=== PATIENT | male | born 1955 | race Caucasian/White ===

== ENCOUNTER 2016-10-14 22:22 | Emergency (ER) | payer MEDICAID, MEDICARE ==
[~2016-10-14] VITALS: Ht 182.9 cm; Wt 68.0 kg
[~2016-10-14 22:22] MED LIST: GABA100C4 PO; PLAV75TA29 PO; REME15TA PO
[2016-10-14 22:25] VITALS: BP 137/65; PULSE 79; RESP 16; TEMP 98.4; O2SAT 97
== END 2016-10-15 02:00 | disposition left against medical advice (07) ==
LOC: NED 22:22
DX: R22.41 Localized swelling, mass and lump, right lower limb (principal); R23.8 Other skin changes; Z53.21 Procedure and treatment not carried out due to patient leaving prior to being seen by health care provider
CPT/HCPCS: 99281

== ENCOUNTER 2016-11-17 17:07 | Emergency (ER) | payer MEDICARE ==
[~2016-11-17] VITALS: Ht 182.9 cm; Wt 65.0 kg
[2016-11-17 17:09] VITALS: BP 168/97; PULSE 76; RESP 17; TEMP 98.5; O2SAT 98
== END 2016-11-17 20:01 | disposition left against medical advice (07) ==
LOC: NED 17:07
DX: Z53.21 Procedure and treatment not carried out due to patient leaving prior to being seen by health care provider (principal)
CPT/HCPCS: 99281

== ENCOUNTER 2016-12-17 22:33 | Inpatient (IN) | payer MEDICARE, MEDICAID ==
[~2016-12-17] VITALS: Ht 182.9 cm; Wt 60.0 kg
[2016-12-17 22:44] VITALS: BP 120/77; PULSE 108; RESP 12; TEMP 99.3; O2SAT 98
[2016-12-17] MEDS ORDERED: DILA4TAB2 PO (22:56)
[2016-12-17] MEDS ORDERED: SODIUM CHLORIDE 0.9% FLUSH 10 ML FLUSH IVF PRN (23:15)
[2016-12-17 23:49] LABS: AUTOMATED NEUTROPHIL # 3.8 TH/MM3 (1.8-7.7); BASOPHIL % 0.8 % (0.0-2.0); EOSINOPHIL % 0.5 % (0.0-4.0); HEMATOCRIT 27.7 % (39.0-51.0); HEMO FLAGS DIFF FINAL; LYMPH % 10.3 % (9.0-44.0); LYMPHOCYTE # 0.5 TH/MM3 (1.0-4.8); MEAN CELL VOLUME 79.1 FL (80.0-100.0); MEAN CORPUSCULAR HEMOGLOBIN 25.4 PG (27.0-34.0); MEAN CORPUSCULAR HGB CONC 32.2 % (32.0-36.0); MONO % 5.5 % (0.0-8.0); NEUT % 82.9 % (16.0-70.0); PLATELET COUNT 166 TH/MM3 (150-450); RED CELL DISTRIBUTION WIDTH 15.3 % (11.6-17.2); WHITE BLOOD COUNT 4.5 TH/MM3 (4.0-11.0)
[2016-12-18] VITALS (14 sets, daily range): BP systolic 110–131; BP diastolic 57–75; PULSE 72–111; RESP 17–20; TEMP 97.7–99.9; O2SAT 94–99
--- NOTE | 2016-12-18 00:07 | RADRPT ---
EXAM DATE/TIME: 12/17/2016 23:33 [facility] COMPARISON: No previous studies available for comparison. INDICATIONS : Shortness of breath. MEDICAL HISTORY : Hepatitis C. Hypertension IV drug usage SURGICAL HISTORY : Appendectomy. Fusion, cervical. ENCOUNTER: Initial ACUITY: 1 day PAIN SCORE: 0/10 LOCATION: Bilateral chest FINDINGS: Mild diffuse interstitial opacities are seen in both lungs. There is mild streaky infiltrate of the r ight lung base. No large areas of consolidation are seen. No oral effusion or pneumothorax. Heart size stable, within normal limits. CONCLUSION: Mild diffuse interstitial infiltrates suggesting noncardiogenic pulmonary edema or atypical/viral pne umonia. Atelectasis versus early/mild lobar consolidation of the right base. Jarred Agustin MD on December 18, 2016 at 0:05 Board Certified Radiologist. This report was verified electronically.
[2016-12-18 00:27] LABS: ALKALINE PHOSPHATASE 117 U/L (45-117); ALT (GPT) 18 U/L (12-78); ANION GAP 9 MEQ/L (5-15); AST (GOT) 35 U/L (15-37); BICARBONATE 25.8 MEQ/L (21.0-32.0); BLOOD UREA NITROGEN 10 MG/DL (7-18); CHLORIDE 101 MEQ/L (98-107); GLOMERULAR FILTRATION RATE 85 ML/MIN (>89); MAGNESIUM 1.8 MG/DL (1.5-2.5); SODIUM (NA) 136 MEQ/L (136-145); TOTAL BILIRUBIN ADULT 0.7 MG/DL (0.2-1.0)
[2016-12-18 00:29] LABS: CREATINE KINASE 61 U/L (39-308); POTASSIUM 4.2 MEQ/L (3.5-5.1)
[2016-12-18] MEDS ORDERED: ASPIRIN 81 MG CHEW TAB CHEW ONE (03:00)
[2016-12-18] MEDS ORDERED: PANTOPRAZOLE SODIUM 40 MG VIAL IV PUSH ONE (03:00)
[2016-12-18] MEDS ORDERED: SODIUM CHLORID 0.9% 500 ML INJ 500 ML IV SCH (03:00)
[2016-12-18] MEDS ORDERED: CLINDAMYCIN INJ 600 MG in SODIUM CHLORIDE 0.9% INJ 100 ML IV ONE (03:00)
--- NOTE | 2016-12-18 03:19 | PD ---
HPI Chief Complaint: Respiratory Symptoms Time Seen by Provider: 23:11 Travel History International Travel<30 days: No Contact w/Intl Traveler<30days: No Traveled to known affect area: No History of Present Illness HPI 61-year-old male presents to the emergency department by EMS transport for complaint of 2 days of shortness of breath and multiple wounds and draining ulcerations of the legs and arms. Patient denies any substance use. Patient admits to previous IV drug abuse. Patient was also history of hypertension, dyslipidemia, COPD, CVA, cardiac disease, and peripheral neuropathy with chronic pain syndrome.. Patient took his last pain medication before coming to the emergency room. Patient was given updraft treatments 2 en route to the hospital with symptom relief. Patient does not report orthopnea or PND. Patient does not report worsening dyspnea on exertion but does have this periodically. Patient has had no claudication. Patient denies any fever or chills. Patient had chest tightness earlier but after updraft treatments that has resolved and denies any pain at this time. Patient denies any generalized weakness has had no nausea vomiting abdominal pain dysuria frequency urgency melena or hematochezia. Patient is prescribed pain medication through pain management provider and [facility] Past Medical History Narrative Medical Plavix CVA hypertension dyslipidemia COPD hepatitis C cardiac disease abnormal EKG cholecystectomy C-spine surgery tobaccoism; nursing notes reviewed Hx Anticoagulant Therapy: Yes (PLAVIX) Arthritis: No Asthma: No Autoimmune Disease: No Blood Disorders: No Anxiety: No Depression: Yes Heart Rhythm Problems: No Cancer: No Cardiovascular Problems: Yes High Cholesterol: No Chemotherapy: No Chest Pain: No Congestive Heart Failure: No Cirrhosis: Yes COPD: No Cerebrovascular Accident: Yes Diabetes: No Diminished Hearing: No Endocrine: No Gastrointestinal Disorders: Yes GERD: No Glaucoma: No Genitourinary: No Headaches: Yes Hepatitis: Yes (HEP-C) Hiatal Hernia: No Hypertension: Yes (states resolved) Immune Disorder: No Implanted Vascular Access Dvce: No Musculoskeletal: Yes Neurologic: Yes Psychiatric: Yes Reproductive: No Respiratory: Yes Integumentary: Yes (easily compromised) Immunizations Current: No Migraines: Yes Radiation Therapy: No Seizures: No Sickle Cell Disease: No Sleep Apnea: No Ulcer: No Past Surgical History Appendectomy: Yes Body Medical Devices: METAL , SCREWS IN C5, C6 Cardiac Surgery: No Cholecystectomy: Yes Ear Surgery: No Endocrine Surgery: No Eye Surgery: Yes Genitourinary Surgery: No Neurologic Surgery: Yes (c5-c6 discectomy and plating ) Oral Surgery: No Pacemaker: No Thoracic Surgery: No Other Surgery: Yes (PLATE IN NECK ) Social History Alcohol Use: No Tobacco Use: Yes (4-5 CIGARS A DAY ) Substance Use: No Allergies-Medications (Allergen,Severity, Reaction): Coded Allergies: penicillin G (Unverified Allergy, Intermediate, SOB, RASH, 11/28/16) *MDRO Multi-Drug Resistant Organism (Verified Adverse Reaction, Unknown, ) MRSA (wound) - 12/20/2012; (leg) - 11/01/15 Reported Meds & Prescriptions Reported Meds & Active Scripts Active Reported Dilaudid (Hydromorphone HCl) 4 Mg Tab 4 Mg PO Q6H PRN Plavix (Clopidogrel Bisulfate) 75 Mg Tab 75 Mg PO DAILY Gabapentin 100 Mg Cap 100 Mg PO TID Review of Systems Except as stated in HPI: all other systems reviewed are Neg General / Constitutional: No: Fever, Chills HENT: No: Congestion Cardiovascular: Positive: Chest Pain or Discomfort Respiratory: Positive: Shortness of Breath Gastrointestinal: No: Nausea, Abdominal Pain Genitourinary: No: Flank Pain Musculoskeletal: Positive: Myalgias, Arthralgias Skin: Positive Rash, Positive Lumps Neurologic: No: Weakness Psychiatric: No: Anxiety Hematologic/Lymphatic: No: Lymph Node Enlargement Physical Exam Narrative GENERAL: Well-developed well-nourished disheveled male in no acute distress no respiratory distress SKIN: Warm and dry. Multiple soft tissue areas of induration tenderness with and without ulceration or pustules over the bilateral upper extremities and lower extremities HEAD: Normocephalic. Atraumatic. EYES: No scleral icterus. No injection or drainage. NECK: Supple, trachea midline. No JVD or lymphadenopathy. CARDIOVASCULAR: Regular rate and rhythm without murmurs, gallops, or rubs. RESPIRATORY: Breath sounds equal bilaterally. No accessory muscle use. Few end expiratory wheezes GASTROINTESTINAL: Abdomen soft, non-tender, nondistended. MUSCULOSKELETAL: No cyanosis, or edema. BACK: Nontender without obvious deformity. No CVA tenderness. Data Data Last Documented VS Vital Signs Date Time Temp Pulse Resp B/P (MAP) Pulse Ox O2 Delivery O2 Flow Rate FiO2 12/17/16 22:48 108 12 98 Room Air 12/17/16 22:44 99.3 120/77 (91) Orders Orders Complete Blood Count With Diff (12/17/16 23:11) Comprehensive Metabolic Panel (12/17/16 23:11) B-Type Natriuretic Peptide (12/17/16 23:11) Magnesium (Mg) (12/17/16 23:11) Ckmb (Isoenzyme) Profile (12/17/16 23:11) Troponin I (12/17/16 23:11) Urinalysis - C+S If Indicated (12/17/16 23:11) Blood Culture (12/17/16 23:11) Iv Access Insert/Monitor (12/17/16 23:11) Electrocardiogram (12/17/16 23:11) Ecg Monitoring (12/17/16 23:11) Oximetry (12/17/16 23:11) Oxygen Administration (12/17/16 23:11) Chest, Single Ap (12/17/16 23:11) Sodium Chloride 0.9% Flush (Ns Flush) (12/17/16 23:15) Wound Culture And Gram Stain (12/17/16 23:11) Clindamycin Inj (Cleocin Inj) (12/18/16 03:00) Aspirin Chew (Aspirin Chew) (12/18/16 03:00) Pantoprazole Inj (Protonix Inj) (12/18/16 03:00) Sodium Chlorid 0.9% 500 Ml Inj (Ns 500 M (12/18/16 03:00) Albuterol-Ipratropium Neb (Duoneb Neb) (12/18/16 03:30) Methylprednisolone So Succ Inj (Solumedr (12/18/16 03:30) Drug Screen, Random Urine (12/18/16 03:19) Labs Laboratory Tests Test 12/17/16 23:26 White Blood Count 4.5 TH/MM3 Red Blood Count 3.50 MIL/MM3 Hemoglobin 8.9 GM/DL Hematocrit 27.7 % Mean Corpuscular Volume 79.1 FL Mean Corpuscular Hemoglobin 25.4 PG Mean Corpuscular Hemoglobin Concent 32.2 % Red Cell Distribution Width 15.3 % Platelet Count 166 TH/MM3 Mean Platelet Volume 7.2 FL Neutrophils (%) (Auto) 82.9 % Lymphocytes (%) (Auto) 10.3 % Monocytes (%) (Auto) 5.5 % Eosinophils (%) (Auto) 0.5 % Basophils (%) (Auto) 0.8 % Neutrophils # (Auto) 3.8 TH/MM3 Lymphocytes # (Auto) 0.5 TH/MM3 Monocytes # (Auto) 0.2 TH/MM3 Eosinophils # (Auto) 0.0 TH/MM3 Basophils # (Auto) 0.0 TH/MM3 CBC Comment DIFF FINAL Differential Comment Blood Urea Nitrogen 10 MG/DL Creatinine 0.91 MG/DL Random Glucose 105 MG/DL Total Protein 6.6 GM/DL Albumin 2.6 GM/DL Calcium Level 7.9 MG/DL Magnesium Level 1.8 MG/DL Alkaline Phosphatase 117 U/L Aspartate Amino Transf (AST/SGOT) 35 U/L Alanine Aminotransferase (ALT/SGPT) 18 U/L Total Bilirubin 0.7 MG/DL Sodium Level 136 MEQ/L Potassium Level 4.2 MEQ/L Chloride Level 101 MEQ/L Carbon Dioxide Level 25.8 MEQ/L Anion Gap 9 MEQ/L Estimat Glomerular Filtration Rate 85 ML/MIN Total Creatine Kinase 61 U/L Troponin I 0.06 NG/ML B-Type Natriuretic Peptide 148 PG/ML MDM Medical Decision Making Medical Screen Exam Complete: Yes Emergency Medical Condition: Yes Medical Record Reviewed: Yes Interpretation(s) Last Impressions Chest X-Ray 12/17/16 [id number] Signed Impressions: Service Date/Time: Saturday, December 17, 2016 23:33 - CONCLUSION: Mild diffuse interstitial infiltrates suggesting noncardiogenic pulmonary edema or atypical/viral pneumonia. Atelectasis versus early/mild lobar consolidation of the right base. Jarred Agustin MD EKG normal sinus rhythm rate 90 age-indeterminate anteroseptal infarct no acute reciprocal changes QS in V1 through V3; review of medical records indicates perforation with previous anterior septal infarct changes on EKG Vital Signs Date Time Temp Pulse Resp B/P (MAP) Pulse Ox O2 Delivery O2 Flow Rate FiO2 12/17/16 22:48 108 12 98 Room Air 12/17/16 22:44 99.3 108 12 120/77 (91) 98 CBC & BMP Diagram 12/17/16 23:26 Total Protein 6.6, Albumin 2.6 L, Calcium Level 7.9 L, Magnesium Level 1.8, Alkaline Phosphatase 117, Aspartate Amino Transf (AST/SGOT) 35, Alanine Aminotransferase (ALT/SGPT) 18, Total Bilirubin 0.7 Differential Diagnosis Cellulitis abscesses COPD exacerbation CHF ACS [place] anemia Narrative Course IV access obtained specimens collected and sent for resulting EKG shows QS anteroseptally no ischemic changes or supple changes noted; patient given additional updraft treatment; cultures obtained from wound sites and antibiotic administered Patient resting comfortable voicing no concerns or complaints Patient administered aspirin and Protonix rectal exam negative for blood and noted to have anemic hemoglobin of 8.6 but in view of multiple risk factors for cardiac disease also administered aspirin after troponin I 0.06. Patient with multiple upper extremity and lower extremity areas of soft tissue tenderness swelling induration with and without fluctuance and various stages of ulcerations; administered clindamycin for abscesses/cellulitis after cultures obtained Patient administered Solu-Medrol and additional DuoNeb updraft for COPD/ emphysema symptoms with resolution of shortness of breath will require ongoing updraft treatments Review of medical records indicates last stress test 03/10/16 showed evidence of mild hypokinesis and low normal ejection fraction with dizziness and some urination of stress portion secondary to symptoms but no EKG changes. Patient resting comfortably at this time will admit for ongoing management of COPD cellulitis and abscess of the forearm and lower extremities all elevated troponin I 0.06 history of abnormal EKG/suspect coronary artery disease and history of IV drug abuse Physician Communication Physician Communication Discussed with Dr. Otto for admission Diagnosis Primary Impression: COPD (chronic obstructive pulmonary disease) Qualified Codes: J44.9 - Chronic obstructive pulmonary disease, unspecified Additional Impressions: Cellulitis and abscess of forearm Elevated troponin I level Hx IVDA Admitting Information Admitting Physician Requests: Admit Candida Silva MD Dec 18, 2016 03:19
[2016-12-18] MEDS ORDERED: methylPREDNISolone SOD SUCC 125 MG/2 ML VIAL IV PUSH ONE (03:30)
[2016-12-18] MEDS ORDERED: RESP: ALBUTEROL 2.5 MG/IPRATROPIUM 0.5 MG NEB (SCH) NEB ONE (03:30)
[2016-12-18] MEDS ORDERED: SODIUM CHLORIDE 0.9% FLUSH 10 ML FLUSH IVF PRN (03:30)
[2016-12-18] MEDS ORDERED: BISACODYL 10 MG SUPP RECTAL PRN (04:15)
[2016-12-18] MEDS ORDERED: MAGNESIUM HYDROXIDE SUSP 30 ML CUP PO PRN (04:15)
[2016-12-18] MEDS ORDERED: SENNOSIDES 8.6 MG TAB PO PRN (04:15)
[2016-12-18] MEDS ORDERED: ACETAMINOPHEN 325 MG TAB PO PRN (04:15)
[2016-12-18] MEDS ORDERED: NALOXONE HCL 0.4 MG/ML AMP IV PRN (04:15)
[2016-12-18] MEDS ORDERED: RESP: ALBUTEROL 2.5 MG/IPRATROPIUM 0.5 MG NEB (PRN) NEB (04:15)
[2016-12-18] MEDS ORDERED: ONDANSETRON HCL 4 MG/2 ML VIAL IVP PRN (04:15)
[2016-12-18] MEDS ORDERED: RESP: ALBUTEROL 2.5 MG/3 ML NEB (PRN) INH (04:15)
[2016-12-18 04:22] LABS: BLOOD, URINE NEG (NEG); COMMENT (UR) CULT NOT INDICATED; CULTURE IF INDICATED CULT NOT INDICATED; GLUCOSE,URINE NEG (NEG); HYALINE CAST, URINE 1 /lpf (RARE); KETONE, URINE NEG (NEG); MUCUS URINE FEW /lpf (OCC); NITRITE,URINE NEG (NEG); PH, URINE 7.5 (5.0-8.5); URINE COLOR YELLOW (YELLW/STRAW)
--- NOTE | 2016-12-18 04:32 | HHI.HP ---
[facility] Meron Guerra MD Admission Diagnosis copd; cellulitis/abscesses arm/leg; elevated tropnin I Diagnoses: Chief Complaint: Short of breath Travel History International Travel<30 Days: No Contact w/Intl Traveler <30 Da: No Traveled to Known Affected Are: No History of Present Illness 61 years old female presented to the ED complaining of 2days history of worsening short of breath, along with multiple wound some of it ulcerating and draining pus those on the leg and arm patient has a history of substance abuse iv in the past, history of hypertension hyperlipidemia COPD CVA cardiac disease and peripheral neuropathy. Patient. Patient on nasal cannula O2, stated he's been coughing and the cough was with yellowish phlegm, he had woken up yesterday drenching in sweat. No nausea or vomiting abdominal pain diarrhea or constipation, dysuria urgency frequency dizziness or lightheadedness Review of Systems All systems reviewed and was positive for what is mentioned in history of present illness otherwise negative Past Family Social History Past Medical History History of CVA dyslipidemia COPD Hepatitisc Cardiac normal , Past Surgical History Not aware of significant disease in the family Allergies: Coded Allergies: penicillin G (Unverified Allergy, Intermediate, SOB, RASH, 11/28/16) *MDRO Multi-Drug Resistant Organism (Verified Adverse Reaction, Unknown, ) MRSA (wound) - 12/20/2012; (leg) - 11/01/15 Family History Smoke daily for last over 20 years Alcohol or illicit abuse Physical Exam Vital Signs Vital Signs Date Time Temp Pulse Resp B/P (MAP) Pulse Ox O2 Delivery O2 Flow Rate FiO2 12/18/16 03:50 111 20 120/68 (85) 99 2.00 12/18/16 03:49 99 2.00 12/18/16 03:32 95 Nasal Cannula 2.00 12/17/16 22:48 108 12 98 Room Air 12/17/16 22:44 99.3 108 12 120/77 (91) 98 Physical Exam GENERAL: This is a well-nourished, well-developed patient, in no apparent distress. SKIN: No rashes, ecchymoses or lesions. Cool and dry. HEAD: Atraumatic. Normocephalic. No temporal or scalp tenderness. EYES: Pupils equal round and reactive. Extraocular motions intact. No scleral icterus. No injection or drainage. ENT: Nose without bleeding, purulent drainage or septal hematoma. Throat without erythema, tonsillar hypertrophy or exudate. Uvula midline. Airway patent. NECK: Trachea midline. No JVD or lymphadenopathy. Supple, nontender, no meningeal signs. CARDIOVASCULAR: Regular rate and rhythm without murmurs, gallops, or rubs. RESPIRATORY: Clear to auscultation. Breath sounds equal bilaterally. No wheezes , rales, or rhonchi. GASTROINTESTINAL: Abdomen soft, non-tender, nondistended. No hepato-splenomegaly , or palpable masses. No guarding. MUSCULOSKELETAL: Extremities without clubbing, cyanosis, or edema. No joint tenderness, effusion, or edema noted. No calf tenderness. Negative Homans sign bilaterally. NEUROLOGICAL: Awake and alert. Cranial nerves II through XII intact. Motor and sensory grossly within normal limits. Five out of 5 muscle strength in all muscle groups. Normal speech. Laboratory Laboratory Tests Test 12/17/16 23:26 12/18/16 03:45 White Blood Count 4.5 Red Blood Count 3.50 Hemoglobin 8.9 Hematocrit 27.7 Mean Corpuscular Volume 79.1 Mean Corpuscular Hemoglobin 25.4 Mean Corpuscular Hemoglobin Concent 32.2 Red Cell Distribution Width 15.3 Platelet Count 166 Mean Platelet Volume 7.2 Neutrophils (%) (Auto) 82.9 Lymphocytes (%) (Auto) 10.3 Monocytes (%) (Auto) 5.5 Eosinophils (%) (Auto) 0.5 Basophils (%) (Auto) 0.8 Neutrophils # (Auto) 3.8 Lymphocytes # (Auto) 0.5 Monocytes # (Auto) 0.2 Eosinophils # (Auto) 0.0 Basophils # (Auto) 0.0 CBC Comment DIFF FINAL Differential Comment Blood Urea Nitrogen 10 Creatinine 0.91 Random Glucose 105 Total Protein 6.6 Albumin 2.6 Calcium Level 7.9 Magnesium Level 1.8 Alkaline Phosphatase 117 Aspartate Amino Transf (AST/SGOT) 35 Alanine Aminotransferase (ALT/SGPT) 18 Total Bilirubin 0.7 Sodium Level 136 Potassium Level 4.2 Chloride Level 101 Carbon Dioxide Level 25.8 Anion Gap 9 Estimat Glomerular Filtration Rate 85 Total Creatine Kinase 61 Troponin I 0.06 B-Type Natriuretic Peptide 148 Urine Color YELLOW Urine Turbidity CLEAR Urine pH 7.5 Urine Specific [place] 1.013 Urine Protein NEG Urine Glucose (UA) NEG Urine Ketones NEG Urine Occult Blood NEG Urine Nitrite NEG Urine Bilirubin NEG Urine Urobilinogen 2.0 Urine Leukocyte Esterase NEG Urine WBC 1 Urine Hyaline Casts 1 Urine Mucus FEW Microscopic Urinalysis Comment CULT NOT INDICATED Urine Opiates Screen POS Urine Barbiturates Screen NEG Urine Amphetamines Screen NEG Urine Benzodiazepines Screen NEG Urine Cocaine Screen POS Urine Cannabinoids Screen NEG Date/Time Source Procedure Growth Status 12/17/16 23:28 Blood Peripheral Aerobic Blood Culture Pending Received 12/17/16 23:28 Blood Peripheral Anaerobic Blood Culture Pending Received 12/17/16 23:20 Wound Leg Gram Stain Pending Received 12/17/16 23:20 Wound Leg Wound Culture Pending Received Result Diagram: 12/17/16232512/17/162325 Imaging Last Impressions Chest X-Ray 12/17/161 Signed Impressions: Service Date/Time: Saturday, December 17, 2016 23:33 - CONCLUSION: Mild diffuse interstitial infiltrates suggesting noncardiogenic pulmonary edema or atypical/viral pneumonia. Atelectasis versus early/mild lobar consolidation of the right base. Jarred Agustin MD Caprini VTE Risk Assessment Caprini VTE Risk Assessment: Mod/High Risk (score >= 2) VTE Pharm Contraindication: Coagulopathy,INR elevated Caprini Risk Assessment Model Point Value = 1 Point Value = 2 Point Value = 3 Point Value = 5 Age 41-60 Minor surgery BMI > 25 kg/m2 Swollen legs Varicose veins or History of unexplained or recurrent spontaneous Oral contraceptives or hormone replacement Sepsis (< 1 month) Serious lung disease, including pneumonia (< 1 month) Abnormal pulmonary function Acute myocardial infarction Congestive heart failure (< 1 month) History of inflammatory bowel disease Medical patient at bed rest Age 61-74 Arthroscopic surgery Major open surgery (> 45 min) Laparoscopic surgery (> 45 min) Malignancy Confined to bed (> 72 hours) Immobilizing plaster cast Central venous access Age >= 75 History of VTE Family history of VTE Factor V Leiden Prothrombin [id number] Lupus anticoagulant Anticardiolipin antibodies Elevated serum homocysteine Heparin-induced thrombocytopenia Other congenital or acquired thrombophilia Stroke (< 1 month) Elective arthroplasty Hip, pelvis, or leg fracture Acute spinal cord injury (< 1 month) Prophylaxis Regimen Total Risk Factor Score Risk Level Prophylaxis Regimen 0-1 Low Early ambulation 2 Moderate Order ONE of the following: *Sequential Compression Device (SCD) *Heparin 5000 units SQ BID 3-4 Higher Order ONE of the following medications: *Heparin 5000 units SQ TID *Enoxaparin/Lovenox 40 mg SQ daily (WT < 150 kg, CrCl > 30 mL/min) *Enoxaparin/Lovenox 30 mg SQ daily (WT < 150 kg, CrCl > 10-29 mL/min) *Enoxaparin/Lovenox 30 mg SQ BID (WT < 150 kg, CrCl > 30 mL/min) AND/OR *Sequential Compression Device (SCD) 5 or more Highest Order ONE of the following medications: *Heparin 5000 units SQ TID (Preferred with Epidurals) *Enoxaparin/Lovenox 40 mg SQ daily (WT < 150 kg, CrCl > 30 mL/min) *Enoxaparin/Lovenox 30 mg SQ daily (WT < 150 kg, CrCl > 10-29 mL/min) *Enoxaparin/Lovenox 30 mg SQ BID (WT < 150 kg, CrCl > 30 mL/min) AND *Sequential Compression Device (SCD) Assessment and Plan Assessment and Plan 61 years old male admitted with -Severe short of breath with interstitial infiltrate on chest x-ray possible atypical versus bilateral pneumonia -Multiple abscess wound with cellulitis on the upper and lower extremity -Positive scratch by the dog on the left arm suspicious for [place], and history of IVDA which could be responsible for this infection -Increase troponin rule out underlying ischemia -Tobacco abuse> patient counseled -Underlying COPD -History of dyslipidemia, CVA, peripheral neuropathy, chronic pain syndrome -Microcytic hyperchromic anemia -DVT prophylaxis Plan: Admit to observation with telemetry O2 to keep O2 sat above 92% DuoNeb scheduled and as needed Continue cycling cardiac enzyme Check urine antigen for Legionella and pneumococcus Patient received clindamycin in ED for skin abscess Will start Levaquin for respiratory infection coverage Consult ID to guide antibiotic therapy, suspicious Scratch disease versus IVDA, check 2-D echo, monitor for any fever. SCD and heparin for DVT prophylaxis Angelina Otto MD Dec 18, 2016 04:32
[2016-12-18] MEDS: LEVOFLOXACIN 750 MG TAB PO SCH (07:17)
[2016-12-18] MEDS: RESP: ALBUTEROL 2.5 MG/IPRATROPIUM 0.5 MG NEB (SCH) NEB ×4 (07:47→20:54)
[2016-12-18] MEDS: DOCUSATE SODIUM 50 MG/SENNA 8.6 MG TAB PO SCH ×2 (09:00→09:48)
[2016-12-18] MEDS: CLOPIDOGREL 75 MG TAB PO SCH (09:48)
[2016-12-18] MEDS: GABAPENTIN 100 MG CAP PO SCH ×3 (09:48→18:00)
[2016-12-18] MEDS: SODIUM CHLORIDE 0.9% FLUSH 10 ML FLUSH IV FLUSH SCH ×2 (09:49→20:53)
[2016-12-18] MEDS ORDERED: RESP: ALBUTEROL 2.5 MG/IPRATROPIUM 0.5 MG NEB (SCH) INH (10:00)
--- NOTE | 2016-12-18 14:18 | HHI.PR ---
Subjective Remarks Follow-up COPD exacerbation and now non-ST elevation SD 12/18/16-patient seen and examined, reports some improvement of shortness of breath. Requesting some narcotics otherwise states he will signing AMA. Objective Vitals Vital Signs Date Time Temp Pulse Resp B/P (MAP) Pulse Ox O2 Delivery O2 Flow Rate FiO2 12/18/16 13:49 99.9 80 19 126/75 (92) 96 12/18/16 10:25 84 12/18/16 07:50 94 21 12/18/16 07:26 97.7 87 20 131/67 (88) 98 12/18/16 05:33 12/18/16 05:16 98.2 78 18 112/66 (81) 95 12/18/16 03:50 111 20 120/68 (85) 99 2.00 12/18/16 03:49 99 2.00 12/18/16 03:32 95 Nasal Cannula 2.00 12/17/16 22:48 108 12 98 Room Air 12/17/16 22:44 99.3 108 12 120/77 (91) 98 I/O 12/17/16 12/17/16 12/17/16 12/18/16 12/18/16 12/18/16 07:00 15:00 23:00 07:00 15:00 23:00 Intake Total 300 ml Balance 300 ml Intake Oral 300 ml Result Diagram: 12/17/16232512/17/162325 Imaging Last Impressions Chest X-Ray 12/17/16 2311 Signed Impressions: Service Date/Time: Saturday, December 17, 2016 23:33 - CONCLUSION: Mild diffuse interstitial infiltrates suggesting noncardiogenic pulmonary edema or atypical/viral pneumonia. Atelectasis versus early/mild lobar consolidation of the right base. Jarred Agustin MD Objective Remarks GENERAL: NAD SKIN: Warm and dry. HEAD: Normocephalic. EYES: No scleral icterus. No injection or drainage. NECK: Supple, trachea midline. No JVD or lymphadenopathy. CARDIOVASCULAR: Regular rate and rhythm without murmurs, gallops, or rubs. RESPIRATORY: Breath sounds decrease bilaterally. No accessory muscle use. GASTROINTESTINAL: Abdomen soft, non-tender, nondistended. MUSCULOSKELETAL: No cyanosis, or edema. BACK: Nontender without obvious deformity. No CVA tenderness. A/P Assessment and Plan 61-year-old man with Dyspnea Community-acquired pneumonia Chest x-ray noted in review Check CTA to rule out PE S/p clindamycin and currently on Levaquin pending evaluation from infectious disease specialist Non-ST elevation SD? Cocaine cardiomyopathy? ACS rule out per protocol with serial cardiac enzyme and EKGs Cardiology consultation for evaluation for possible Left Heart Cath Check 2D echo Lovenox subcutaneous every 12 COPD exacerbation CTA pending to rule out PE Change Solu-Medrol to 20 mg every 8 hour Start Symbicort, Spiriva and continue with JULIO as well as antibiotic Tobacco cessation counseling provided Nicotine dependence Counseled to quit Nicotine patch DVT prophylaxis: Oracio Edwards MD Dec 18, 2016 14:18
[2016-12-18] MEDS ORDERED: methylPREDNISolone SOD SUCC 125 MG/2 ML VIAL IVP SCH (15:00)
[2016-12-18] MEDS ORDERED: IOHEXOL 350 MG/ML 10 ML VIAL (for RAD DIAG) IVCONTRAST ONE (18:01)
--- NOTE | 2016-12-18 18:12 | RADRPT ---
EXAM DATE/TIME: 12/18/2016 17:50 [facility] COMPARISON: No previous studies available for comparison. INDICATIONS : Chest pain , evaluate for pulmonary emoblism. IV CONTRAST: 75 cc Omnipaque 350 (iohexol) IV RADIATION DOSE: 7.37 CTDIvol (mGy) MEDICAL HISTORY : Cardiovascular disease. Hepatitis C. Cirrhosis. SURGICAL HISTORY : None. ENCOUNTER: Initial ACUITY: 1 day PAIN SCALE: 3/10 LOCATION: chest TECHNIQUE: Volumetric scanning of the chest was performed using a pulmonary embolism protocol MIP images were re constructed. Using automated exposure control and adjustment of the mA and/or kV according to patien t size, radiation dose was kept as low as reasonably achievable to obtain optimal diagnostic quality images. DICOM format image data is available electronically for review and comparison. Follow-up recommendations for detected pulmonary nodules are based at a minimum on nodule size and pa tient risk factors according to Fleischner Society Guidelines. FINDINGS: LUNGS: Patchy airspace disease is seen in both the right and left lungs. There is trace fluid in the minor fissure on the right. There is nonspecific right hilar and mediastinal adenopath y. There is no central pulmonary emboli evident small right pleural effusion is evident. MEDIASTINUM: There is good visualization of the great vessels of the middle mediastinum. AXILLA: There is no axillary adenopathy MUSCULOSKELETAL: Within normal limits for patient age. MISCELLANEOUS: The visualized upper abdominal organs demonstrate no acute abnormality. CONCLUSION: There is no central pulmonary emboli. Minimal patchy airspace disease in the right lung with small right pleural effusion Right infrahilar adenopathy. Bronchoscopy would be of benefit for further evaluation. Jean-Claude Whitfield MD FACR on December 18, 2016 at 18:03 Board Certified Radiologist. This report was verified electronically.
--- NOTE | 2016-12-18 18:21 | MB ---
cc: TWYLA CRAWFORD M.D. DATE OF CONSULTATION 12/18/2016 HISTORY OF THE PRESENT ILLNESS Bay is a very pleasant 61-year-old gentleman who states he has had IL in the past. He smokes. He presents with chief complaint of shortness of breath and chest pain. His pain is currently relieved. He is actually asleep. He is difficult to arouse from sleep but he is lucid once he is awake. Otherwise denies any fevers, chills, cough, GI or bleeding, paroxysmal nocturnal dyspnea, orthopnea, syncope or dizziness. In the ER note he is short of breath x2 days. He has multiple wounds, draining ulcerations of the legs and arms. PAST MEDICAL HISTORY 1. IV drug abuse. 2. Hypertension. 3. Dyslipidemia. 4. Chronic obstructive pulmonary disease. 5. Cerebrovascular accident. 6. Cardiac disease. 7. Peripheral neuropathy. 8. Chronic pain syndrome. 9. History of hepatitis C. 10. C-spine surgery. 11. Depression. 12. Cirrhosis. 13. Appendectomy. 14. Metal screws at C5-C6. 15. Cholecystectomy. 16. Eye surgery. 17. C5-6 diskectomy and plating. SOCIAL HISTORY Denies alcohol use. Smokes four to five cigarettes a day. ALLERGIES MRSA. MEDICATIONS Prior to admission: 1. Dilaudid. 2. Plavix. 3. Gabapentin. Medications in the hospital: 1. Methyl prednisolone 20 milligrams IV q.8h. 2. Lovenox 60 subcu q.12 h. 3. Clopidogrel 75 mg daily. 4. Gabapentin 100 mg p.o. t.i.d. 5. Levofloxacin 750 mg q.24 h. PHYSICAL EXAMINATION VITAL SIGNS: Blood pressure 126/75, pulse 80, respiratory rate 19, temperature 99.9. GENERAL: He is alert and oriented times three in no acute distress. NECK: Supple. No JVD or bruits. CARDIOVASCULAR: Normal S1-S2. No murmurs, rubs, or gallops. LUNGS: Clear to auscultation bilaterally. ABDOMEN: Soft and nontender, nondistended with positive bowel sounds. EXTREMITIES: No lower extremity edema. His EKG shows anteroseptal Q waves, normal sinus rhythm at 91 beats per minute. Also note echocardiogram on October 25, 2015 showed an EF of 50-55%, mild stenosis of the aortic valve, mild aortic valve regurgitation. The mean aortic valve gradient was 15 mmHg. LABORATORY DATA White count 4.5, hemoglobin 8.9, hematocrit 27.7, platelet count was 66. Sodium 136, potassium 4.2, chloride 101, bicarbonate 25.8, BUN 10, creatinine 0.91. LFTs normal. Troponin is 0.06 initially then 1.12. BNP 148. Toxicology is positive for cocaine, opiates. DIAGNOSES He has the following diagnoses: 1. Non-ST elevation myocardial infarction. 2. Cocaine abuse. 3. History of IV drug abuse. 4. Ulcerations along the extremities. 5. Low albumin. 6. Decompensated congestive heart failure. 7. Aortic valve stenosis. 8. History of cirrhosis. 9. Tobacco use. 10. Anemia. DISCUSSION At this point in time the patient does not appear to be an ideal candidate for catheterization and stenting due to his multiple extremity lacerations and anemia. Contact precautions and he is currently asymptomatic. I would prefer that he is more medically optimized. I agree with continuing Lovenox and Plavix. If the patient's hemoglobin remains stable and there is no active bleeding found and his extremity lesions improve, we will consider left heart catheterization. The patient is willing to proceed with left heart catheterization if necessary. Again he has multiple wounds and draining ulcerations of the legs and arms, therefore again I prefer medical management initially. The patient strongly recommended tobacco cessation. MD FELICIA Harding/KK /3:37 PM /5:47 PM
--- NOTE | 2016-12-18 20:03 | EKG ---
Date Performed: 12/18/2016 Time Performed: 03:00:41 PTAGE: 61 years EKG: Sinus rhythm ANTEROSEPTAL MYOCARDIAL INFARCTION ABNORMAL ECG PREVIOUS TRACING : 03/09/2016 21.57 DOCTOR: Cookie Berman Interpretating Date/Time 12/18/2016 20:01:23
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
[2016-12-18] MEDS ORDERED: Vancomycin Consult Pharmacy 1 EA OTHER SCH (20:30)
[2016-12-18] MEDS: ENOXAPARIN SODIUM 60 MG/0.6 ML SYRINGE SQ SCH (20:54)
[2016-12-18] MEDS: methylPREDNISolone SOD SUCC 125 MG/2 ML VIAL IVP SCH (22:08)
[2016-12-18] MEDS: VANCOMYCIN INJ 700 MG in SODIUM CHLOR 0.9% 250 ML INJ 250 ML IV SCH (22:08)
[2016-12-19] VITALS (9 sets, daily range): BP systolic 120–133; BP diastolic 61–90; PULSE 60–82; RESP 17–19; TEMP 97.8–98.5; O2SAT 95–100
[2016-12-19] MEDS: methylPREDNISolone SOD SUCC 125 MG/2 ML VIAL IVP SCH (06:05)
[2016-12-19] MEDS: LEVOFLOXACIN 750 MG TAB PO SCH (06:05)
[2016-12-19 06:48] LABS: AUTOMATED NEUTROPHIL # 8.9 TH/MM3 (1.8-7.7); BASOPHIL % 0.4 % (0.0-2.0); HEMO FLAGS DIFF FINAL; LYMPH % 5.6 % (9.0-44.0); LYMPHOCYTE # 0.5 TH/MM3 (1.0-4.8); MEAN CELL VOLUME 77.8 FL (80.0-100.0); MEAN CORPUSCULAR HEMOGLOBIN 25.4 PG (27.0-34.0); MEAN CORPUSCULAR HGB CONC 32.6 % (32.0-36.0); MONO % 2.9 % (0.0-8.0); NEUT % 91.1 % (16.0-70.0); PLATELET COUNT 251 TH/MM3 (150-450); RED BLOOD COUNT 4.11 MIL/MM3 (4.50-5.90); RED CELL DISTRIBUTION WIDTH 15.3 % (11.6-17.2); WHITE BLOOD COUNT 9.7 TH/MM3 (4.0-11.0)
[2016-12-19 06:58] LABS: BICARBONATE 26.8 MEQ/L (21.0-32.0); POTASSIUM 4.3 MEQ/L (3.5-5.1)
[2016-12-19] MEDS: RESP: ALBUTEROL 2.5 MG/IPRATROPIUM 0.5 MG NEB (SCH) NEB ×2 (07:55→11:25)
[2016-12-19] MEDS: CLOPIDOGREL 75 MG TAB PO SCH (09:42)
[2016-12-19] MEDS: SODIUM CHLORIDE 0.9% FLUSH 10 ML FLUSH IV FLUSH SCH (09:42)
[2016-12-19] MEDS: GABAPENTIN 100 MG CAP PO SCH (09:42)
[2016-12-19] MEDS: ENOXAPARIN SODIUM 60 MG/0.6 ML SYRINGE SQ SCH (09:42)
[2016-12-19] MEDS ORDERED: PNEUMOCOCCAL POLYVALENT INJ 25 MCG/0.5 ML SYR IM ONE (10:00)
[2016-12-19] MEDS ORDERED: INFLUENZA VIRUS VACCINE (QUADRIVALENT) 0.5 ML SYR IM ONE (10:00)
[2016-12-19] MEDS ORDERED: SUBO8MIS SL (10:05)
--- NOTE | 2016-12-19 10:10 | HHI.PR ---
Subjective Remarks Follow-up non-ST elevation CT/community-acquired bacteria pneumonia/bacteremia/ multiple skin abscesses 12/19/16-patient seen and examined, reports improvement of shortness of breath, 4 out of 4 blood culture positive. Complains of some back pain. Requesting to be placed back on his Suboxone Objective Vitals Vital Signs Date Time Temp Pulse Resp B/P (MAP) Pulse Ox O2 Delivery O2 Flow Rate FiO2 12/19/16 07:56 96 12/19/16 07:18 97.9 82 18 123/66 (85) 100 12/19/16 05:59 97.9 77 17 123/69 (87) 97 12/19/16 05:16 72 12/19/16 04:50 97.8 60 19 126/61 (82) 100 12/19/16 03:24 98.5 82 18 120/90 (100) 96 12/19/16 01:21 98.1 77 18 133/71 (91) 95 12/19/16 00:04 74 12/18/16 23:35 98.1 77 18 110/57 (74) 95 12/18/16 22:03 80 12/18/16 21:58 18 98 12/18/16 21:01 94 21 12/18/16 19:58 98.2 85 19 113/69 (84) 99 12/18/16 17:00 74 12/18/16 16:02 98.5 72 17 117/62 (80) 99 12/18/16 13:49 99.9 80 19 126/75 (92) 96 12/18/16 10:25 84 I/O 12/18/16 12/18/16 12/18/16 12/19/16 12/19/16 12/19/16 07:00 15:00 23:00 07:00 15:00 23:00 Intake Total 300 ml 240 ml 50 ml Balance 300 ml 240 ml 50 ml Intake Oral 300 ml 240 ml 50 ml # Voids 1 Result Diagram: 12/19/16 0510 12/19/16 [address] Angiography 12/18/16 0000 Signed Impressions: Service Date/Time: Sunday, December 18, 2016 17:50 - CONCLUSION: There is no central pulmonary emboli. Minimal patchy airspace disease in the right lung with small right pleural effusion Right infrahilar adenopathy. Bronchoscopy would be of benefit for further evaluation. Jean-Claude Whitfield MD FACR Chest X-Ray 12/17/16 2311 Signed Impressions: Service Date/Time: Saturday, December 17, 2016 23:33 - CONCLUSION: Mild diffuse interstitial infiltrates suggesting noncardiogenic pulmonary edema or atypical/viral pneumonia. Atelectasis versus early/mild lobar consolidation of the right base. Jarred Agustin MD Objective Remarks GENERAL: NAD SKIN: Warm and dry. HEAD: Normocephalic. EYES: No scleral icterus. No injection or drainage. NECK: Supple, trachea midline. No JVD or lymphadenopathy. CARDIOVASCULAR: Regular rate and rhythm without murmurs, gallops, or rubs. RESPIRATORY: Breath sounds decrease bilaterally. No accessory muscle use. GASTROINTESTINAL: Abdomen soft, non-tender, nondistended. MUSCULOSKELETAL: No cyanosis, or edema. BACK: Nontender without obvious deformity. No CVA tenderness. A/P Problem List: (1) Gram-positive cocci bacteremia ICD Code: R78.81 - Bacteremia (2) Non-ST elevation CT (NSTEMI) ICD Code: I21.4 - Non-ST elevation (NSTEMI) myocardial infarction (3) Bacterial skin infection of leg ICD Code: L03.119 - Cellulitis of unspecified part of limb (4) Community acquired bacterial pneumonia ICD Code: J15.9 - Unspecified bacterial pneumonia Assessment and Plan 61-year-old man with Gram-positive bacteremia 4/4 blood culture positive Currently on vancomycin per infectious disease specialist Repeat blood culture 2-D echo pending Bilateral lower extremities skin infections/abscesses Wound culture positive for MRSA Currently on vancomycin IV and by mouth Levaquin Dyspnea Community-acquired pneumonia Chest x-ray noted in review CTA ruled out PE Currently on vancomycin per infectious disease specialist Non-ST elevation CT Cocaine cardiomyopathy? ACS rule out per protocol with serial cardiac enzyme and EKGs Cardiology consultation appreciated however secondary to lower extremities skin infections, unable to perform left heart catheterization 2D echo pending Continue with Lovenox subcutaneous every 12H and Plavix COPD exacerbation CTA ruled out PE Continue Solu-Medrol 20 mg every 8 hour Currently on Symbicort, Spiriva and continue with JULIO as well as antibiotic Tobacco cessation counseling provided Nicotine dependence Counseled to quit Nicotine patch DVT prophylaxis: Lovenox Change admission to inpatient Oracio Chaudhari MD Dec 19, 2016 10:10
[2016-12-19] MEDS: VANCOMYCIN INJ 700 MG in SODIUM CHLOR 0.9% 250 ML INJ 250 ML IV SCH (10:40)
--- NOTE | 2016-12-19 12:53 | PD.AMA ---
Against Medical Advice Note Discharge Disposition: Against Medical Advice AMA Statement Patient Bay Rosenberg has decided to leave the hospital against medical advice. This patient has the capacity to refuse care and understands the risks of leaving, including permanent disability and/or , and has had an opportunity to ask questions about his condition. The patient has been informed that he may return for care at any time, and follow up has been arranged/ advised. Oracio Chaudhari MD Dec 19, 2016 12:53
--- NOTE | 2016-12-19 13:51 | EKG ---
Date Performed: 12/18/2016 Time Performed: 16:43:04 PTAGE: 61 years EKG: Sinus rhythm SEPTAL MYOCARDIAL INFARCTION MODERATE T-WAVE ABNORMALITY, CONSIDER INFERIOR ISCHEMIA ABNORMAL ECG Co mpared to prior tracing no significant change PREVIOUS TRACING DOCTOR: Jabari Green Interpretating Date/Time 12/19/2016 13:48:07
[2016-12-19] MEDS ORDERED: VANCOMYCIN 1,000 MG/NS 250 ML IV SCH ×2 (18:00)
[2016-12-19] MEDS ORDERED: methylPREDNISolone SOD SUCC 40 MG/1 ML VIAL IV SCH (20:00)
[2016-12-19] MEDS ORDERED: LACTOBACILLUS ACIDOPHILUS TAB PO SCH (21:00)
[2016-12-20] MEDS ORDERED: PHARMACY ORDERED LAB ONE (09:45)
[2016-12-21] MEDS ORDERED: PHARMACY ORDERED LAB ONE (05:45)
[2016-12-24] MEDS ORDERED: Vancomycin Consult Pharmacy 1 EA OTHER SCH (18:45)
== END 2016-12-19 13:34 | disposition left against medical advice (07) | DRG 280 ==
LOC: NEPC 22:33 → INTOOBSV 12-18 03:29 → NEDA 12-18 03:29 → NEPHCDU 12-18 05:14 → OBSVTOIN 12-19 10:08
PROVIDERS: ADMIT Hospitalist; ATTEND Hospitalist
DX: I21.4 Non-ST elevation (NSTEMI) myocardial infarction (principal); J15.9 Unspecified bacterial pneumonia; I42.7 Cardiomyopathy due to drug and external agent; R78.81 Bacteremia; L02.415 Cutaneous abscess of right lower limb; J44.0 Chronic obstructive pulmonary disease with (acute) lower respiratory infection; L02.416 Cutaneous abscess of left lower limb; J44.1 Chronic obstructive pulmonary disease with (acute) exacerbation; L02.414 Cutaneous abscess of left upper limb; L02.413 Cutaneous abscess of right upper limb; L03.116 Cellulitis of left lower limb; L03.115 Cellulitis of right lower limb; L03.114 Cellulitis of left upper limb; L03.113 Cellulitis of right upper limb; L97.929 Non-pressure chronic ulcer of unspecified part of left lower leg with unspecified severity; L97.919 Non-pressure chronic ulcer of unspecified part of right lower leg with unspecified severity; D50.9 Iron deficiency anemia, unspecified; F14.10 Cocaine abuse, uncomplicated; F17.210 Nicotine dependence, cigarettes, uncomplicated; E78.5 Hyperlipidemia, unspecified; G89.4 Chronic pain syndrome; G62.9 Polyneuropathy, unspecified; L98.499 Non-pressure chronic ulcer of skin of other sites with unspecified severity; B96.89 Other specified bacterial agents as the cause of diseases classified elsewhere; Z86.73 Personal history of transient ischemic attack (TIA), and cerebral infarction without residual deficits; Z59.0 Homelessness; Z23 Encounter for immunization; Z88.0 Allergy status to penicillin
CPT/HCPCS: 71010; 71275; 76937; 80048; 80053; 80307; 81001; 82550; 82948; 83735; 83880; 84484; 85025; 86403; 87040; 87070; 87077; 87147; 87186; 87205; 87449; 90732; 93005; 94640; C9113; G8987-GP; G8988-GP; G8996-GN; G8997-GN; G8998-GN; J1650; J2930; J3370; J7040; J7050; Q9967

== ENCOUNTER 2016-12-21 19:56 | Inpatient (IN) | payer MEDICARE, MEDICAID ==
[2016-12-21] VITALS (11 sets, daily range): BP systolic 104–137; BP diastolic 58–73; PULSE 63–91; RESP 12–20; TEMP 98.3; O2SAT 99–100
[~2016-12-21 19:56] MED LIST changes: +DILA4TAB2 PO; -REME15TA PO; +SUBO8MIS SL
[2016-12-21] MEDS ORDERED: NITROGLYCERIN 0.4 MG SL 25 TABS/BTL SL STA (21:51)
[2016-12-21] MEDS ORDERED: ASPIRIN 81 MG CHEW TAB PO STA (21:51)
[2016-12-21] MEDS ORDERED: SODIUM CHLOR 0.9% 1000 ML INJ 1,000 ML IV ONE (21:51)
[2016-12-21] MEDS ORDERED: SODIUM CHLORIDE 0.9% FLUSH 10 ML FLUSH IVF PRN (22:00)
[2016-12-21] MEDS ORDERED: SODIUM CHLORID 0.9% 500 ML INJ 500 ML IV ONE (22:00)
[2016-12-21] MEDS ORDERED: AZTREONAM INJ 2,000 MG in SODIUM CHLORIDE 0.9% INJ 100 ML IV STA (22:03)
[2016-12-21] MEDS ORDERED: metroNIDAZOLE 500 MG INJ 100 ML IV STA (22:03)
[2016-12-21] MEDS ORDERED: VANCOMYCIN INJ 1,000 MG in SODIUM CHLOR 0.9% 250 ML INJ 250 ML IV STA (22:03)
[2016-12-21 22:15] LABS: I-STAT POTASSIUM 4.7 MMOL/L (3.5-4.9); I-STAT SODIUM 134 MMOL/L (138-146)
[2016-12-21 22:19] LABS: AUTOMATED NEUTROPHIL # 9.5 TH/MM3 (1.8-7.7); BASOPHIL # 0.2 TH/MM3 (0-0.2); BASOPHIL % 1.1 % (0.0-2.0); EOSINOPHIL # 0.2 TH/MM3 (0-0.4); EOSINOPHIL % 1.3 % (0.0-4.0); HEMATOCRIT 40.1 % (39.0-51.0); HEMO FLAGS DIFF FINAL; LYMPH % 19.4 % (9.0-44.0); LYMPHOCYTE # 2.6 TH/MM3 (1.0-4.8); MEAN CELL VOLUME 80.5 FL (80.0-100.0); MEAN CORPUSCULAR HEMOGLOBIN 25.2 PG (27.0-34.0); MEAN CORPUSCULAR HGB CONC 31.2 % (32.0-36.0); MONO % 6.4 % (0.0-8.0); NEUT % 71.8 % (16.0-70.0); PLATELET COUNT 305 TH/MM3 (150-450); RED BLOOD COUNT 4.98 MIL/MM3 (4.50-5.90); RED CELL DISTRIBUTION WIDTH 15.7 % (11.6-17.2); WHITE BLOOD COUNT 13.3 TH/MM3 (4.0-11.0)
[2016-12-21] MEDS ORDERED: HEPARIN SODIUM - IV 10,000 UNITS/10 ML VIAL ONE (22:22)
--- NOTE | 2016-12-21 22:22 | RADRPT ---
EXAM DATE/TIME: 12/21/2016 22:03 [facility] COMPARISON: CHEST SINGLE AP, December 17, 2016, 23:33. INDICATIONS : Chest pain. MEDICAL HISTORY : Hypertension. Hepatitis C. Cardiovascular disease. SURGICAL HISTORY : None. ENCOUNTER: Initial ACUITY: 1 day PAIN SCORE: 5/10 LOCATION: Bilateral chest FINDINGS: A single view of the chest demonstrates the lungs to be symmetrically aerated with improving intersti tial prominence when compared to the prior. No confluent infiltrate or effusion. Heart size is normal . Mild dextroscoliosis of the dorsal spine. Anterior fixation of the lower cervical spine. CONCLUSION: 1. Interstitial prominence seen previously shows interval improvement. 2. No confluent infiltrate. Walker Neri MD on December 21, 2016 at 22:19 Board Certified Radiologist. This report was verified electronically.
[2016-12-21 22:27] LABS: APTT (PATIENT) 26.6 SEC (24.3-30.1); PROTHROMBIN TIME - PATIENT 11.2 SEC (9.8-11.6)
[2016-12-21] MEDS ORDERED: NITROGLYCERIN-D5W 50 MG/250 ML 250 ML IV PRN (22:30)
[2016-12-21 22:42] LABS: ALT (GPT) 30 U/L (12-78); ANION GAP 9 MEQ/L (5-15); AST (GOT) 56 U/L (15-37); BICARBONATE 24.7 MEQ/L (21.0-32.0); BLOOD UREA NITROGEN 19 MG/DL (7-18); CHLORIDE 101 MEQ/L (98-107); GLOMERULAR FILTRATION RATE 90 ML/MIN (>89); MAGNESIUM 2.2 MG/DL (1.5-2.5); POTASSIUM 4.2 MEQ/L (3.5-5.1); SODIUM (NA) 135 MEQ/L (136-145)
[2016-12-21] MEDS ORDERED: SODIUM CHLORIDE 0.9% FLUSH 10 ML FLUSH IV FLUSH PRN (22:45)
[2016-12-21] MEDS ORDERED: NALOXONE HCL 0.4 MG/ML AMP IV PRN (22:45)
[2016-12-21] MEDS ORDERED: Vancomycin Consult Pharmacy 1 EA OTHER SCH (22:45)
[2016-12-21 22:49] LABS: ALKALINE PHOSPHATASE 131 U/L (45-117); CREATINE KINASE 123 U/L (39-308); TOTAL BILIRUBIN ADULT 0.5 MG/DL (0.2-1.0)
[2016-12-21] MEDS ORDERED: ATOR10TA15 PO (22:50)
[2016-12-21] MEDS ORDERED: CLON0.1T PO (22:50)
[2016-12-21] MEDS ORDERED: LEVOFLOXACIN 750 MG PREMIX INJ 150 ML IV SCH (23:00)
[2016-12-21 23:17] LABS: CKMB 3.8 NG/ML (0.5-3.6)
--- NOTE | 2016-12-21 23:33 | MB ---
cc: ARGELIA CASTELAN M.D. DATE OF CONSULTATION 12/21/16 REASON FOR CONSULTATION Evaluation of chest pain. HISTORY OF PRESENT ILLNESS Bay Rosenberg is a complicated 61-year-old man admitted to the hospital with chest pain, but also has enterococcus faecalis growing in blood from four days ago which has been untreated because he left AMA and also complicated by ongoing and recent cocaine use. The patient has a longstanding history of drug abuse including cocaine. He also smokes. Apparently has had an IA in the past and possibly a stroke in the past. He was just admitted to the hospital earlier on December 18. He had blood cultures done December 17 showing enterococcus faecalis and he has wound cultures in his legs going worse. He was seen by Dr. Donohue of cardiology. The patient decided to leave the hospital against medical advice two days ago. At that time, he had evidence for a non-ST segment elevation myocardial infarction with an EKG showing evidence for an anteroseptal IA age indeterminate and troponin levels that were clearly elevated with a troponin level of 1.12. His toxicology screen was positive for cocaine. He initially denied any recent drug use. After confronted with tox screen result, he does admit to cocaine use. He says, however, he has not used intravenous drugs for a while, but I cannot tell how reliable the history is. His daughter is here in the ER with him and her history is that he has been a drug abuser since she was [age] years old. The patient says he was having chest pain for the past two days but somewhat intermittent. It is pressure-like, sounds like ischemia. It does not radiate. It is a little worse with a deep breath. PAST MEDICAL HISTORY 1. History of CVA 2. Dyslipidemia, 3. COPD, 4. Hepatitis C ALLERGIES PENICILLIN G SOCIAL HISTORY Smoking for the last 20 years. Drug use as described above. PHYSICAL EXAMINATION GENERAL: Chronically ill appearing white male. VITAL SIGNS: Charted. He is tachycardic initially HEENT: Exam notable for poor dentition. NECK: Notable for right carotid bruit. CHEST: Some scattered rhonchi. CARDIAC: S1-S2 regular rate and rhythm. I do not appreciate murmurs, gallops. ABDOMEN: Soft. EXTREMITIES: Multiple areas of what looks like skin abscesses. Pulses are symmetrical and equal. NEUROLOGIC: He is alert and oriented. LABORATORY DATA Pending at this time. His creatinine was 0.83 on the fifth. Hematocrit was 32.0 on the fifth with hematocrit of 27.7 on the third. Tox screen in December 18 was positive for cocaine in the urine. CARDIOLOGY STUDIES EKG shows evidence for anteroseptal IA, age indeterminate. There is clear Q-waves. These appear old. He had those on his tracing from earlier. He had a slight degree of ST elevation anteroseptal in his prior EKG and it is more enhanced now. IMPRESSION This is a complicated 61-year-old man with a history of IV drug abuse, cocaine use that sounds fairly recent, positive blood cultures for enterococcus faecalis and positive skin cultures for MRSA. He has not had adequate treatment for the bacteremia. He comes in now with intermittent chest pain for the past two days. His EKG looks worse. RECOMMENDATIONS My first thought would be to take him directly to the animal laboratory helper with cath and possible intervention, but the positive blood cultures I think makes this unsafe. Due to the fact that he had similar Q-waves in the prior tracing, I think we should get him treated for his infection first and try to manage his chest pain medically for the time being. I have spoken to Dr. Holcomb in the ER who agrees with this approach. We are going to initiate IV heparin and IV nitro. Put him in Intensive Care Unit so that nitro can be titrated easily. He probably will need a cardiac cath later during this admission. He need an ID consult, might well need a transesophageal echo for an elevated risk of endocarditis. Further therapy to be determined. MD MAREN Wilson/ /10:44 PM /11:14 PM
--- NOTE | 2016-12-21 23:49 | PD ---
HPI Chief Complaint: Respiratory Symptoms Time Seen by Provider: 21:50 Travel History International Travel<30 days: No Contact w/Intl Traveler<30days: No Traveled to known affect area: No History of Present Illness HPI 61-year-old male presents with chest pain has been present for the past couple of days. He states he recently was in the hospital before he left against advice for a bad infection in his lungs that he was on vancomycin for. He states now he will stay and get workup as needed. He denies other complaints. He again denies IV drug abuse. He denies cocaine use since his last visit. He states he hasn't had an aspirin. Quality of pain is sharp. Severity is 7 out of 10. Pain is worse with movement. He is a poor historian [facility] Past Medical History Narrative Medical By records Hx Anticoagulant Therapy: Yes (PLAVIX) Arthritis: No Asthma: No Autoimmune Disease: No Blood Disorders: No Anxiety: No Depression: No Heart Rhythm Problems: Yes Cancer: No Cardiovascular Problems: Yes (CHEST PAIN WITH NEW ST ELEVATION (12/21/16)) High Cholesterol: No Chemotherapy: No Chest Pain: Yes Congestive Heart Failure: No Cirrhosis: Yes COPD: No Cerebrovascular Accident: Yes Diabetes: No Diminished Hearing: No Endocrine: No Gastrointestinal Disorders: Yes GERD: No Glaucoma: No Genitourinary: No Headaches: Yes Hepatitis: Yes (HEP-C) Hiatal Hernia: No Immune Disorder: No Implanted Vascular Access Dvce: No Musculoskeletal: Yes (WEAK IN LEGS) Neurologic: Yes (PAIN IN NECK REGION) Psychiatric: No Reproductive: No Respiratory: Yes (HE IS SOB WITH EXERTION; CURRENTLY HAS VIRAL PNA (12/21/16)) Integumentary: Yes (easily compromised) Immunizations Current: No Migraines: Yes Pneumonia: Yes (VIRAL PNA) Radiation Therapy: No Seizures: No Sickle Cell Disease: No Sleep Apnea: No Thyroid Disease: No Ulcer: No Past Surgical History Narrative Surgical By records Appendectomy: Yes Body Medical Devices: METAL , SCREWS IN C5, C6 Cardiac Surgery: No Cholecystectomy: Yes Ear Surgery: No Endocrine Surgery: No Eye Surgery: Yes Genitourinary Surgery: No Neurologic Surgery: Yes (c5-c6 discectomy and plating ) Oral Surgery: No Pacemaker: No Thoracic Surgery: No Other Surgery: Yes (APPENDIX OUT. CERVICAL 3456 OLAF AND FUSION) Social History Narrative Social History By records Alcohol Use: No Tobacco Use: Yes (4-5 CIGARS A DAY ) Substance Use: Yes (COCAINE BUT DENIES ANY RECENT USE) Allergies-Medications (Allergen,Severity, Reaction): Coded Allergies: penicillin G (Unverified Allergy, Intermediate, SOB, RASH, 12/21/16) Penicillins (Verified Allergy, Unknown, 12/21/16) *MDRO Multi-Drug Resistant Organism (Verified Adverse Reaction, Unknown, ) MRSA (wound) - 12/20/2012; (leg) - 11/01/15 Reported Meds & Prescriptions Reported Meds & Active Scripts Active Reported Atorvastatin (Atorvastatin Calcium) 10 Mg Tab 10 Mg PO HS Clonidine (Clonidine HCl) 0.1 Mg Tab 0.1 Mg PO BID Suboxone Sublingual Film (Buprenorphine-Naloxone Sublingual Film) 8-2 Mg Film 1 Film SL Unique ID number required: Dilaudid (Hydromorphone HCl) 4 Mg Tab 4 Mg PO Q6H PRN Plavix (Clopidogrel Bisulfate) 75 Mg Tab 75 Mg PO DAILY Gabapentin 100 Mg Cap 100 Mg PO TID Review of Systems ROS Limitations: Poor Historian Except as stated in HPI: all other systems reviewed are Neg Physical Exam Exam Limitations: Poor Historian Narrative GENERAL: Well-nourished, well-developed patient. SKIN: Warm and dry. Multiple small skin lesions noted HEAD: Normocephalic and atraumatic. EYES: No injection or drainage. ENT: No nasal drainage noted. NECK: Supple, trachea midline. CARDIOVASCULAR: Regular rate and rhythm RESPIRATORY: Breath sounds equal bilaterally at apices. No accessory muscle use. GASTROINTESTINAL: Abdomen soft, non-tender, nondistended. EXTREMITIES: No edema. NEUROLOGICAL: Awake and alert. Motor and sensory grossly within normal limits. Normal speech. Data Data Last Documented VS Vital Signs Date Time Temp Pulse Resp B/P (MAP) Pulse Ox O2 Delivery O2 Flow Rate FiO2 12/21/16 22:30 78 12 112/65 (81) 100 Nasal Cannula 2.00 12/21/16 21:52 21 12/21/16 20:00 98.3 Orders Orders Troponin I (12/21/16 21:51) Ckmb (Isoenzyme) Profile (12/21/16 21:51) Complete Blood Count With Diff (12/21/16 21:51) I-Stat Profile (12/21/16 21:51) I-Stat Creatinine (12/21/16 21:51) Calcium (12/21/16 21:51) Magnesium (Mg) (12/21/16 21:51) Prothrombin Time / Inr (Pt) (12/21/16 21:51) Act Partial Throm Time (Ptt) (12/21/16 21:51) B-Type Natriuretic Peptide (12/21/16 21:51) Chest, Single Ap (12/21/16 21:51) Electrocardiogram (12/21/16 21:51) Oxygen Administration (12/21/16 21:51) Iv Access Insert/Monitor (12/21/16 21:51) Oximetry (12/21/16 21:51) Sodium Chlor 0.9% 1000 Ml Inj (Ns 1000 M (12/21/16 21:51) Sodium Chloride 0.9% Flush (Ns Flush) (12/21/16 22:00) Aspirin Chew (Aspirin Chew) (12/21/16 21:51) Nitroglycerin Sl (Nitrostat Sl) (12/21/16 21:51) Comprehensive Metabolic Panel (12/21/16 21:51) Lactic Acid Sepsis Protocol (12/21/16 21:51) Urinalysis - C+S If Indicated (12/21/16 21:51) Blood Culture (12/21/16 21:51) Sodium Chlorid 0.9% 500 Ml Inj (Ns 500 M (12/21/16 22:00) Vancomycin Inj (Vancomycin Inj) (12/21/16 22:03) Aztreonam Inj (Azactam Inj) (12/21/16 22:03) Metronidazole 500 Mg Inj (Flagyl 500 Mg (12/21/16 22:03) Nitroglycerin-D5w 50 Mg/250 Ml (Nitrogly (12/21/16 22:30) Heparin Inj (Heparin Inj) (12/21/16 22:22) Admit Order (Ed Use Only) (12/21/16 22:24) CKMB (12/21/16 22:00) CKMB% (12/21/16 22:00) Labs Laboratory Tests Test 12/21/16 22:00 White Blood Count 13.3 TH/MM3 Red Blood Count 4.98 MIL/MM3 Hemoglobin 12.5 GM/DL Bedside Hemoglobin 13.9 G/DL Hematocrit 40.1 % Bedside Hematocrit 41.0 % Mean Corpuscular Volume 80.5 FL Mean Corpuscular Hemoglobin 25.2 PG Mean Corpuscular Hemoglobin Concent 31.2 % Red Cell Distribution Width 15.7 % Platelet Count 305 TH/MM3 Mean Platelet Volume 7.3 FL Neutrophils (%) (Auto) 71.8 % Lymphocytes (%) (Auto) 19.4 % Monocytes (%) (Auto) 6.4 % Eosinophils (%) (Auto) 1.3 % Basophils (%) (Auto) 1.1 % Neutrophils # (Auto) 9.5 TH/MM3 Lymphocytes # (Auto) 2.6 TH/MM3 Monocytes # (Auto) 0.9 TH/MM3 Eosinophils # (Auto) 0.2 TH/MM3 Basophils # (Auto) 0.2 TH/MM3 CBC Comment DIFF FINAL Differential Comment Prothrombin Time 11.2 SEC Prothromb Time International Ratio 1.0 RATIO Activated Partial Thromboplast Time 26.6 SEC Bedside Sodium 134 MMOL/L Blood Urea Nitrogen 19 MG/DL Creatinine 0.86 MG/DL Random Glucose 84 MG/DL Total Protein 7.8 GM/DL Albumin 3.3 GM/DL Calcium Level 8.0 MG/DL Magnesium Level 2.2 MG/DL Alkaline Phosphatase 131 U/L Aspartate Amino Transf (AST/SGOT) 56 U/L Alanine Aminotransferase (ALT/SGPT) 30 U/L Total Bilirubin 0.5 MG/DL Sodium Level 135 MEQ/L Potassium Level 4.2 MEQ/L Chloride Level 101 MEQ/L Carbon Dioxide Level 24.7 MEQ/L Bedside Potassium 4.7 MMOL/L Bedside Chloride 104 MMOL/L Anion Gap 9 MEQ/L Bedside Blood Urea Nitrogen 25 MG/DL Bedside Creatinine 0.8 MG/DL Estimat Glomerular Filtration Rate 90 ML/MIN Bedside Glucose 85 MG/DL Lactic Acid Level 2.3 mmol/L Total Creatine Kinase 123 U/L Creatine Kinase MB 3.8 NG/ML Troponin I 0.25 NG/ML B-Type Natriuretic Peptide 1267 PG/ML MDM Medical Decision Making Medical Screen Exam Complete: Yes Emergency Medical Condition: Yes Medical Record Reviewed: Yes (past history confirm, recent admission noted with positive blood cultures) Interpretation(s) CBC & BMP Diagram 12/21/16 22:00 Total Protein 7.8 #, Albumin 3.3 L, Calcium Level 8.0 L, Magnesium Level 2.2, Alkaline Phosphatase 131 H, Aspartate Amino Transf (AST/SGOT) 56 H, Alanine Aminotransferase (ALT/SGPT) 30, Total Bilirubin 0.5 Last 24 hours Impressions Chest X-Ray 12/21/162150 Signed Impressions: Service Date/Time: December 22:03 - CONCLUSION: 1. Interstitial prominence seen previously shows interval improvement. 2. No confluent infiltrate. Walker Neri MD EKG is sinus rhythm at [address] elevation in V3 V4 with T wave inversion inferior leads I stats reviewed Differential Diagnosis [place], sepsis, endocarditis, gastritis Narrative Course EKG shows ST segment elevation [place] and STEMI alert was called based on EKG and active pain when compared to prior. On review of records patient recently here with sepsis and positive blood cultures. This puts him at high risk for infection with stent placement. After Dr. Paredes saw the patient it was agreed upon that stent placement will be held and he will be medically treated with antibiotics and fluids and nitroglycerin as tolerated. Patient updated and agrees to plan of care. Heparin will be ordered. On reassessment patient had his blood pressure dropped with nitroglycerin so this will be held for now and he'll be closely monitored. Critical Care Narrative Aggregate critical care time was 35 minutes. Time to perform other separately billable procedures was not included in the critical care time. My time did not include minutes spent treating any other patients simultaneously or on activities that did not directly contribute to the patient's treatment. The services I provided to this patient were to treat and/or prevent clinically significant deterioration that could result in: , shock I provided critical care services requiring my management, as noted below: Chart data review, documentation time, medication orders and management, vital sign assessments/reviewing monitor data, ordering and reviewing lab tests, ordering and interpreting/reviewing x-rays and diagnostic studies, care of the patient and discussion of the patient with the admitting physicians. Sepsis Criteria SIRS Criteria (2 or more): WBC > 37895, < 4000 or > 10% bands Sepsis Criteria (SIRS+source): Infect source susp/known Severe Sepsis (+one): Lactate >2 Criteria Outcome: Meets severe sepsis criteria Physician Communication Physician Communication dr paredes will come and see the patient dr paredes states to admit to medicine given recent infection and will medically treat for now dr yadav agrees to admit and updated and wants cic for now Diagnosis Primary Impression: STEMI (ST elevation myocardial infarction) Qualified Codes: I21.3 - ST elevation (STEMI) myocardial infarction of unspecified site Additional Impression: Sepsis Qualified Codes: A41.9 - Sepsis, unspecified organism Admitting Information Admitting Physician Requests: it Shasha Holcomb MD Dec 21, 2016 23:49
[2016-12-22] VITALS (10 sets, daily range): BP systolic 91–115; BP diastolic 52–74; PULSE 58–88; RESP 12–20; TEMP 97.3–98.8; O2SAT 96–100
[2016-12-22 00:09] LABS: LACTIC ACID GHOST NOT REPORTABLE
[2016-12-22 02:16] LABS: BLOOD, URINE TRACE (NEG); COMMENT (UR) CATH-CULT NOT IND; CULTURE IF INDICATED CATH CULTURE NOT IND; GLUCOSE,URINE NEG (NEG); KETONE, URINE NEG (NEG); MUCUS URINE FEW /lpf (OCC); NITRITE,URINE NEG (NEG); URINE COLOR LIGHT-YELLOW (YELLW/STRAW)
[2016-12-22] MEDS ORDERED: ACETAMINOPHEN 325 MG TAB PO PRN (07:30)
[2016-12-22] MEDS ORDERED: ALUMINUM/MAGNESIUM/SIMETH 30 ML CUP PO PRN (07:30)
[2016-12-22] MEDS ORDERED: DOCUSATE SODIUM 50 MG/SENNA 8.6 MG TAB PO PRN (07:30)
[2016-12-22] MEDS ORDERED: ONDANSETRON HCL 4 MG/2 ML VIAL IV PRN (07:30)
--- NOTE | 2016-12-22 10:01 | HHI.HP ---
HPI Service [facility] Hospitalists Primary Care Physician Meron Guerra MD Admission Diagnosis STEMI Diagnoses: (1) Non-ST elevation [place] (NSTEMI) (2) Gram-positive cocci bacteremia (3) Sepsis (4) Bacterial skin infection of leg (5) Hx IVDA Chief Complaint: Chest pressure Travel History International Travel<30 Days: No Contact w/Intl Traveler <30 Da: No Traveled to Known Affected Are: No Sepsis Criteria SIRS Criteria (2 or more): Heart rate over 90, WBC > 26699, < 4000 or > 10% bands Sepsis Criteria (SIRS+source): Infect source susp/known Severe Sepsis (+one): Lactate >2 Criteria Outcome: Meets severe sepsis criteria History of Present Illness 61-year-old male with a history of CAD, cocaine abuse, COPD who was recently admitted to [place] on 12/17/16 for non-ST elevation [place] as well as severe sepsis due to pulmonary infiltrates, however secondary to restrictive disease skin infections patient was treated medically with consultation to infectious disease specialist secondary to bacteremia. He was started on Lovenox subcutaneous every 12 hours for non-ST elevation [place] and continue with IV vancomycin, however on 12/19/16 patient signed AMA. Now return to the hospital with severe chest pressure rated 6/10 in intensity described as intermittent over the past 2 days without any radiation. On admission last night a STEMI alert was called and patient was seen by cardiology. During his previous admission, patient was positive for cocaine however currently denies any since leaving [place]. He denies any GI bleed. Currently reports some improvement of chest pressure and pain Review of Systems Except as stated in HPI: all other systems reviewed are Neg Past Family Social History Past Medical History History of CVA Dyslipidemia COPD Hepatitis C IVDU Recent diagnosis of bacteremia Past Surgical History APPENDIX OUT. CERVICAL 3456 OLAF AND FUSION Reported Medications Atorvastatin (Atorvastatin Calcium) 10 Mg Tab 10 Mg PO HS Clonidine (Clonidine HCl) 0.1 Mg Tab 0.1 Mg PO BID Suboxone Sublingual Film (Buprenorphine-Naloxone Sublingual Film) 8-2 Mg Film 1 Film SL Unique ID number required: Dilaudid (Hydromorphone HCl) 4 Mg Tab 4 Mg PO Q6H PRN Plavix (Clopidogrel Bisulfate) 75 Mg Tab 75 Mg PO DAILY Gabapentin 100 Mg Cap 100 Mg PO TID Allergies: Coded Allergies: penicillin G (Unverified Allergy, Intermediate, SOB, RASH, 12/21/16) Penicillins (Verified Allergy, Unknown, 12/21/16) *MDRO Multi-Drug Resistant Organism (Verified Adverse Reaction, Unknown, ) MRSA (wound) - 12/20/2012; (leg) - 11/01/15 Family History Coronary artery disease; Dad with massive heart attack at a younger age Social History Uses cocaine, Smokes 4-6 cigarettes per day, denies alcohol Physical Exam Vital Signs Vital Signs Date Time Temp Pulse Resp B/P (MAP) Pulse Ox O2 Delivery O2 Flow Rate FiO2 12/22/16 08:53 97.4 88 18 115/72 (86) 96 12/22/16 03:56 98.8 75 19 102/63 (76) 98 12/22/16 02:30 59 12/22/16 02:30 98.7 59 18 101/65 (77) 96 12/22/16 01:23 58 12 100/56 (71) 100 Nasal Cannula 2.00 12/22/16 01:21 58 14 105/62 (76) 100 2.00 12/22/16 00:30 64 15 97/56 (70) 100 Nasal Cannula 2.00 12/22/16 00:00 62 16 104/56 (72) 100 Nasal Cannula 2.00 12/21/16 23:55 63 12 105/58 (74) 100 Nasal Cannula 2.00 12/21/16 23:30 66 14 120/65 (83) 100 Nasal Cannula 2.00 12/21/16 23:00 78 16 104/65 (78) 100 Nasal Cannula 2.00 12/21/16 22:45 68 12 116/68 (84) 100 Nasal Cannula 2.00 12/21/16 22:36 77 16 111/64 (80) 100 Nasal Cannula 2.00 12/21/16 22:30 78 12 112/65 (81) 100 Nasal Cannula 2.00 12/21/16 22:25 77 16 104/60 (75) 100 Nasal Cannula 2.00 12/21/16 22:20 80 19 128/71 (90) 100 Nasal Cannula 2.00 12/21/16 22:20 100 Nasal Cannula 2.00 12/21/16 21:52 100 12/21/16 21:52 100 21 12/21/16 21:46 90 22 100 Room Air 12/21/16 21:40 90 19 137/73 (94) 99 Room Air 12/21/16 20:00 98.3 91 20 113/65 (81) 99 Room Air Physical Exam GENERAL: This is a well-nourished, well-developed patient, in no apparent distress. SKIN: Multiple skin rashes ecchymoses on both upper and lower extremities HEAD: Atraumatic. Normocephalic. No temporal or scalp tenderness. EYES: Pupils equal round and reactive. Extraocular motions intact. No scleral icterus. No injection or drainage. ENT: Nose without bleeding, purulent drainage or septal hematoma. Throat without erythema, tonsillar hypertrophy or exudate. Uvula midline. Airway patent. NECK: Trachea midline. No JVD or lymphadenopathy. Supple, nontender, no meningeal signs. CARDIOVASCULAR: Regular rate and rhythm without murmurs, gallops, or rubs. RESPIRATORY: Clear to auscultation. Breath sounds equal bilaterally. No wheezes , rales, or rhonchi. GASTROINTESTINAL: Abdomen soft, non-tender, nondistended. No hepato-splenomegaly , or palpable masses. No guarding. MUSCULOSKELETAL: Extremities without clubbing, cyanosis, or edema. No joint tenderness, effusion, or edema noted. No calf tenderness. Negative Homans sign bilaterally. NEUROLOGICAL: Awake and alert. Cranial nerves II through XII intact. Motor and sensory grossly within normal limits. Five out of 5 muscle strength in all muscle groups. Normal speech. Laboratory Laboratory Tests Test 12/21/16 22:00 12/22/16 00:24 12/22/16 01:50 White Blood Count 13.3 Red Blood Count 4.98 Hemoglobin 12.5 Bedside Hemoglobin 13.9 Hematocrit 40.1 Bedside Hematocrit 41.0 Mean Corpuscular Volume 80.5 Mean Corpuscular Hemoglobin 25.2 Mean Corpuscular Hemoglobin Concent 31.2 Red Cell Distribution Width 15.7 Platelet Count 305 Mean Platelet Volume 7.3 Neutrophils (%) (Auto) 71.8 Lymphocytes (%) (Auto) 19.4 Monocytes (%) (Auto) 6.4 Eosinophils (%) (Auto) 1.3 Basophils (%) (Auto) 1.1 Neutrophils # (Auto) 9.5 Lymphocytes # (Auto) 2.6 Monocytes # (Auto) 0.9 Eosinophils # (Auto) 0.2 Basophils # (Auto) 0.2 CBC Comment DIFF FINAL Differential Comment Prothrombin Time 11.2 Prothromb Time International Ratio 1.0 Activated Partial Thromboplast Time 26.6 Bedside Sodium 134 Blood Urea Nitrogen 19 Creatinine 0.86 Random Glucose 84 Total Protein 7.8 Albumin 3.3 Calcium Level 8.0 Magnesium Level 2.2 Alkaline Phosphatase 131 Aspartate Amino Transf (AST/SGOT) 56 Alanine Aminotransferase (ALT/SGPT) 30 Total Bilirubin 0.5 Sodium Level 135 Potassium Level 4.2 Chloride Level 101 Carbon Dioxide Level 24.7 Bedside Potassium 4.7 Bedside Chloride 104 Anion Gap 9 Bedside Blood Urea Nitrogen 25 Bedside Creatinine 0.8 Estimat Glomerular Filtration Rate 90 Bedside Glucose 85 Lactic Acid Level 2.3 1.3 Total Creatine Kinase 123 Creatine Kinase MB 3.8 Troponin I 0.25 B-Type Natriuretic Peptide 1267 Urine Color LIGHT-YELLOW Urine Turbidity CLEAR Urine pH 5.0 Urine Specific [place] 1.004 Urine Protein NEG Urine Glucose (UA) NEG Urine Ketones NEG Urine Occult Blood TRACE Urine Nitrite NEG Urine Bilirubin NEG Urine Urobilinogen LESS THAN 2.0 Urine Leukocyte Esterase NEG Urine RBC LESS THAN 1 Urine WBC 1 Urine Mucus FEW Microscopic Urinalysis Comment CATH-CULT NOT IND Date/Time Source Procedure Growth Status 12/22/16 01:55 Blood Peripheral Aerobic Blood Culture Pending Received 12/22/16 01:55 Blood Peripheral Anaerobic Blood Culture Pending Received Result Diagram: 12/21/16219912/21/162199 Imaging Last Impressions Chest X-Ray 12/21/162150 Signed Impressions: Service Date/Time: December 22:03 - CONCLUSION: 1. Interstitial prominence seen previously shows interval improvement. 2. No confluent infiltrate. Walker Neri MD Septic Shock Reassessment Heart: Regular rate and rhythm Lungs: Clear Skin: Warm Capillary Refill: >2 seconds Caprini VTE Risk Assessment Caprini VTE Risk Assessment: Mod/High Risk (score >= 2) Caprini Risk Assessment Model Point Value = 1 Point Value = 2 Point Value = 3 Point Value = 5 Age 41-60 Minor surgery BMI > 25 kg/m2 Swollen legs Varicose veins or History of unexplained or recurrent spontaneous Oral contraceptives or hormone replacement Sepsis (< 1 month) Serious lung disease, including pneumonia (< 1 month) Abnormal pulmonary function Acute myocardial infarction Congestive heart failure (< 1 month) History of inflammatory bowel disease Medical patient at bed rest Age 61-74 Arthroscopic surgery Major open surgery (> 45 min) Laparoscopic surgery (> 45 min) Malignancy Confined to bed (> 72 hours) Immobilizing plaster cast Central venous access Age >= 75 History of VTE Family history of VTE Factor V Leiden Prothrombin [id number] Lupus anticoagulant Anticardiolipin antibodies Elevated serum homocysteine Heparin-induced thrombocytopenia Other congenital or acquired thrombophilia Stroke (< 1 month) Elective arthroplasty Hip, pelvis, or leg fracture Acute spinal cord injury (< 1 month) Prophylaxis Regimen Total Risk Factor Score Risk Level Prophylaxis Regimen 0-1 Low Early ambulation 2 Moderate Order ONE of the following: *Sequential Compression Device (SCD) *Heparin 5000 units SQ BID 3-4 Higher Order ONE of the following medications: *Heparin 5000 units SQ TID *Enoxaparin/Lovenox 40 mg SQ daily (WT < 150 kg, CrCl > 30 mL/min) *Enoxaparin/Lovenox 30 mg SQ daily (WT < 150 kg, CrCl > 10-29 mL/min) *Enoxaparin/Lovenox 30 mg SQ BID (WT < 150 kg, CrCl > 30 mL/min) AND/OR *Sequential Compression Device (SCD) 5 or more Highest Order ONE of the following medications: *Heparin 5000 units SQ TID (Preferred with Epidurals) *Enoxaparin/Lovenox 40 mg SQ daily (WT < 150 kg, CrCl > 30 mL/min) *Enoxaparin/Lovenox 30 mg SQ daily (WT < 150 kg, CrCl > 10-29 mL/min) *Enoxaparin/Lovenox 30 mg SQ BID (WT < 150 kg, CrCl > 30 mL/min) AND *Sequential Compression Device (SCD) Assessment and Plan Problem List: (1) Non-ST elevation [place] (NSTEMI) ICD Code: I21.4 - Non-ST elevation (NSTEMI) myocardial infarction (2) Gram-positive cocci bacteremia ICD Code: R78.81 - Bacteremia (3) Bacterial skin infection of leg ICD Code: L03.119 - Cellulitis of unspecified part of limb (4) Community acquired bacterial pneumonia ICD Code: J15.9 - Unspecified bacterial pneumonia (5) Hx IVDA Status: Chronic Assessment and Plan 61-year-old man with Non-ST elevation [place] Management per cardiology However due to current infections including recent bacteremia and lower extremity abscesses/cellulitis, defer left heart catheterization until patient is stable medically Continue with heparin and nitroglycerin drips, however hold it anti-KIRSTIN completed Plan for KIRSTIN to rule out endocarditis as patient with history of IVDU and recent bacteremia Gram-positive bacteremia diagnosed 12/18/16 prior to patient signing AMA Status post Azactam, Levaquin 1 in ED Resume vancomycin pending final culture reports Consult infectious disease specialist Check 2-D echo and Severe sepsis: Heart rate over 90, WBC > 95004, < 4000 or > 10% bands; Lactate > 2, Infect source susp/known(bacteremia, pulmonary infiltrate, leg infections/ abscesses) Treat with vancomycin pending cultures reports Bilateral lower extremities skin infections/abscesses Wound culture positive for MRSA Resume vancomycin IV Nicotine dependence Counseled to quit Start Nicotine patch IVDU Repeat UDS Check 2-D echo DVT prophylaxis: Heparin Code Status Full code Discussed Condition With Patient Physician Certification 2 Midnight Certification Type: Admission for Inpatient Services Order for Inpatient Services The services are ordered in accordance with Medicare regulations or non- Medicare payer requirements, as applicable. In the case of services not specified as inpatient-only, they are appropriately provided as inpatient services in accordance with the 2-midnight benchmark. Estimated LOS (days): 2 days is the estimated time the patient will need to remain in the hospital, assuming treatment plan goals are met and no additional complications. Post-Hospital Plan: Not yet determined Problem Qualifiers (1) Sepsis: Qualified Codes: A41.9 - Sepsis, unspecified organism Oracio Chaudhari MD Dec 22, 2016 10:01
--- NOTE | 2016-12-22 10:09 | PD.CARD.PN ---
Subjective Subjective Remarks Chest pain much better Objective Medications Current Medications Medications (Trade) Dose Ordered Sig/Yolanda Route Start Time Stop Time Status Last Admin (NS Flush) 2 ml UNSCH PRN IV FLUSH 12/21/16 22:45 (NS Flush) 2 ml BID IV FLUSH 12/22/16 09:00 (Narcan Inj) 0.4 mg UNSCH PRN IV 12/21/16 22:45 Pharmacy Profile Note 0 ml @ 0 mls/hr UNSCH OTHER 12/21/16 22:45 Vancomycin HCl 1250 mg/Sodium Chloride 262.5 ml @ 262.5 mls/ hr Q12H IV 12/22/16 21:00 (Tylenol) 650 mg Q4H PRN PO 12/22/16 07:30 (Zofran Inj) 4 mg Q6H PRN IV 12/22/16 07:30 (Nadine-Colace) 1 tab BID PRN PO 12/22/16 07:30 (Mag-Al Plus Susp Liq) 30 ml Q6H PRN PO 12/22/16 07:30 Vital Signs / I&O Vital Signs Date Time Temp Pulse Resp B/P (MAP) Pulse Ox O2 Delivery O2 Flow Rate FiO2 12/22/16 08:53 97.4 88 18 115/72 (86) 96 12/22/16 03:56 98.8 75 19 102/63 (76) 98 12/22/16 02:30 59 12/22/16 02:30 98.7 59 18 101/65 (77) 96 12/22/16 01:23 58 12 100/56 (71) 100 Nasal Cannula 2.00 12/22/16 01:21 58 14 105/62 (76) 100 2.00 12/22/16 00:30 64 15 97/56 (70) 100 Nasal Cannula 2.00 12/22/16 00:00 62 16 104/56 (72) 100 Nasal Cannula 2.00 12/21/16 23:55 63 12 105/58 (74) 100 Nasal Cannula 2.00 12/21/16 23:30 66 14 120/65 (83) 100 Nasal Cannula 2.00 12/21/16 23:00 78 16 104/65 (78) 100 Nasal Cannula 2.00 12/21/16 22:45 68 12 116/68 (84) 100 Nasal Cannula 2.00 12/21/16 22:36 77 16 111/64 (80) 100 Nasal Cannula 2.00 12/21/16 22:30 78 12 112/65 (81) 100 Nasal Cannula 2.00 12/21/16 22:25 77 16 104/60 (75) 100 Nasal Cannula 2.00 12/21/16 22:20 80 19 128/71 (90) 100 Nasal Cannula 2.00 12/21/16 22:20 100 Nasal Cannula 2.00 12/21/16 21:52 100 12/21/16 21:52 100 21 12/21/16 21:46 90 22 100 Room Air 12/21/16 21:40 90 19 137/73 (94) 99 Room Air 12/21/16 20:00 98.3 91 20 113/65 (81) 99 Room Air I/O 12/21/16 12/21/16 12/21/16 12/22/16 12/22/16 12/22/16 06:59 14:59 22:59 06:59 14:59 22:59 Intake Total 250 ml Output Total 500 ml Balance -250 ml Intake Oral 0 ml IV Total 250 ml Output Urine Total 500 ml Physical Exam GENERAL: Nurse things he is having opiate withdrawal. Alert, not agitated HEENT: Jugular venous pressure is normal. Poor dentition CHEST: few rhonchi CARDIAC: Regular rate and rhythm without S3 ABDOMEN: Soft, nontender, no hepatosplenomegaly. Bowel sounds present. EXTREMITIES: No clubbing, cyanosis, or edema. Skin abcesses Laboratory Laboratory Tests Test 12/21/16 22:00 12/22/16 00:24 12/22/16 01:50 White Blood Count 13.3 TH/MM3 Red Blood Count 4.98 MIL/MM3 Hemoglobin 12.5 GM/DL Bedside Hemoglobin 13.9 G/DL Hematocrit 40.1 % Bedside Hematocrit 41.0 % Mean Corpuscular Volume 80.5 FL Mean Corpuscular Hemoglobin 25.2 PG Mean Corpuscular Hemoglobin Concent 31.2 % Red Cell Distribution Width 15.7 % Platelet Count 305 TH/MM3 Mean Platelet Volume 7.3 FL Neutrophils (%) (Auto) 71.8 % Lymphocytes (%) (Auto) 19.4 % Monocytes (%) (Auto) 6.4 % Eosinophils (%) (Auto) 1.3 % Basophils (%) (Auto) 1.1 % Neutrophils # (Auto) 9.5 TH/MM3 Lymphocytes # (Auto) 2.6 TH/MM3 Monocytes # (Auto) 0.9 TH/MM3 Eosinophils # (Auto) 0.2 TH/MM3 Basophils # (Auto) 0.2 TH/MM3 CBC Comment DIFF FINAL Differential Comment Prothrombin Time 11.2 SEC Prothromb Time International Ratio 1.0 RATIO Activated Partial Thromboplast Time 26.6 SEC Bedside Sodium 134 MMOL/L Blood Urea Nitrogen 19 MG/DL Creatinine 0.86 MG/DL Random Glucose 84 MG/DL Total Protein 7.8 GM/DL Albumin 3.3 GM/DL Calcium Level 8.0 MG/DL Magnesium Level 2.2 MG/DL Alkaline Phosphatase 131 U/L Aspartate Amino Transf (AST/SGOT) 56 U/L Alanine Aminotransferase (ALT/SGPT) 30 U/L Total Bilirubin 0.5 MG/DL Sodium Level 135 MEQ/L Potassium Level 4.2 MEQ/L Chloride Level 101 MEQ/L Carbon Dioxide Level 24.7 MEQ/L Bedside Potassium 4.7 MMOL/L Bedside Chloride 104 MMOL/L Anion Gap 9 MEQ/L Bedside Blood Urea Nitrogen 25 MG/DL Bedside Creatinine 0.8 MG/DL Estimat Glomerular Filtration Rate 90 ML/MIN Bedside Glucose 85 MG/DL Lactic Acid Level 2.3 mmol/L 1.3 mmol/L Total Creatine Kinase 123 U/L Creatine Kinase MB 3.8 NG/ML Troponin I 0.25 NG/ML B-Type Natriuretic Peptide 1267 PG/ML Urine Color LIGHT-YELLOW Urine Turbidity CLEAR Urine pH 5.0 Urine Specific [place] 1.004 Urine Protein NEG mg/dL Urine Glucose (UA) NEG mg/dL Urine Ketones NEG mg/dL Urine Occult Blood TRACE Urine Nitrite NEG Urine Bilirubin NEG Urine Urobilinogen LESS THAN 2.0 MG/DL Urine Leukocyte Esterase NEG Urine RBC LESS THAN 1 /hpf Urine WBC 1 /hpf Urine Mucus FEW /lpf Microscopic Urinalysis Comment CATH-CULT NOT IND Imaging Last 48 hours Impressions Chest X-Ray 12/21/162150 Signed Impressions: Service Date/Time: , December 21, 2016 22:03 - CONCLUSION: 1. Interstitial prominence seen previously shows interval improvement. 2. No confluent infiltrate. Walker Neri MD Assessment and Plan Problem List: (1) MRSA (methicillin resistant Staphylococcus aureus) ICD Codes: A49.02 - MRSA (methicillin resistant Staphylococcus aureus) Status: Chronic (2) Hx IVDA Status: Chronic (3) Gram-positive cocci bacteremia ICD Codes: R78.81 - Bacteremia Plan: needs KIRSTIN. I obtained informed consent (4) Chest pain ICD Codes: R07.9 - Chest pain, unspecified Status: Acute (5) Non-ST elevation [place] (NSTEMI) ICD Codes: I21.4 - Non-ST elevation (NSTEMI) myocardial infarction Plan: Hold off on urgent cath - needs infection treated first (6) Cocaine abuse ICD Codes: F14.10 - Cocaine abuse, uncomplicated (7) Noncompliance ICD Codes: Z91.19 - Patient's noncompliance with other medical treatment and regimen Manuel Paredes MD Dec 22, 2016 10:09
[2016-12-22] MEDS ORDERED: ACETAMINOPHEN/HYDROcodone 325 MG/5 MG TAB PO PRN (10:15)
[2016-12-22] MEDS ORDERED: PROPOFOL 200 MG/20 ML AMP IV ONE (10:15)
[2016-12-22] MEDS ORDERED: NALOXONE HCL 0.4 MG/ML AMP IV PRN (10:15)
[2016-12-22] MEDS ORDERED: PHENYLEPH/NS 1000 MCG/10 ML SYR IV ONE (10:15)
--- NOTE | 2016-12-22 11:39 | EKG ---
Date Performed: 12/21/2016 Time Performed: 21:42:48 PTAGE: 61 years EKG: Sinus rhythm ANTEROSEPTAL MYOCARDIAL INFARCTION POSSIBLE ACUTE OK T WAVE ABNORMALITY, CONSIDER INFERIOR ISC HEMIA PREVIOUS TRACING : 12/18/2016 16.43 Compared to previous tracing, anterior/septal ST elev ation is now evident. DOCTOR: Arnie Kidd Interpretating Date/Time 12/22/2016 11:37:27
[2016-12-22] MEDS: GABAPENTIN 100 MG CAP PO SCH ×2 (11:46→18:18)
[2016-12-22] MEDS: ACETAMINOPHEN/HYDROcodone 325 MG/7.5 MG TAB PO PRN ×3 (11:47→21:18)
[2016-12-22] MEDS: SODIUM CHLORIDE 0.9% FLUSH 10 ML FLUSH IV FLUSH SCH ×2 (11:47→21:18)
[2016-12-22 13:47] LABS: BICARBONATE 22.5 MEQ/L (21.0-32.0); POTASSIUM 4.3 MEQ/L (3.5-5.1)
[2016-12-22 14:41] LABS: AUTOMATED NEUTROPHIL # 7.6 TH/MM3 (1.8-7.7); BASOPHIL % 0.1 % (0.0-2.0); EOSINOPHIL # 0.1 TH/MM3 (0-0.4); EOSINOPHIL % 1.1 % (0.0-4.0); HEMATOCRIT 34.9 % (39.0-51.0); HEMO FLAGS DIFF FINAL; LYMPH % 15.9 % (9.0-44.0); LYMPHOCYTE # 1.6 TH/MM3 (1.0-4.8); MEAN CELL VOLUME 79.2 FL (80.0-100.0); MEAN CORPUSCULAR HEMOGLOBIN 25.1 PG (27.0-34.0); MEAN CORPUSCULAR HGB CONC 31.7 % (32.0-36.0); MONO % 5.3 % (0.0-8.0); NEUT % 77.6 % (16.0-70.0); PLATELET COUNT 243 TH/MM3 (150-450); RED BLOOD COUNT 4.41 MIL/MM3 (4.50-5.90); RED CELL DISTRIBUTION WIDTH 15.7 % (11.6-17.2); WHITE BLOOD COUNT 9.9 TH/MM3 (4.0-11.0)
[2016-12-22] MEDS: VANCOMYCIN INJ 1,250 MG in SODIUM CHLOR 0.9% 250 ML INJ 250 ML IV SCH (15:45)
[2016-12-22] MEDS ORDERED: ATORVASTATIN 10 MG TAB PO SCH (21:00)
--- NOTE | 2016-12-22 23:01 | ECHRPT ---
Indication: ENDOCARDITIS CONCLUSIONS Aortic valve endocarditis. BP: / HR: Rhythm: Sinus Technical Quality:Excellent Medications Complications There were no complications prior to, during or in recovery from the transesophag eal echocardiogram.. Proc. Components FINDINGS LEFT VENTRICLE There is diffuse global hypokinesis with distinct regional wall motion abnormalities. Estimated LVEF is 40%. Distal anteroseptal akinesis with scarring. RIGHT VENTRICLE Normal right ventricular size and systolic function. Normal right ventricular size and systolic function. LEFT ATRIUM The left atrial size is normal. Clear LA appendage RIGHT ATRIUM The right atrial size is normal. ATRIAL APPENDAGES Normal left atrial appendage size with no evidence of thrombus formation. ATRIAL SEPTUM Normal atrial septal thickness without atrial level shunting by limited color doppler interrogation. AORTA Minmal plaquing MITRAL VALVE Structurally normal mitral valve. No mitral valve stenosis or regurgitation. AORTIC VALVE Aortic valve sclerosis is present. Moderate thickening of the aortic valve leaflets. No aortic valve stenosis. Mild aortic valve regurgitation. Findings consistent with mobile vegetation 7x10mm on the left coronary cusp of the aortic valve. TRICUSPID VALVE Structurally normal tricuspid valve. No tricuspid valve stenosis or regurgitation. VESSELS No pulmonary valve regurgitation or stenosis. PERICADIUM No pericardial effusion. Manuel Paredes MD (Electronically Signed) Final Date:22 December 2016 23:00
[2016-12-23] VITALS: BP 109/57; PULSE 75; RESP 20; TEMP 98.4; O2SAT 97
[2016-12-23] MEDS: ACETAMINOPHEN/HYDROcodone 325 MG/7.5 MG TAB PO PRN ×3 (02:23→17:05)
[2016-12-23] MEDS: VANCOMYCIN INJ 1,250 MG in SODIUM CHLOR 0.9% 250 ML INJ 250 ML IV SCH ×2 (02:40→14:02)
[2016-12-23 04:00] VITALS: BP 110/49; PULSE 72; RESP 20; TEMP 98.4; O2SAT 97
[2016-12-23 08:00] VITALS: BP 112/58; PULSE 84; RESP 18; TEMP 98.6; O2SAT 98
[2016-12-23] MEDS: GABAPENTIN 100 MG CAP PO SCH ×3 (08:37→17:05)
[2016-12-23] MEDS: SODIUM CHLORIDE 0.9% FLUSH 10 ML FLUSH IV FLUSH SCH (08:38)
--- NOTE | 2016-12-23 09:00 | HHI.PR ---
Subjective Remarks Follow-up non-ST elevation [place]/recent bacteremia and now aortic valve endocarditis 12/23/16-patient seen and examined, [facility] patient has not taken his meds over the past 2 days therefore likely. Otherwise no acute event overnight. Afebrile. Denies any chest pain or shortness of breath. Objective Vitals Vital Signs Date Time Temp Pulse Resp B/P (MAP) Pulse Ox O2 Delivery O2 Flow Rate FiO2 12/23/16 04:00 98.4 72 20 110/49 (69) 97 12/23/16 00:00 98.4 75 20 109/57 (74) 97 12/22/16 20:00 98.6 68 20 110/52 (71) 97 12/22/16 15:00 97.3 74 18 91/57 (68) 12/22/16 12:59 12 12/22/16 11:00 98.3 74 18 115/74 (88) I/O 12/22/16 12/22/16 12/22/16 12/23/16 12/23/16 12/23/16 07:00 15:00 23:00 07:00 15:00 23:00 Intake Total 250 ml Output Total 500 ml Balance -250 ml Intake Oral 0 ml IV Total 250 ml Output Urine Total 500 ml Result Diagram: 12/22/16 1401 12/22/16 1233 Imaging Last Impressions Chest X-Ray 12/21/161 Signed Impressions: Service Date/Time: December 22:03 - CONCLUSION: 1. Interstitial prominence seen previously shows interval improvement. 2. No confluent infiltrate. Walker Neri MD Objective Remarks GENERAL: NAD SKIN: Warm and dry. Multiple skin rashes to upper and lower extremities HEAD: Normocephalic. EYES: No scleral icterus. No injection or drainage. NECK: Supple, trachea midline. No JVD or lymphadenopathy. CARDIOVASCULAR: Regular rate and rhythm without murmurs, gallops, or rubs. RESPIRATORY: Breath sounds equal bilaterally. No accessory muscle use. GASTROINTESTINAL: Abdomen soft, non-tender, nondistended. MUSCULOSKELETAL: No cyanosis, or edema. BACK: Nontender without obvious deformity. No CVA tenderness. A/P Problem List: (1) Non-ST elevation [place] (NSTEMI) ICD Code: I21.4 - Non-ST elevation (NSTEMI) myocardial infarction (2) Gram-positive cocci bacteremia ICD Code: R78.81 - Bacteremia (3) Bacterial skin infection of leg ICD Code: L03.119 - Cellulitis of unspecified part of limb (4) Community acquired bacterial pneumonia ICD Code: J15.9 - Unspecified bacterial pneumonia (5) Hx IVDA Status: Chronic (6) Endocarditis of aortic valve ICD Code: I35.8 - Other nonrheumatic aortic valve disorders Assessment and Plan 61-year-old man with Non-ST elevation [place] Management per cardiology However due to current infections including recent bacteremia and lower extremity abscesses/cellulitis, defer left heart catheterization until patient is stable medically Continue with heparin and nitroglycerin drips, however hold it anti-KIRSTIN completed s/p KIRSTIN 12/22/16 with finding of aortic valve endocarditis Gram-positive bacteremia diagnosed 12/18/16 prior to patient signing AMA Status post Azactam, Levaquin 1 in ED Continue vancomycin pending final culture reports Consult infectious disease specialist Aortic valve endocarditis KIRSTIN 12/22/16 with Findings consistent with mobile vegetation 7x10mm on the left coronary cusp of the aortic valve. Appreciate input from cardiology Currently on vancomycin IV pending further evaluation from infectious disease specialist Severe sepsis: Heart rate over 90, WBC > 32914, < 4000 or > 10% bands; Lactate > 2, Infect source susp/known(bacteremia, pulmonary infiltrate, leg infections/ abscesses) Continue vancomycin pending cultures reports Bilateral lower extremities skin infections/abscesses Wound culture positive for MRSA Continue vancomycin IV Nicotine dependence Counseled to quit On Nicotine patch IVDU Repeat UDS KIRSTIN report noted DVT prophylaxis: Oracio Moore MD Dec 23, 2016 09:00
--- NOTE | 2016-12-23 10:30 | PD.CARD.PN ---
Subjective Subjective Remarks No specific chest pain (continues to have his chronic opiod dependent pain.) Objective Medications Administered Medications Medications (Trade) Dose Ordered Sig/Yolanda Route PRN Reason Start Time Stop Time Status Last Admin Dose Admin Sodium Chloride (NS Flush) 2 ml BID IV FLUSH 12/22/16 09:00 12/23/16 08:38 Vancomycin HCl 1250 mg/Sodium Chloride 262.5 ml @ 262.5 mls/ hr Q12H IV 12/22/16 13:00 12/23/16 02:40 Ondansetron HCl (Zofran Inj) 4 mg Q6H PRN IV NAUSEA 12/22/16 07:30 12/23/16 08:37 Al Hydrox/Mg Hydrox/Simethicone (Mag-Al Plus Susp Liq) 30 ml Q6H PRN PO DYSPEPSIA 12/22/16 07:30 12/22/16 11:47 Atorvastatin Calcium (Lipitor) 10 mg HS PO 12/22/16 21:00 12/22/16 21:17 Gabapentin (Neurontin) 100 mg TID PO 12/22/16 13:00 12/23/16 08:37 Acetaminophen/ Hydrocodone Bitart ([place] 5-325 Mg) 1 tab Q4H PRN PO PAIN SCALE 3 TO 5 12/22/16 10:15 12/23/16 08:38 Acetaminophen/ Hydrocodone Bitart ([place] 7.5-325 Mg) 1 tab Q4H PRN PO PAIN SCALE 6 TO 10 12/22/16 10:15 12/23/16 02:23 Vital Signs / I&O Vital Signs Date Time Temp Pulse Resp B/P (MAP) Pulse Ox O2 Delivery O2 Flow Rate FiO2 12/23/16 08:00 98.6 84 18 112/58 (76) 98 12/23/16 04:00 98.4 72 20 110/49 (69) 97 12/23/16 00:00 98.4 75 20 109/57 (74) 97 12/22/16 20:00 98.6 68 20 110/52 (71) 97 12/22/16 15:00 97.3 74 18 91/57 (68) 12/22/16 12:59 12 12/22/16 11:00 98.3 74 18 115/74 (88) I/O 9/8/17 12/22/16 12/22/16 12/23/16 12/23/16 12/23/16 07:00 15:00 23:00 07:00 15:00 23:00 Intake Total 250 ml Output Total 500 ml Balance -250 ml Intake Oral 0 ml IV Total 250 ml Output Urine Total 500 ml Physical Exam GENERAL: This is a well-nourished, well-developed patient, in no apparent distress. CARDIOVASCULAR: Regular rate and rhythm without murmurs, gallops, or rubs. RESPIRATORY: Clear to auscultation. Breath sounds equal bilaterally. No wheezes , rales, or rhonchi. GASTROINTESTINAL: Abdomen soft, non-tender, nondistended. Normal active bowel sounds MUSCULOSKELETAL: Extremities without clubbing, cyanosis, or edema. NEURO: Alert & Oriented x4 to person, place, time, situation. Moves all ext x4 Laboratory Laboratory Tests Test 12/22/16 12:33 12/22/16 14:01 Blood Urea Nitrogen 14 MG/DL Creatinine 0.90 MG/DL Random Glucose 119 MG/DL Calcium Level 7.8 MG/DL Sodium Level 136 MEQ/L Potassium Level 4.3 MEQ/L Chloride Level 107 MEQ/L Carbon Dioxide Level 22.5 MEQ/L Anion Gap 7 MEQ/L Estimat Glomerular Filtration Rate 86 ML/MIN White Blood Count 9.9 TH/MM3 Red Blood Count 4.41 MIL/MM3 Hemoglobin 11.1 GM/DL Hematocrit 34.9 % Mean Corpuscular Volume 79.2 FL Mean Corpuscular Hemoglobin 25.1 PG Mean Corpuscular Hemoglobin Concent 31.7 % Red Cell Distribution Width 15.7 % Platelet Count 243 TH/MM3 Mean Platelet Volume 7.9 FL Neutrophils (%) (Auto) 77.6 % Lymphocytes (%) (Auto) 15.9 % Monocytes (%) (Auto) 5.3 % Eosinophils (%) (Auto) 1.1 % Basophils (%) (Auto) 0.1 % Neutrophils # (Auto) 7.6 TH/MM3 Lymphocytes # (Auto) 1.6 TH/MM3 Monocytes # (Auto) 0.5 TH/MM3 Eosinophils # (Auto) 0.1 TH/MM3 Basophils # (Auto) 0.0 TH/MM3 CBC Comment DIFF FINAL Differential Comment Hematology Comments Imaging Last Impressions Chest X-Ray 12/21/16 4179 Signed Impressions: Service Date/Time: December 22:03 - CONCLUSION: 1. Interstitial prominence seen previously shows interval improvement. 2. No confluent infiltrate. Walker Neri MD Assessment and Plan Problem List: (1) MRSA (methicillin resistant Staphylococcus aureus) ICD Codes: A49.02 - MRSA (methicillin resistant Staphylococcus aureus) Status: Chronic (2) Hx IVDA Status: Chronic (3) Gram-positive cocci bacteremia ICD Codes: R78.81 - Bacteremia (4) Chest pain ICD Codes: R07.9 - Chest pain, unspecified Status: Acute Plan: may need cath at some point per Dr. Paredes, but ID issues need to be resolved first. (5) Non-ST elevation [place] (NSTEMI) ICD Codes: I21.4 - Non-ST elevation (NSTEMI) myocardial infarction (6) Cocaine abuse ICD Codes: F14.10 - Cocaine abuse, uncomplicated (7) Noncompliance ICD Codes: Z91.19 - Patient's noncompliance with other medical treatment and regimen (8) Endocarditis of aortic valve ICD Codes: I35.8 - Other nonrheumatic aortic valve disorders Plan: abx per ID Assessment and Plan will be available (or one of my partners) as needed Sunday and Dr. Paredes will return Sunday. Rodrick Neves MD Dec 23, 2016 10:30
[2016-12-23 12:00] VITALS: BP 119/64; PULSE 83; RESP 18; TEMP 98.5; O2SAT 99
--- NOTE | 2016-12-23 15:26 | PD.ID.CON ---
History of Present Illness Service ID Consult Requested By Dr Paredes Reason for Consult Endocarditis Primary Care Physician Meron Guerra MD Diagnoses: History of Present Illness Pt is known to me from his previous recent admission on 12/18 . I was consulted for + blood clx growing GPC Endocarditis w/u was started , but the pt left AMA next day I reviewed the chart. He came back yday with chest pain on STEMI alert He has KIRSTIN done and it showed 10 mm aortic valve vegetation [place] Enterocccus fecalis in / blood clx from Sep 3 Repeat clx from this admission are so far negative @ 2 days Pt is on vancomycin, he is allergic to PCN Past Family Social History Allergies: Coded Allergies: penicillin G (Unverified Allergy, Intermediate, SOB, RASH, 12/30/16) Penicillins (Verified Allergy, Unknown, 12/30/16) Past Medical History History of CVA dyslipidemia COPD Hepatitis, C Past Surgical History neck surgery in 1989 related to accident Active Ordered Medications Medications where reviewed in EMR Antibiotics Include: vancomcyin Family History Not aware of significant disease in the family Social History Smoke daily for last over 20 years, 6 sigs/da Alcohol - quit 20 yrs ago + illicit abuse,including + DOA for cocaine Physical Exam Vital Signs Vital Signs Date Time Temp Pulse Resp B/P (MAP) Pulse Ox O2 Delivery O2 Flow Rate FiO2 12/23/16 14:11 18 12/23/16 12:00 98.5 83 18 119/64 (82) 99 12/23/16 09:45 18 12/23/16 08:00 98.6 84 18 112/58 (76) 98 12/23/16 04:00 98.4 72 20 110/49 (69) 97 12/23/16 00:00 98.4 75 20 109/57 (74) 97 12/22/16 20:00 98.6 68 20 110/52 (71) 97 Physical Exam Pt just walked out AMA Laboratory Date/Time Source Procedure Growth Status 12/22/16 01:55 Blood Peripheral Aerobic Blood Culture - Preliminary NO GROWTH IN 1 DAY Resulted 12/22/16 01:55 Blood Peripheral Anaerobic Blood Culture - Preliminary NO GROWTH IN 1 DAY Resulted Result Diagram: 12/22/16 1401 12/22/16 1233 Imaging Last Impressions Chest X-Ray 12/21/161 Signed Impressions: Service Date/Time: December 22:03 - CONCLUSION: 1. Interstitial prominence seen previously shows interval improvement. 2. No confluent infiltrate. Walker Neri MD Assessment and Plan Assessment and Plan Consult cancelled Pt walked out AMA arcelia RN - apparently pt left AMA becasuse he did not get the amount of pain medx that he wanted That was the same reason he left AMA last time Tiff Donohue MD Dec 23, 2016 15:26
[2016-12-23 16:00] VITALS: BP 136/74; PULSE 89; RESP 18; TEMP 98.6; O2SAT 94
[2016-12-23 17:54] VITALS: RESP 18
[2016-12-24] MEDS ORDERED: CLOPIDOGREL 75 MG TAB PO SCH (09:00)
[2016-12-24] MEDS ORDERED: PHARMACY ORDERED LAB ONE (12:45)
--- NOTE | 2016-12-24 16:33 | PD.AMA ---
Against Medical Advice Note Discharge Disposition: Against Medical Advice AMA Statement Patient Bay Rosenberg has decided to leave the hospital against medical advice. This patient has the capacity to refuse care and understands the risks of leaving, including permanent disability and/or , and has had an opportunity to ask questions about his condition. The patient has been informed that he may return for care at any time, and follow up has been arranged/ advised. Oracio Chaudhari MD Dec 24, 2016 16:33
== END 2016-12-23 18:29 | disposition left against medical advice (07) | DRG 871 ==
LOC: NEPC 19:56 → NEDA 22:31 → HCIS 12-22 02:16
PROVIDERS: ADMIT Hospitalist; ATTEND Hospitalist
PROC: 05HQ33Z Insertion of Infusion Device into Left External Jugular Vein, Percutaneous Approach (ICD-10-PCS; principal; 2016-12-21)
PROC: B246ZZ4 Ultrasonography of Right and Left Heart, Transesophageal (ICD-10-PCS; 2016-12-22)
DX: A41.9 Sepsis, unspecified organism (principal); I21.4 Non-ST elevation (NSTEMI) myocardial infarction; I33.9 Acute and subacute endocarditis, unspecified; J12.9 Viral pneumonia, unspecified; L03.116 Cellulitis of left lower limb; L03.115 Cellulitis of right lower limb; J44.0 Chronic obstructive pulmonary disease with (acute) lower respiratory infection; F11.23 Opioid dependence with withdrawal; I25.10 Atherosclerotic heart disease of native coronary artery without angina pectoris; I25.2 Old myocardial infarction; B95.62 Methicillin resistant Staphylococcus aureus infection as the cause of diseases classified elsewhere; E78.5 Hyperlipidemia, unspecified; R65.20 Severe sepsis without septic shock; F17.200 Nicotine dependence, unspecified, uncomplicated; F14.10 Cocaine abuse, uncomplicated; Z86.14 Personal history of Methicillin resistant Staphylococcus aureus infection; Z82.49 Family history of ischemic heart disease and other diseases of the circulatory system; Z86.19 Personal history of other infectious and parasitic diseases; Z86.73 Personal history of transient ischemic attack (TIA), and cerebral infarction without residual deficits; Z88.0 Allergy status to penicillin; Z91.19 Patient's noncompliance with other medical treatment and regimen; Z98.1 Arthrodesis status
CPT/HCPCS: 71010; 80048; 80053; 80307; 81001; 82435; 82550; 82552; 82565; 82947; 83605; 83735; 83880; 84132; 84295; 84484; 84520; 85025; 85610; 85730; 87040; 93005; 93312; 93320; 93325; J1644; J1956; J2370; J2405; J3370; J7030; J7040; J7050

== ENCOUNTER 2016-12-24 00:26 | Inpatient (IN) | payer MEDICARE, MEDICAID ==
[2016-12-24] VITALS (26 sets, daily range): BP systolic 77–171; BP diastolic 48–98; PULSE 52–138; RESP 16–28; TEMP 97.9–100.9; O2SAT 88–100
[~2016-12-24] VITALS: Ht 182.9 cm; Wt 72.9 kg
[~2016-12-24 00:26] MED LIST changes: +ATOR10TA15 PO; +CLON0.1T PO
[2016-12-24] MEDS ORDERED: SODIUM CHLORIDE 0.9% FLUSH 10 ML FLUSH IVF PRN ×2 (01:00→18:15)
[2016-12-24] MEDS ORDERED: VANCOMYCIN INJ 1,000 MG in SODIUM CHLOR 0.9% 250 ML INJ 250 ML IV ONE (01:00)
--- NOTE | 2016-12-24 01:16 | PD ---
HPI . Shortness of breath Chief Complaint: Chest Pain Time Seen by Provider: 00:36 Travel History International Travel<30 days: No Contact w/Intl Traveler<30days: No Traveled to known affect area: No History of Present Illness HPI This patient presents to us via [facility] with the chief complaint of shortness of breath. He states that the shortness of breath started 15 minutes prior to arrival and that it improved with a breathing treatment that was done prior to the arrival of EMS. This patient was admitted here on 12/17 and left AMA on 12/19. At that time, his working diagnoses were community-acquired pneumonia and skin infection of the legs. He had 4 out of 4 blood cultures positive for Enterococcus faecalis which was treated with vancomycin. He was also diagnosed with a NSTEMI with a troponin of 1.12 on 12/18. The patient presented back on 12/21. A STEMI alert was called at that time. His troponin was 0.25. Dr. Paredes, cardiology, he wanted to take the patient to the catheter lab. However, because of the positive blood cultures and skin infection of his legs, this plan was aborted. He was treated medically. He subsequently had a KIRSTIN done on 12/22 which showed an aortic valve vegetation measuring 10 mm in diameter. The patient was evaluated by ID, Dr. Donohue, who agreed with vancomycin. Her note was cut short because the patient left AMA before she completed her consultation. Therefore, there is no mention as to how long she would recommend that the patient be treated. PFSH Past Medical History Hx Anticoagulant Therapy: Yes (PLAVIX) Arthritis: No Asthma: No Autoimmune Disease: No Blood Disorders: No Anxiety: No Depression: No Heart Rhythm Problems: Yes Cancer: No Cardiovascular Problems: Yes (CHEST PAIN WITH NEW ST ELEVATION (12/21/16)) High Cholesterol: No Chemotherapy: No Chest Pain: Yes Congestive Heart Failure: No Cirrhosis: Yes COPD: No Cerebrovascular Accident: Yes Diabetes: No Diminished Hearing: No Endocrine: No Gastrointestinal Disorders: Yes GERD: No Glaucoma: No Genitourinary: No Headaches: Yes Hepatitis: Yes (HEP-C) Hiatal Hernia: No Immune Disorder: No Implanted Vascular Access Dvce: No Musculoskeletal: Yes (WEAK IN LEGS) Neurologic: Yes (PAIN IN NECK REGION) Psychiatric: No Reproductive: No Respiratory: Yes (HE IS SOB WITH EXERTION; CURRENTLY HAS VIRAL PNA (12/21/16)) Integumentary: Yes (easily compromised) Immunizations Current: No Migraines: Yes Myocardial Infarction: Yes Pneumonia: Yes (VIRAL PNA) Radiation Therapy: No Seizures: No Sickle Cell Disease: No Sleep Apnea: No Thyroid Disease: No Ulcer: No Past Surgical History Appendectomy: Yes Body Medical Devices: METAL , SCREWS IN C5, C6 Cardiac Surgery: No Cholecystectomy: Yes Ear Surgery: No Endocrine Surgery: No Eye Surgery: Yes Genitourinary Surgery: No Neurologic Surgery: Yes (c5-c6 discectomy and plating ) Oral Surgery: No Pacemaker: No Thoracic Surgery: No Other Surgery: Yes (APPENDIX OUT. CERVICAL 3456 OLAF AND FUSION) Social History Alcohol Use: No Tobacco Use: Yes (4-5 CIGARS A DAY ) Substance Use: Yes (COCAINE BUT DENIES ANY RECENT USE) Allergies-Medications (Allergen,Severity, Reaction): Coded Allergies: penicillin G (Unverified Allergy, Intermediate, SOB, RASH, 12/24/16) Penicillins (Verified Allergy, Unknown, 12/24/16) *MDRO Multi-Drug Resistant Organism (Verified Adverse Reaction, Unknown, ) MRSA (wound) - 12/20/2012; (leg) - 11/01/15 Reported Meds & Prescriptions Reported Meds & Active Scripts Active Reported Atorvastatin (Atorvastatin Calcium) 10 Mg Tab 10 Mg PO HS Clonidine (Clonidine HCl) 0.1 Mg Tab 0.1 Mg PO BID Dilaudid (Hydromorphone HCl) 4 Mg Tab 4 Mg PO Q6H PRN Plavix (Clopidogrel Bisulfate) 75 Mg Tab 75 Mg PO DAILY Gabapentin 100 Mg Cap 100 Mg PO TID Review of Systems Except as stated in HPI: all other systems reviewed are Neg General / Constitutional: No: Fever, Chills Cardiovascular: Positive: Chest Pain or Discomfort Respiratory: Positive: Shortness of Breath Skin: Positive Lesions Physical Exam Narrative GENERAL: Disheveled appearing white male who is in no acute distress. SKIN: warm/dry. He has no bleeding is noted on his lower extremities. However , none of them look infected. That is, there is no redness or warmth of the skin. There is no purulent drainage. HEAD: Normocephalic. Atraumatic. EYES: Pupils equal and round. No scleral icterus. No injection or drainage. ENT: No nasal bleeding or discharge. Mucous membranes pink and moist. NECK: Trachea midline. Full range of motion without pain.. CARDIOVASCULAR: Regular rate and rhythm. No murmurs heard. RESPIRATORY: No accessory muscle use. Clear to auscultation. Breath sounds equal bilaterally. GASTROINTESTINAL: Abdomen soft. Nontender. Bowel sounds present. Nondistended. MUSCULOSKELETAL: No obvious deformities. NEUROLOGICAL: Awake and alert. No obvious cranial nerve deficits. Motor grossly within normal limits. Normal speech. PSYCHIATRIC: Appropriate mood and affect; insight and judgment normal. Data Data Last Documented VS Vital Signs Date Time Temp Pulse Resp B/P (MAP) Pulse Ox O2 Delivery O2 Flow Rate FiO2 12/24/16 02:00 72 16 85/53 (64) 97 Room Air 12/24/16 00:33 98.0 Orders Orders Basic Metabolic Panel (Bmp) (12/24/16 00:53) Ckmb (Isoenzyme) Profile (12/24/16 00:53) Complete Blood Count With Diff (12/24/16 00:53) Magnesium (Mg) (12/24/16 00:53) Prothrombin Time / Inr (Pt) (12/24/16 00:53) Act Partial Throm Time (Ptt) (12/24/16 00:53) Troponin I (12/24/16 00:53) Chest, Single Ap (12/24/16 00:53) Ecg Monitoring (12/24/16 00:53) Iv Access Insert/Monitor (12/24/16 00:53) Oximetry (12/24/16 00:53) Sodium Chloride 0.9% Flush (Ns Flush) (12/24/16 01:00) Blood Culture (12/24/16 00:55) Vancomycin Inj (Vancomycin Inj) (12/24/16 01:00) Drug Screen, Random Urine (12/24/16 01:00) Labs Laboratory Tests Test 12/24/16 00:32 12/24/16 02:15 Blood Urea Nitrogen 17 MG/DL Creatinine 0.97 MG/DL Random Glucose 123 MG/DL Calcium Level 7.7 MG/DL Magnesium Level 2.0 MG/DL Sodium Level 138 MEQ/L Potassium Level 3.8 MEQ/L Chloride Level 106 MEQ/L Carbon Dioxide Level 23.7 MEQ/L Anion Gap 8 MEQ/L Estimat Glomerular Filtration Rate 79 ML/MIN Total Creatine Kinase 42 U/L Troponin I 0.14 NG/ML White Blood Count 8.6 TH/MM3 Red Blood Count 4.15 MIL/MM3 Hemoglobin 10.9 GM/DL Hematocrit 32.8 % Mean Corpuscular Volume 79.2 FL Mean Corpuscular Hemoglobin 26.4 PG Mean Corpuscular Hemoglobin Concent 33.3 % Red Cell Distribution Width 15.7 % Platelet Count 226 TH/MM3 Mean Platelet Volume 8.0 FL Neutrophils (%) (Auto) 67.1 % Lymphocytes (%) (Auto) 22.5 % Monocytes (%) (Auto) 8.6 % Eosinophils (%) (Auto) 1.2 % Basophils (%) (Auto) 0.6 % Neutrophils # (Auto) 5.7 TH/MM3 Lymphocytes # (Auto) 1.9 TH/MM3 Monocytes # (Auto) 0.7 TH/MM3 Eosinophils # (Auto) 0.1 TH/MM3 Basophils # (Auto) 0.1 TH/MM3 CBC Comment DIFF FINAL Differential Comment Prothrombin Time 11.3 SEC Prothromb Time International Ratio 1.0 RATIO Activated Partial Thromboplast Time 28.5 SEC MDM Medical Decision Making Medical Screen Exam Complete: Yes Emergency Medical Condition: Yes Medical Record Reviewed: Yes (please see the history of present illness for review of records.) Interpretation(s) EKG shows a sinus rhythm with nonspecific lateral changes. No change from 12/21. It is changed since 12/18. Differential Diagnosis Differential diagnosis of dyspnea includes but is not limited to congestive heart failure, pneumonia, wheezing, pneumothorax, pulmonary embolism Narrative Course This patient presents with the chief complaint of dyspnea. He has a history of COPD. He also has a history of a recent TX and also a recent diagnosis of SBE. He has left here AMA twice during this past week. He reportedly requests narcotic medications and then leaves AMA when these are denied him. BMP Diagram 12/24/16 00:32 Calcium Level 7.7 L, Magnesium Level 2.0 Troponin is 0.14. This continues to trend down from previous. CXR>>Very small right pleural effusion again noted with minimal right base atelectasis. No pneumothorax. Heart size stable, within normal limits. The chest x-ray was independently viewed by me. CBC Diagram 12/24/16 02:15 This patient needs to be admitted for treatment of his SBE. He states that he is willing to stay this time. Diagnosis Primary Impression: Dyspnea Qualified Codes: R06.00 - Dyspnea, unspecified Additional Impression: Endocarditis of aortic valve Admitting Information Admitting Physician Requests: Admit Condition: Stable Hamida Osorio MD Dec 24, 2016 01:16
--- NOTE | 2016-12-24 01:29 | RADRPT ---
EXAM DATE/TIME: 12/24/2016 01:08 [facility] COMPARISON: CHEST SINGLE AP, December 21, 2016, 22:03. CT PULMONARY ANGIOGRAM, December 18, 2016, 17:50. INDICATIONS : Chest pain. MEDICAL HISTORY : Endocarditis. SURGICAL HISTORY : None. ENCOUNTER: Initial ACUITY: 1 day PAIN SCORE: 5/10 LOCATION: Bilateral chest FINDINGS: Very small right pleural effusion again noted with minimal right base atelectasis. No pneumothorax. H eart size stable, within normal limits. CONCLUSION: Mild atelectasis and small effusion of the right lung base. Jarred Agustin MD on December 24, 2016 at 1:27 Board Certified Radiologist. This report was verified electronically.
[2016-12-24 01:39] LABS: BICARBONATE 23.7 MEQ/L (21.0-32.0); POTASSIUM 3.8 MEQ/L (3.5-5.1)
[2016-12-24 02:42] LABS: AUTOMATED NEUTROPHIL # 5.7 TH/MM3 (1.8-7.7); BASOPHIL # 0.1 TH/MM3 (0-0.2); BASOPHIL % 0.6 % (0.0-2.0); EOSINOPHIL # 0.1 TH/MM3 (0-0.4); EOSINOPHIL % 1.2 % (0.0-4.0); HEMATOCRIT 32.8 % (39.0-51.0); HEMO FLAGS DIFF FINAL; LYMPH % 22.5 % (9.0-44.0); LYMPHOCYTE # 1.9 TH/MM3 (1.0-4.8); MEAN CELL VOLUME 79.2 FL (80.0-100.0); MEAN CORPUSCULAR HEMOGLOBIN 26.4 PG (27.0-34.0); MEAN CORPUSCULAR HGB CONC 33.3 % (32.0-36.0); MONO % 8.6 % (0.0-8.0); NEUT % 67.1 % (16.0-70.0); PLATELET COUNT 226 TH/MM3 (150-450); RED BLOOD COUNT 4.15 MIL/MM3 (4.50-5.90); RED CELL DISTRIBUTION WIDTH 15.7 % (11.6-17.2); WHITE BLOOD COUNT 8.6 TH/MM3 (4.0-11.0)
[2016-12-24 03:06] LABS: APTT (PATIENT) 28.5 SEC (24.3-30.1); PROTHROMBIN TIME - PATIENT 11.3 SEC (9.8-11.6)
[2016-12-24] MEDS ORDERED: ACETAMINOPHEN 325 MG TAB PO PRN (03:30)
[2016-12-24] MEDS ORDERED: SENNOSIDES 8.6 MG TAB PO PRN ×2 (03:30→19:00)
[2016-12-24] MEDS ORDERED: ONDANSETRON HCL 4 MG/2 ML VIAL IVP PRN (03:30)
[2016-12-24] MEDS ORDERED: SODIUM CHLORIDE 0.9% FLUSH 10 ML FLUSH IV FLUSH PRN ×2 (03:30→19:00)
[2016-12-24] MEDS ORDERED: MAGNESIUM HYDROXIDE SUSP 30 ML CUP PO PRN ×2 (03:30→19:00)
[2016-12-24] MEDS ORDERED: LACTULOSE SYRUP 20 GM/30 ML CUP PO PRN ×2 (03:30→19:00)
[2016-12-24] MEDS ORDERED: SODIUM CHLOR 0.9% 1000 ML INJ 1,000 ML IV ONE (03:30)
[2016-12-24] MEDS ORDERED: BISACODYL 10 MG SUPP RECTAL PRN ×2 (03:30→19:00)
[2016-12-24] MEDS ORDERED: Vancomycin Consult Pharmacy 1 EA OTHER SCH ×2 (03:30→18:45)
[2016-12-24] MEDS ORDERED: NITROGLYCERIN 2% OINT 1 GM PACKET TOPICAL PRN (03:45)
[2016-12-24] MEDS ORDERED: SODIUM CHLORID 0.9% 500 ML INJ 500 ML IV ONE (04:00)
--- NOTE | 2016-12-24 04:14 | HHI.HP ---
[facility] Meron Guerra MD Admission Diagnosis SBE Diagnoses: (1) Endocarditis of aortic valve Diagnosis: Principal (2) Elevated troponin Diagnosis: Principal (3) Noncompliance Diagnosis: Principal (4) IVDU (intravenous drug user) Diagnosis: Principal (5) Cocaine abuse Diagnosis: Principal (6) Tobacco abuse Diagnosis: Principal Travel History International Travel<30 Days: No Contact w/Intl Traveler <30 Da: No Traveled to Known Affected Are: No History of Present Illness This is a 61-year-old male with a PMH of Hepatitis C, CAD, Tobacco Abuse and IVDU who was brought to the ER by EMS secondary to complaints of SOB starting earlier tonight. Denies fever, chills, cough or chest pain. Multiple admits recently for similar complaints, however LEFT AMA during each hospitalization. Admitted 12/17/16 for NSTEMI and Sepsis/PNA, Blood Cultures 12/17/16 +E. Faecalis / , s/p eval by ID, on Vanc however LEFT AMA 12/19/16 prior to completion of treatment. Re-admitted 12/21/16 w/ STEMI, s/p KIRSTIN 12/22/[address] Paredes, found to have AV Vegetation, however LEFT AMA once again. Blood Cultures 12/22/16 negative x2. Previous Urine Drug Screen +Cocaine however denies ingestion. Urine Drug Screen from tonight pending. On arrival, BP 109/56, HR 91, O2 sat 100% on RA, Afebrile. CBC at baseline. Chemistry essentially unremarkable. Trop 0.14, previously 0.25 on 12/21/16. CXR w/ small right effusion. Pt agreeable to admission, states he will not LEAVE AMA this time. Review of Systems Except as stated in HPI: all other systems reviewed are Neg ROS: 14 point review of systems otherwise negative. Past Family Social History Past Medical History PMH: Past Surgical History PAST SURGICAL HISTORY: Appendectomy, Cervical Fusion, Cholecystectomy Allergies: Coded Allergies: penicillin G (Unverified Allergy, Intermediate, SOB, RASH, 12/24/16) Penicillins (Verified Allergy, Unknown, 12/24/16) *MDRO Multi-Drug Resistant Organism (Verified Adverse Reaction, Unknown, ) MRSA (wound) - 12/20/2012; (leg) - 11/01/15 Family History PAST FAMILY HISTORY: Reviewed. No h/o DM or CAD Social History PAST SOCIAL HISTORY: Negative for alcohol. Positive for tobacco. +IVDU w/ Cocaine Physical Exam Vital Signs Vital Signs Date Time Temp Pulse Resp B/P (MAP) Pulse Ox O2 Delivery O2 Flow Rate FiO2 12/24/16 02:00 72 16 85/53 (64) 97 Room Air 12/24/16 01:00 76 16 92/55 (67) 96 Room Air 12/24/16 00:33 98.0 91 18 109/56 (73) 100 Physical Exam PE: GENERAL: Middle-aged male in no acute distress, disheveled. HEENT: PERRLA, EOMI. No scleral icterus or conjunctival pallor. No lid lag or facial droop. CARDIOVASCULAR: Regular rate and rhythm. No obvious murmurs to auscultation. No chest tenderness to palpation. RESPIRATORY: No obvious rhonchi or wheezing. Clear to auscultation. Breath sounds equal bilaterally. GASTROINTESTINAL: Abdomen soft, non-tender, nondistended. BS normal. MUSCULOSKELETAL: Extremities without clubbing, cyanosis, or edema. No obvious deformities. NEUROLOGICAL: Awake, alert and oriented x4. No focal neurologic deficits. Moving both upper and lower extremities spontaneously. Laboratory Laboratory Tests Test 12/24/16 00:32 12/24/16 02:15 12/24/16 03:05 Blood Urea Nitrogen 17 Creatinine 0.97 Random Glucose 123 Calcium Level 7.7 Magnesium Level 2.0 Sodium Level 138 Potassium Level 3.8 Chloride Level 106 Carbon Dioxide Level 23.7 Anion Gap 8 Estimat Glomerular Filtration Rate 79 Total Creatine Kinase 42 Troponin I 0.14 White Blood Count 8.6 Red Blood Count 4.15 Hemoglobin 10.9 Hematocrit 32.8 Mean Corpuscular Volume 79.2 Mean Corpuscular Hemoglobin 26.4 Mean Corpuscular Hemoglobin Concent 33.3 Red Cell Distribution Width 15.7 Platelet Count 226 Mean Platelet Volume 8.0 Neutrophils (%) (Auto) 67.1 Lymphocytes (%) (Auto) 22.5 Monocytes (%) (Auto) 8.6 Eosinophils (%) (Auto) 1.2 Basophils (%) (Auto) 0.6 Neutrophils # (Auto) 5.7 Lymphocytes # (Auto) 1.9 Monocytes # (Auto) 0.7 Eosinophils # (Auto) 0.1 Basophils # (Auto) 0.1 CBC Comment DIFF FINAL Differential Comment Prothrombin Time 11.3 Prothromb Time International Ratio 1.0 Activated Partial Thromboplast Time 28.5 Date/Time Source Procedure Growth Status 12/24/16 00:57 Blood Peripheral Aerobic Blood Culture Pending Received 12/24/16 00:57 Blood Peripheral Anaerobic Blood Culture Pending Received Result Diagram: 12/24/16 0215 12/24/16 0032 Caprini VTE Risk Assessment Caprini VTE Risk Assessment: No/Low Risk (score <= 1) Caprini Risk Assessment Model Point Value = 1 Point Value = 2 Point Value = 3 Point Value = 5 Age 41-60 Minor surgery BMI > 25 kg/m2 Swollen legs Varicose veins or History of unexplained or recurrent spontaneous Oral contraceptives or hormone replacement Sepsis (< 1 month) Serious lung disease, including pneumonia (< 1 month) Abnormal pulmonary function Acute myocardial infarction Congestive heart failure (< 1 month) History of inflammatory bowel disease Medical patient at bed rest Age 61-74 Arthroscopic surgery Major open surgery (> 45 min) Laparoscopic surgery (> 45 min) Malignancy Confined to bed (> 72 hours) Immobilizing plaster cast Central venous access Age >= 75 History of VTE Family history of VTE Factor V Leiden Prothrombin [id number] Lupus anticoagulant Anticardiolipin antibodies Elevated serum homocysteine Heparin-induced thrombocytopenia Other congenital or acquired thrombophilia Stroke (< 1 month) Elective arthroplasty Hip, pelvis, or leg fracture Acute spinal cord injury (< 1 month) Prophylaxis Regimen Total Risk Factor Score Risk Level Prophylaxis Regimen 0-1 Low Early ambulation 2 Moderate Order ONE of the following: *Sequential Compression Device (SCD) *Heparin 5000 units SQ BID 3-4 Higher Order ONE of the following medications: *Heparin 5000 units SQ TID *Enoxaparin/Lovenox 40 mg SQ daily (WT < 150 kg, CrCl > 30 mL/min) *Enoxaparin/Lovenox 30 mg SQ daily (WT < 150 kg, CrCl > 10-29 mL/min) *Enoxaparin/Lovenox 30 mg SQ BID (WT < 150 kg, CrCl > 30 mL/min) AND/OR *Sequential Compression Device (SCD) 5 or more Highest Order ONE of the following medications: *Heparin 5000 units SQ TID (Preferred with Epidurals) *Enoxaparin/Lovenox 40 mg SQ daily (WT < 150 kg, CrCl > 30 mL/min) *Enoxaparin/Lovenox 30 mg SQ daily (WT < 150 kg, CrCl > 10-29 mL/min) *Enoxaparin/Lovenox 30 mg SQ BID (WT < 150 kg, CrCl > 30 mL/min) AND *Sequential Compression Device (SCD) Assessment and Plan Problem List: (1) Endocarditis of aortic valve ICD Code: I35.8 - Other nonrheumatic aortic valve disorders (2) Elevated troponin ICD Code: R74.8 - Abnormal levels of other serum enzymes (3) Noncompliance ICD Code: Z91.19 - Patient's noncompliance with other medical treatment and regimen (4) Cocaine abuse ICD Code: F14.10 - Cocaine abuse, uncomplicated (5) IVDU (intravenous drug user) ICD Code: F19.90 - Other psychoactive substance use, unspecified, uncomplicated (6) Tobacco abuse ICD Code: Z72.0 - Tobacco use Status: Acute Assessment and Plan A/P: 1. Endocarditis: h/o IVDU, Blood Cultures 12/17/16 +E. Faecalis 07/18, repeat BC negative x2. S/p eval by Dr. Donohue, on IV Vanc, however LEFT AMA prior to completion of antibiotics. KIRSTIN 12/22/[address] Paredes positive for AV Vegetation. Repeat Blood Cultures, will follow. S/p Vanc in ER, will continue. Consult ID for further recommendations. 2. Elevated Trop: Trop 0.14, trending down, previously 0.25 on 12/21/16. Previous admit for STEMI, s/p eval by Cardiology. No c/o chest pain. Will trend cardiac enzymes, start ASA, Statin. Hold B-javed in light of BP. 3. Non-compliance: 3rd admission in last 1wk, LEFT AMA twice before, assures me he is willing to stay and complete treatment this time. 4. Cocaine Abuse: Denies recent ingestion, however Urine Drug Screen positive. Ativan prn for agitation/withdrawal. 5. IVDU: w/ Cocaine/Dilaudid?. Ativan prn as above. 6. Tobacco Abuse: Pt counselled. Ativan prn. No NicoDerm in light of elevated trop. 7. DVT Prophylaxis: Heparin 8. Social work for d/c planning as needed. 9. Case discussed w/ ER physician at length. Physician Certification 2 Midnight Certification Type: Admission for Inpatient Services Order for Inpatient Services The services are ordered in accordance with Medicare regulations or non- Medicare payer requirements, as applicable. In the case of services not specified as inpatient-only, they are appropriately provided as inpatient services in accordance with the 2-midnight benchmark. Estimated LOS (days): 2 days is the estimated time the patient will need to remain in the hospital, assuming treatment plan goals are met and no additional complications. Post-Hospital Plan: Home Ana Luisa Calhoun MD Dec 24, 2016 04:14
[2016-12-24] MEDS: SODIUM CHLOR 0.9% 1000 ML INJ 1,000 ML IV SCH ×3 (04:36→23:08)
--- NOTE | 2016-12-24 08:10 | PD.CARD.PN ---
Subjective Subjective Remarks PT LEFT AMA YESTERDAY AND RETURNED; PLS SEE DOCUMENTATION FROM LAST ADMISSION FOR FULL CONSULT DETAILS He currently complains of cough and sputum production/congestion, general chest heaviness. Objective Medications Administered Medications Medications (Trade) Dose Ordered Sig/Yolanda Route PRN Reason Start Time Stop Time Status Last Admin Dose Admin Sodium Chloride 1,000 ml @ 100 mls/hr Q10H IV 12/24/16 03:29 12/24/16 04:36 Vital Signs / I&O Vital Signs Date Time Temp Pulse Resp B/P (MAP) Pulse Ox O2 Delivery O2 Flow Rate FiO2 12/24/16 07:26 98.9 70 17 80/50 (60) 94 12/24/16 04:52 58 16 94/56 (69) 97 Room Air 12/24/16 04:22 12/24/16 04:20 85/50 (62) 12/24/16 03:10 66 16 98/68 (78) 99 Room Air 12/24/16 02:00 72 16 85/53 (64) 97 Room Air 12/24/16 01:00 76 16 92/55 (67) 96 Room Air 12/24/16 00:33 98.0 91 18 109/56 (73) 100 I/O 12/23/16 12/23/16 12/23/16 12/24/16 12/24/16 12/24/16 06:59 14:59 22:59 06:59 14:59 22:59 Intake Total 1750 ml Output Total 725 ml Balance 1025 ml Intake IV Total 1750 ml Output Urine Total 725 ml Physical Exam GENERAL: This is a well-nourished, well-developed patient, in no apparent distress. CARDIOVASCULAR: Regular rate and rhythm without murmurs, gallops, or rubs. RESPIRATORY: Clear to auscultation. Breath sounds equal bilaterally. No wheezes , rales, or rhonchi. GASTROINTESTINAL: Abdomen soft, non-tender, nondistended. Normal active bowel sounds MUSCULOSKELETAL: Extremities without clubbing, cyanosis, or edema. NEURO: Alert & Oriented x4 to person, place, time, situation. Moves all ext x4 Laboratory Laboratory Tests Test 12/24/16 00:32 12/24/16 02:15 12/24/16 03:05 Blood Urea Nitrogen 17 MG/DL Creatinine 0.97 MG/DL Random Glucose 123 MG/DL Calcium Level 7.7 MG/DL Magnesium Level 2.0 MG/DL Sodium Level 138 MEQ/L Potassium Level 3.8 MEQ/L Chloride Level 106 MEQ/L Carbon Dioxide Level 23.7 MEQ/L Anion Gap 8 MEQ/L Estimat Glomerular Filtration Rate 79 ML/MIN Total Creatine Kinase 42 U/L Troponin I 0.14 NG/ML White Blood Count 8.6 TH/MM3 Red Blood Count 4.15 MIL/MM3 Hemoglobin 10.9 GM/DL Hematocrit 32.8 % Mean Corpuscular Volume 79.2 FL Mean Corpuscular Hemoglobin 26.4 PG Mean Corpuscular Hemoglobin Concent 33.3 % Red Cell Distribution Width 15.7 % Platelet Count 226 TH/MM3 Mean Platelet Volume 8.0 FL Neutrophils (%) (Auto) 67.1 % Lymphocytes (%) (Auto) 22.5 % Monocytes (%) (Auto) 8.6 % Eosinophils (%) (Auto) 1.2 % Basophils (%) (Auto) 0.6 % Neutrophils # (Auto) 5.7 TH/MM3 Lymphocytes # (Auto) 1.9 TH/MM3 Monocytes # (Auto) 0.7 TH/MM3 Eosinophils # (Auto) 0.1 TH/MM3 Basophils # (Auto) 0.1 TH/MM3 CBC Comment DIFF FINAL Differential Comment Prothrombin Time 11.3 SEC Prothromb Time International Ratio 1.0 RATIO Activated Partial Thromboplast Time 28.5 SEC Urine Opiates Screen POS Urine Barbiturates Screen NEG Urine Amphetamines Screen NEG Urine Benzodiazepines Screen NEG Urine Cocaine Screen POS Urine Cannabinoids Screen NEG Imaging Last Impressions Chest X-Ray 12/24/16 0053 Signed Impressions: Service Date/Time: Saturday, December 24, 2016 01:08 - CONCLUSION: Mild atelectasis and small effusion of the right lung base. Jarred Agustin MD Assessment and Plan Problem List: (1) Elevated troponin ICD Codes: R74.8 - Abnormal levels of other serum enzymes Plan: Dr. Paredes has recommend medical mgt until his infectious/endocarditis issues resolved. (2) Endocarditis of aortic valve ICD Codes: I35.8 - Other nonrheumatic aortic valve disorders Plan: He will need resumption of his IV abx (per ID) (3) Hepatitis C ICD Codes: B19.20 - Viral hepatitis C Status: Chronic (4) IVDU (intravenous drug user) ICD Codes: F19.90 - Other psychoactive substance use, unspecified, uncomplicated (5) Noncompliance ICD Codes: Z91.19 - Patient's noncompliance with other medical treatment and regimen Plan: counseled better compliance. (6) Tobacco abuse ICD Codes: Z72.0 - Tobacco use Status: Acute Assessment and Plan Dr. Paredes will return tomorrow to resume care. Rodrick Neves MD Dec 24, 2016 08:10
[2016-12-24] MEDS: SODIUM CHLORIDE 0.9% FLUSH 10 ML FLUSH IV FLUSH SCH ×3 (08:46→23:06)
[2016-12-24] MEDS: HEPARIN SODIUM - SQ 10,000 UNITS/ML VIAL SQ SCH ×2 (08:50→23:07)
[2016-12-24] MEDS: PRAVASTATIN SOD 40 MG TAB PO SCH (08:50)
[2016-12-24] MEDS ORDERED: DOCUSATE SODIUM 50 MG/SENNA 8.6 MG TAB PO SCH (09:00)
[2016-12-24] MEDS ORDERED: ASPIRIN EC 81 MG TABEC PO SCH (09:00)
--- NOTE | 2016-12-24 09:42 | EKG ---
Date Performed: 12/24/2016 Time Performed: 00:35:22 PTAGE: 61 years EKG: Sinus rhythm WITH OCCASIONAL SUPRAVENTRICULAR PREMATURE COMPLEXES SEPTAL MYOCARDIAL INFARCTION PREVIOUS TRACING 12/21/16 Since prior tracing, previously seen ST elevations have improv ed somewhat. Diffuse ischemic changes remain. DOCTOR: Rodrick Neves Interpretating Date/Time 12/24/2016 09:42:18
[2016-12-24] MEDS: VANCOMYCIN INJ 1,250 MG in SODIUM CHLOR 0.9% 250 ML INJ 250 ML IV SCH (13:26)
--- NOTE | 2016-12-24 15:05 | HHI.PR ---
Addendum to Inpatient Note Addendum Reason: Additional Documentation Additional Information Patient seen and examined Continue with current treatment Oracio Chaudhari MD Dec 24, 2016 15:05
[2016-12-24] MEDS ORDERED: RESP: ALBUTEROL 2.5 MG/IPRATROPIUM 0.5 MG NEB (PRN) NEB (16:30)
[2016-12-24] MEDS ORDERED: LORazepam 2 MG/ML VIAL IV PUSH ONE (16:30)
[2016-12-24] MEDS: LORazepam 2 MG/ML VIAL IV PUSH PRN (16:34)
[2016-12-24] MEDS ORDERED: FUROSEMIDE 40 MG/4 ML VIAL ONE (17:24)
[2016-12-24] MEDS ORDERED: FUROSEMIDE 40 MG/4 ML VIAL IV PUSH ONE (17:30)
--- NOTE | 2016-12-24 17:33 | HHI.PR ---
Addendum to Inpatient Note Addendum Reason: Additional Documentation Additional Information Patient was seen and examined; ON Exam he was in mild distress; HR: RRR, Lungs: Breath sounds decrease bilaterally with significant expiratory wheeze and use of accessory muscle; GI: +BS, NT, ND Patient with severe respiratory decompensation 83% on 3-4L NC Initially given Solu Medrol 125mg IV x 1, Scheduled PRN JULIO, Ativan 1mg IV x 1 patient initially improved however now with severe acute hypoxic respiratory failure; for which he will require BIPAP vs Intubation Ordered Lasix 40mg IV x1 CT angiogram to rule out PE ABG stat stat EKG and cardiac enzymes case discussed with Intensive salesperson yard goods Will transfer patient to ICU Time spent 30 minutes (17:00-17:30) Oracio Chaudhari MD Dec 24, 2016 17:33
[2016-12-24] MEDS ORDERED: ETOMIDATE 20 MG/10 ML VIAL ONE ×2 (17:35→17:39)
[2016-12-24] MEDS: ROCURONIUM INJ 50 MG/5 ML VIAL ONE ×2 (17:35→18:47)
[2016-12-24] MEDS ORDERED: ROCURONIUM INJ 100 MG/10 ML VIAL IV ONE (17:45)
[2016-12-24] MEDS ORDERED: ETOMIDATE 40 MG/20 ML VIAL IV PUSH ONE (17:45)
[2016-12-24] MEDS ORDERED: PHENYLEPHRINE INJ 160 MG in DEXTROSE 5% IN WATE 500 ML INJ 484 ML IV PRN ×2 (17:45)
[2016-12-24] MEDS ORDERED: TERBUTALINE INJ 1 MG/ML AMP SQ PRN (17:45)
[2016-12-24] MEDS ORDERED: NALOXONE HCL 0.4 MG/ML AMP IV PRN (17:45)
[2016-12-24] MEDS ORDERED: methylPREDNISolone SOD SUCC 125 MG/2 ML VIAL IV PUSH ONE (18:00)
--- NOTE | 2016-12-24 18:13 | PD.PROCEDR ---
Central Line Procedure REASON FOR PROCEDURE Central venous access PROCEDURE PERFORMED Central line placement: Right IJ CVL CONSENT Informed consent for procedure was obtained. The risks and benefits of the procedure were discussed to include but limited to bleeding, clot formation, infection, and even . ANESTHESIA Local injection of 1% Lidocaine DESCRIPTION OF THE PROCEDURE The patient was placed in supine, mild Trendelenburg position. The area was exposed and cleansed with ChloraPrep, times two. Large sterile drape was used to cover the patient, with the site exposed, under sterile conditions including cap, face mask, sterile gown, and sterile gloves. On single attempt, the introducer needle was inserted with negative pressure in syringe and venous flash was obtained. The guide wire was then advanced without any restriction and the needle was removed. The dilator was used without any complications. Using Seldinger technique the antibiotic coated triple-lumen catheter was advanced over the guide wire to a depth of 16 centimeters. The guide wire was removed. All ports were aspirated with dark venous blood return and flushed easily with sterile saline. All ports were capped. Antibiotic disc was placed around central line at puncture site. The central line was secured to the skin with two interrupted 2.0 silk sutures. The area was bandaged with sterile see- through central line bandage. RADIOLOGICAL DATA Ultrasound guidance was used to locate right internal jugular vein. Doppler/ color flow was used to confirm venous flow. COMPLICATIONS: No apparent complications ESTIMATED BLOOD LOSS: Less than 1 cc. Leif Aldridge MD Dec 24, 2016 18:13
--- NOTE | 2016-12-24 18:28 | PD.CONS ---
HPI Service Critical Care Medicine Consult Requested By Dr. Torres Reason for Consult Acute respiratory failure Primary Care Physician Meron Guerra MD History of Present Illness 61-year-old male. Date of admission 12/24/2016. Date of consultation 12/24/2016. Past medical history includes left cerebellar CVA Hepatitis C, CAD, hypertension, dyslipidemia, COPD, peripheral neuropathy, microcytic anemia, Tobacco Abuse and IVDU with a positive toxicology screen for cocaine who was brought to the ER by EMS secondary to complaints of SOB starting earlier tonight patient has been admitted 12/17 for NSTEMI and +E. Faecalis 07/18 bacteremia, s/p eval by ID, on Vanc however LEFT AMA 12/19/16 prior to completion of treatment. Re-admitted 12/21/16 w/ STEMI, s/p KIRSTIN 12/22/[address] Paredes, found to have AV Vegetation 7 x 10 mm on left coronary cusp, however LEFT AMA once again. Blood Cultures 12/22/16 negative x2. O2 sat 100% on RA, Afebrile. CBC at baseline. Chemistry essentially unremarkable. Trop 0.14, previously 0.25 on 12/21/16. CXR w/ small right effusion In ED, patient became more combative a short of breath requiring 100% nonrebreather. Patient was sent to room 1306 and was emergently intubated in the floor with 20 mg etomidate and 50 mg rocuronium. Review of Systems ROS Limitations: Intubated Past Family Social History Allergies: Coded Allergies: penicillin G (Unverified Allergy, Intermediate, SOB, RASH, 12/24/16) Penicillins (Verified Allergy, Unknown, 12/24/16) *MDRO Multi-Drug Resistant Organism (Verified Adverse Reaction, Unknown, ) MRSA (wound) - 12/20/2012; (leg) - 11/01/15 Past Medical History Microcytic anemia Left cerebellar CVA Hypertension Dyslipidemia COPD Tobacco abuse Peripheral neuropathy Hepatitis C Past Surgical History Appendectomy Cholecystectomy ACDF 08/19/1996 Eye surgery unknown type Right wrist I&D Reported Medications Clopidogrel 75 mg by mouth daily Atorvastatin 10 mg by mouth daily Clonidine 0.1 mg by mouth twice a day Hydromorphone 4 mg by mouth every 6 hours Gabapentin 100 mg by mouth 3 times a day Active Ordered Medications Reviewed in EMR Family History Mother and father is nonacute 2. Specifically no previously documented history of coronary artery disease, hypertension, diabetes. Patient is currently orotracheally intubated and not able to provide Social History 6 cigarettes a day 20 years. Quit alcohol. Positive UDS for cocaine Physical Exam Vital Signs Vital Signs Date Time Temp Pulse Resp B/P (MAP) Pulse Ox O2 Delivery O2 Flow Rate FiO2 12/24/16 17:50 98 70 12/24/16 17:14 28 160/90 (113) 89 12/24/16 17:13 136 27 171/98 (122) 88 12/24/16 16:29 99 Nasal Cannula 2.00 12/24/16 16:18 134 22 98 12/24/16 12:04 93 12/24/16 11:07 99.2 83 16 95/54 (68) 96 12/24/16 08:26 75 104/54 (71) 12/24/16 08:07 69 12/24/16 07:26 98.9 70 17 80/50 (60) 94 12/24/16 04:52 58 16 94/56 (69) 97 Room Air 12/24/16 04:22 12/24/16 04:20 85/50 (62) 12/24/16 03:10 66 16 98/68 (78) 99 Room Air 12/24/16 02:00 72 16 85/53 (64) 97 Room Air 12/24/16 01:00 76 16 92/55 (67) 96 Room Air 12/24/16 00:33 98.0 91 18 109/56 (73) 100 Physical Exam GENERAL: 61-year-old male, critically ill currently orotracheally intubated SKIN: Warm and dry with scattered nodular lesions involving left upper and bilateral lower extremities well-healed/crusted yellowish HEAD: Atraumatic. Normocephalic. EYES: Pupils equal and round around 2 mm bilaterally and reactive. No scleral icterus. No injection or drainage. ENT: No nasal bleeding or discharge. Mucous membranes pink and moist. Orotracheally intubated NECK: Trachea midline. No JVD. Right IJ is clean dry and intact without erythema CARDIOVASCULAR: Tachycardic, RR. S1, S2. No S4. Without murmur RESPIRATORY: Clear to auscultation. Breath sounds equal bilaterally. GASTROINTESTINAL: Abdomen soft, non-tender, nondistended. Hypoactive bowel sounds are appreciated MUSCULOSKELETAL: Extremities without significant peripheral edema. No obvious deformities. NEUROLOGICAL: Sedated on the ventilator. Prior to intubation was awake and alert. Moved all 4 extremity spontaneously. Not any focal deficit Laboratory Laboratory Tests Test 12/24/16 00:32 12/24/16 02:15 12/24/16 03:05 Blood Urea Nitrogen 17 Creatinine 0.97 Random Glucose 123 Calcium Level 7.7 Magnesium Level 2.0 Sodium Level 138 Potassium Level 3.8 Chloride Level 106 Carbon Dioxide Level 23.7 Anion Gap 8 Estimat Glomerular Filtration Rate 79 Total Creatine Kinase 42 Troponin I 0.14 White Blood Count 8.6 Red Blood Count 4.15 Hemoglobin 10.9 Hematocrit 32.8 Mean Corpuscular Volume 79.2 Mean Corpuscular Hemoglobin 26.4 Mean Corpuscular Hemoglobin Concent 33.3 Red Cell Distribution Width 15.7 Platelet Count 226 Mean Platelet Volume 8.0 Neutrophils (%) (Auto) 67.1 Lymphocytes (%) (Auto) 22.5 Monocytes (%) (Auto) 8.6 Eosinophils (%) (Auto) 1.2 Basophils (%) (Auto) 0.6 Neutrophils # (Auto) 5.7 Lymphocytes # (Auto) 1.9 Monocytes # (Auto) 0.7 Eosinophils # (Auto) 0.1 Basophils # (Auto) 0.1 CBC Comment DIFF FINAL Differential Comment Prothrombin Time 11.3 Prothromb Time International Ratio 1.0 Activated Partial Thromboplast Time 28.5 Urine Opiates Screen POS Urine Barbiturates Screen NEG Urine Amphetamines Screen NEG Urine Benzodiazepines Screen NEG Urine Cocaine Screen POS Urine Cannabinoids Screen NEG Date/Time Source Procedure Growth Status 12/24/16 00:57 Blood Peripheral Aerobic Blood Culture Pending Received 12/24/16 00:57 Blood Peripheral Anaerobic Blood Culture Pending Received 12/24/16 16:33 Sputum Expectorated Sputum Gram Stain Pending Received 12/24/16 16:33 Sputum Expectorated Sputum Sputum Culture Pending Received Result Diagram: 12/24/16 0215 12/24/16 0032 Imaging Last Impressions Chest X-Ray 12/24/161 Signed Impressions: Service Date/Time: Saturday, December 24, 2016 18:12 - CONCLUSION: 1. Marked interval worsening in bilateral patchy airspace disease, right worse than left. 2. Possible small right-sided effusion. 3. Interval placement of a right IJ central venous catheter with the tip projecting over the central venous system. 4. Interval placement of an endotracheal tube with the tip appropriate position above the bindu. Walker Neri MD Assessment and Plan Assessment and Plan Neuro/Psych: Acute toxic metabolic encephalopathy secondary to hypoxia/severe sepsis Chronic pain syndrome Chronic opioid use Peripheral neuropathy Patient is currently on propofol at 40 mics grams per kilogram minutes/fentanyl drip at 200 an hour for sedation/analgesia while intubated Goal of RASS -2 Daily sedation vacation Patient is on hydromorphone 4 mg by mouth every 6 hours. For pain at home Patient is on gabapentin 100 mg by mouth 3 times a day at home for neuropath CV: NSTEMI - likely type II demand ischemia Chronic systolic heart failure Dyslipidemia Currently on normal saline in the 100 cc an hour Continue aspirin 81 mg daily and clopidogrel 75 mg by mouth daily Home medications clonidine 0.1 mg by mouth twice a day for hypertension Home medication is atorvastatin 10 mg by mouth daily for dyslipidemia KIRSTIN 12/22 revealed EF 40%. Global hypokinesis. Resp: Acute hypoxemic hypercapnic respiratory failure secondary to underlying sepsis COPD [facility] /04/23/69 Ventilator bundle Albuterol/ipratropium aerosols every 4 hours with albuterol aerosols every 2 hours when necessary dyspnea Add budesonide 0.5/21 inhalation twice a day Methylprednisolone 40 mg IV every 8 hours Spontaneous breathing trials when clinically indicated GI: Hepatitis C Patient is currently nothing by mouth NGT to LIWS Famotidine 20 mg IV twice a day for GI prophylaxis Docusate sodium/senna 1 tablet twice a day for bowel regimen : Winn catheter has been placed for accurate I's and O's in a critically ill patient Endo: Hyperglycemia Sliding-scale insulin with Accu-Cheks to maintain euglycemia/low regimen with Novulin R Renal: Creatinine currently within normal limits Monitor urine output Accurate I's and O's Heme: Microcytic anemia Monitor CBC daily No indication for transfusion of blood products at this time ID: Enterococcus faecalis aortic valve endocarditis MRSA wound infection Currently on vancomycin, gentamicin per infectious disease Pertinent cultures 12/17 - leg - MRSA 12/17 - blood cultures x4 - Enterococcus faecalis FEN: Replace electrolytes as clinically indicated MSK: Osteoarthritis/osteoporosis PT evaluate and treat Access - Right IJ CVL day 1 placed 12/24 Prophylaxis - GI -famotidine - DVT - SCD/heparin subcutaneous Critical Care: The total critical care time was 35 minutes. Time to perform other separately billable procedures was not included in the critical care time. 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 Care plan discussed and all questions answered. Leif Aldridge MD Dec 24, 2016 18:28
--- NOTE | 2016-12-24 18:28 | PD.PROCEDR ---
Procedure Note Procedure DATE: 12/24/2016 PROCEDURE: Orotracheal intubation INDICATION: Acute respiratory failure DETAILS OF PROCEDURE The patient was placed in optimal position and preoxygenated with 100% FiO2 via bag valve mask. At the start oxygen saturation was 100 %. The patient was administered 20 mg etomidate IV and 50 mg rocuronium IV. I entered the oropharynx with a size 4 GVL glidescope blade and obtained a grade 2 view of the airway. On single attempt a size 8.0 cuffed endotracheal tube was passed through the vocal cords. Correct tube location was confirmed with end tidal CO2 detector and by auscultating over bilateral lung batista. The endotracheal tube was secured with adhesive tape at a depth of 24 cm at the lips. The patient was connected to the ventilator. The patient tolerated the procedure well without any apparent complications. Oxygen saturations were maintained greater than 95% all times. STAT chest x-ray pending at time of dictation. Leif Aldridge MD Dec 24, 2016 18:28
[2016-12-24] MEDS: fentaNYL DRIP 250 ML IV PRN (18:30)
[2016-12-24] MEDS: PROPOFOL 1000 MG/100 ML INJ 100 ML IV PRN ×2 (18:30→23:09)
--- NOTE | 2016-12-24 18:33 | PD.ID.CON ---
History of Present Illness Service ID Consult Requested By Dr Calhoun Reason for Consult Endocarditis Primary Care Physician Meron Guerra MD Diagnoses: History of Present Illness I attempted to see pt yday, but he left AMA He came back today and I was reconsulted Pt is known to me from his previous recent admission on 12/18 . I was consulted back then for + blood clx growing GPC Endocarditis w/u was started , but the pt left AMA next day He came back 2 days ago with chest pain on STEMI alert He has KIRSTIN done and it showed 10 mm aortic valve vegetation [place] Enterocccus fecalis in 07/18 blood clx from Sep 3 Repeat clx from this admission are so far negative @ 2 days Pt was startd on vancomycin, since he is allergic to PCN (throat swelling - per pt), but he walked AMA again He came back again today and I saw him in ER in rm# [id number] today around 1200 He was diagnosed with NSTEMI His blood pressure was low , he was co neck pain that per his is baseline for many years He endorsed fever, chills , nightsweats, bowel habits changes and ? 40 lbs weightloss Review of Systems Constitutional: COMPLAINS OF: Fatigue, Fever, Weight loss (40 lbs), Chills, Night Sweats Gastrointestinal: COMPLAINS OF: Constipation Musculoskeletal: COMPLAINS OF: Neck pain Except as stated in HPI: all other systems reviewed are Neg Past Family Social History Allergies: Coded Allergies: penicillin G (Unverified Allergy, Intermediate, SOB, RASH, 12/24/16) Penicillins (Verified Allergy, Unknown, 12/24/16) *MDRO Multi-Drug Resistant Organism (Verified Adverse Reaction, Unknown, ) MRSA (wound) - 12/20/2012; (leg) - 11/01/15 Past Medical History History of CVA dyslipidemia COPD Hepatitis, C Past Surgical History neck surgery in 1989 related to accident Active Ordered Medications Medications where reviewed in EMR Antibiotics Include: vancomcyin Family History Not aware of significant disease in the family Social History Smoke daily for last over 20 years, 6 sigs/da Alcohol - quit 20 yrs ago + illicit abuse,including + DOA for cocaine on 12/18 states he quit IVDU 1 year ago Physical Exam Vital Signs Vital Signs Date Time Temp Pulse Resp B/P (MAP) Pulse Ox O2 Delivery O2 Flow Rate FiO2 12/24/16 17:14 28 160/90 (113) 89 12/24/16 17:13 136 27 171/98 (122) 88 12/24/16 16:18 134 22 98 12/24/16 12:04 93 12/24/16 11:07 99.2 83 16 95/54 (68) 96 12/24/16 08:26 75 104/54 (71) 12/24/16 08:07 69 12/24/16 07:26 98.9 70 17 80/50 (60) 94 12/24/16 04:52 58 16 94/56 (69) 97 Room Air 12/24/16 04:22 12/24/16 04:20 85/50 (62) 12/24/16 03:10 66 16 98/68 (78) 99 Room Air 12/24/16 02:00 72 16 85/53 (64) 97 Room Air 12/24/16 01:00 76 16 92/55 (67) 96 Room Air 12/24/16 00:33 98.0 91 18 109/56 (73) 100 Physical Exam CONSTITUTIONAL/GENERAL: This is a thin undernourished deshevelled patient, in no apparent distress. TUBES/LINES/DRAINS: SKIN: No jaundice, Sacttered nodular lesions b/l LE and LUE and healing crusted - look better than lesions Skin temperature appropriate. Not diaphoretic. HEAD: Atraumatic. Normocephalic. EYES: Pupils equal and round and reactive. Extraocular motions intact. No scleral icterus. No injection or drainage. Fundi not examined. ENT: Hearing grossly normal. Nose without bleeding or purulent drainage. Oral mucosae without visible erythema, exudates, masses, or lesions. Poor dentition NECK: Trachea midline. Supple, nontender. Tender to palpation CARDIOVASCULAR: Regular rate and rhythm without murmurs, gallops, or rubs. No JVD. Peripheral pulses symmetric. RESPIRATORY/CHEST: Symmetric, unlabored respirations. Clear to auscultation. Breath sounds equal bilaterally. No wheezes, rales, or rhonchi. GASTROINTESTINAL: Abdomen soft, non-tender, nondistended. No hepato-splenomegaly , or palpable masses. No guarding. Bowel sounds present. GENITOURINARY: Without palpable bladder distension. . MUSCULOSKELETAL: Extremities without clubbing, cyanosis, or edema. No joint tenderness or effusion noted. No calf tenderness. No mottling or clubbing. LYMPHATICS: No palpable cervical or supraclavicular adenopathy. NEUROLOGICAL: Awake and alert. Motor and sensory grossly within normal limits. Follows commands. Cognitively sharp. Moves all extremities. PSYCHIATRIC: No obvious anxiety/depression. no apparent hallucinations or other psychotic thought process. Laboratory Laboratory Tests Test 12/24/16 00:32 12/24/16 02:15 12/24/16 03:05 Blood Urea Nitrogen 17 Creatinine 0.97 Random Glucose 123 Calcium Level 7.7 Magnesium Level 2.0 Sodium Level 138 Potassium Level 3.8 Chloride Level 106 Carbon Dioxide Level 23.7 Anion Gap 8 Estimat Glomerular Filtration Rate 79 Total Creatine Kinase 42 Troponin I 0.14 White Blood Count 8.6 Red Blood Count 4.15 Hemoglobin 10.9 Hematocrit 32.8 Mean Corpuscular Volume 79.2 Mean Corpuscular Hemoglobin 26.4 Mean Corpuscular Hemoglobin Concent 33.3 Red Cell Distribution Width 15.7 Platelet Count 226 Mean Platelet Volume 8.0 Neutrophils (%) (Auto) 67.1 Lymphocytes (%) (Auto) 22.5 Monocytes (%) (Auto) 8.6 Eosinophils (%) (Auto) 1.2 Basophils (%) (Auto) 0.6 Neutrophils # (Auto) 5.7 Lymphocytes # (Auto) 1.9 Monocytes # (Auto) 0.7 Eosinophils # (Auto) 0.1 Basophils # (Auto) 0.1 CBC Comment DIFF FINAL Differential Comment Prothrombin Time 11.3 Prothromb Time International Ratio 1.0 Activated Partial Thromboplast Time 28.5 Urine Opiates Screen POS Urine Barbiturates Screen NEG Urine Amphetamines Screen NEG Urine Benzodiazepines Screen NEG Urine Cocaine Screen POS Urine Cannabinoids Screen NEG Date/Time Source Procedure Growth Status 12/24/16 00:57 Blood Peripheral Aerobic Blood Culture Pending Received 12/24/16 00:57 Blood Peripheral Anaerobic Blood Culture Pending Received 12/24/16 16:33 Sputum Expectorated Sputum Gram Stain Pending Received 12/24/16 16:33 Sputum Expectorated Sputum Sputum Culture Pending Received Result Diagram: 12/24/16 0215 12/24/16 0032 Imaging Last Impressions Chest X-Ray 12/24/16 0053 Signed Impressions: Service Date/Time: Saturday, December 24, 2016 01:08 - CONCLUSION: Mild atelectasis and small effusion of the right lung base. Jarred Agustin MD Course parently developped hypoxia soon after I left and was admitted to ICU Assessment and Plan Assessment and Plan Enterococcus fecalis aortic valve endocarditis - admists to h/o IVDU ? H/o endocarditis, per pt account - not confirmed by recods Multipple skin lesions sugg of skin abscess HCV Neck pain Pulmonary infiltrate, hil;ar LAD High grade PCN alletrgy (throat edema, but treports tolerating Keflex OK) New bowel habit change and reportedly precancerous polips 4 yrs ago cont vancomycin + gentamycin fu repeat blood clx fu closely both vanco and gentamycin levels consider MRI C spine fu repeat blood clx further rec's to follow arcelia paniagua RN Discussed Condition With Tiff Talavera MD Dec 24, 2016 18:33
--- NOTE | 2016-12-24 18:38 | RADRPT ---
EXAM DATE/TIME: 12/24/2016 18:12 [facility] COMPARISON: CHEST SINGLE AP, December 24, 2016, 1:08. INDICATIONS : Central line placement. MEDICAL HISTORY : Endocarditis SURGICAL HISTORY : None. ENCOUNTER: Subsequent ACUITY: 1 day PAIN SCORE: 0/10 LOCATION: Bilateral chest FINDINGS: A single view of the chest demonstrates marked interval worsening in bilateral airspace disease with patchy infiltrates bilaterally. Possible small effusion on the right. Heart size is normal. Interval placement of an endotracheal tube which is appropriate position above the bindu. Right IJ central ve nous catheter with the tip projecting over the central venous system. Anterior fixation of the lower cervical spine. CONCLUSION: 1. Marked interval worsening in bilateral patchy airspace disease, right worse than left. 2. Possible small right-sided effusion. 3. Interval placement of a right IJ central venous catheter with the tip projecting over the central venous system. 4. Interval placement of an endotracheal tube with the tip appropriate position above the bindu. Walker Neri MD on December 24, 2016 at 18:34 Board Certified Radiologist. This report was verified electronically.
[2016-12-24] MEDS ORDERED: Gentamicin Consult Pharmacy 1 EA OTHER SCH (18:45)
[2016-12-24] MEDS ORDERED: CHLORHEXIDINE GLUCONATE 2 % 1 PACK (2 CLOTHS) TOP PRN (19:00)
[2016-12-24] MEDS ORDERED: ONDANSETRON HCL 4 MG/2 ML VIAL IV PUSH PRN (19:00)
[2016-12-24] MEDS ORDERED: DEXTROSE 50% IN WATER 50 ML VIAL(D50) IV PRN (19:00)
[2016-12-24] MEDS ORDERED: MISCELLANEOUS NURSING INFORMATION XX SCH (19:00)
[2016-12-24] MEDS ORDERED: GLUCAGON 1 MG/ML VIAL OTHER PRN (19:00)
[2016-12-24 19:04] LABS: BLOOD GAS BASE EXCESS -2.4 mmol/L (-2-2); BLOOD GAS CARBOXYHEMOGLOBIN 0.9 % (0-4); BLOOD GAS HCO3 25 mmol/L (22-26); BLOOD GAS METHEMOGLOBIN 0.9 % (0-2); BLOOD GAS O2 HGB SATURATION 91 % (90-100); BLOOD GAS OXYGEN CONTENT 16.4 Vol % (12.0-20.0); BLOOD GAS PCO2 72 mmHg (38-42); BLOOD GAS PO2 85 mmHg (61-120); BLOOD GAS TOTAL HGB 12.8 G/DL (12.0-16.0); CRITICAL VALUE YES; OXYGEN DEVICE VENTILATOR; TEMP CORR TO 98.6
[2016-12-24 19:05] LABS: DRAW SITE RT RADIAL; FIO2 70 %; NUMBER OF ARTERIAL PUNCTURES 1; STAT YES; ULNAR PULSE PRESENT; VENT SETTINGS PRVC /AC
[2016-12-24] MEDS ORDERED: GENTAMICIN INJ 130 MG in SODIUM CHLORIDE 0.9% INJ 100 ML IV ONE (20:00)
[2016-12-24] MEDS ORDERED: RESP: ALBUTEROL 2.5 MG/IPRATROPIUM 0.5 MG NEB (SCH) NEB (20:00)
[2016-12-24] MEDS: RESP: ALBUTEROL 2.5 MG/IPRATROPIUM 0.5 MG NEB (SCH) NEB (20:13)
[2016-12-24] MEDS ORDERED: BUDESONIDE-FORMOTEROL 160/4.5 MCG INHALER INH SCH (21:00)
[2016-12-24] MEDS ORDERED: guaiFENesin E.R. 600 MG TAB PO SCH (21:00)
[2016-12-24] MEDS: DOCUSATE SODIUM 50 MG/SENNA 8.6 MG TAB PO SCH (21:00)
[2016-12-24] MEDS ORDERED: IOHEXOL 350 MG/ML 10 ML VIAL (for RAD DIAG) IVCONTRAST ONE (21:13)
--- NOTE | 2016-12-24 21:30 | RADRPT ---
EXAM DATE/TIME: 12/24/2016 21:10 [facility] COMPARISON: CHEST SINGLE AP, December 24, 2016, 18:12. CT PULMONARY ANGIOGRAM, December 18, 2016, 17:50. INDICATIONS : Shortness of breath. IV CONTRAST: 85 cc Omnipaque 350 (iohexol) IV RADIATION DOSE: 23.38 CTDIvol (mGy) MEDICAL HISTORY : Hypertension. Hepatitis C. CVA. Substance abuse. SURGICAL HISTORY : Appendectomy. Cholecystectomy. ENCOUNTER: Initial ACUITY: 1 day PAIN SCALE: Non-responsive LOCATION: Bilateral chest TECHNIQUE: Volumetric scanning of the chest was performed using a pulmonary embolism protocol MIP images were re constructed. Using automated exposure control and adjustment of the mA and/or kV according to patien t size, radiation dose was kept as low as reasonably achievable to obtain optimal diagnostic quality images. DICOM format image data is available electronically for review and comparison. Follow-up recommendations for detected pulmonary nodules are based at a minimum on nodule size and pa tient risk factors according to Fleischner Society Guidelines. FINDINGS: PULMONARY ARTERIES: No filling defects are seen in the pulmonary arteries through the segmental level. LUNGS: Significant progression of bilateral patchy consolidated airspace disease has occurred scratch since the previous study . PLEURAE: The lower bilateral pleural effusions are identified. MEDIASTINUM: There is good visualization of the great vessels of the middle mediastinum. No evidence of mediastin al or hilar adenopathy/mass. MUSCULOSKELETAL: Within normal limits for patient age. MISCELLANEOUS: Endotracheal and nasogastric tube remain in position. CONCLUSION: 1. Marked interval worsening of bilateral patchy airspace disease. 2. Enlarging pleural effusions. 3. No evidence of pulmonary embolism. 4. Stable position of support devices. Cholo Nixon MD on December 24, 2016 at 21:22 Board Certified Radiologist. This report was verified electronically.
[2016-12-24] MEDS: CHLORHEXIDINE GLUCONATE 2 % 1 PACK (2 CLOTHS) TOP SCH (23:04)
[2016-12-24] MEDS: FAMOTIDINE 20 MG/2 ML VIAL IV PUSH SCH (23:06)
[2016-12-24] MEDS: CHLORHEXIDINE 0.12% (ORAL KIT) 15 ML CUP MT SCH (23:07)
[2016-12-25] VITALS (18 sets, daily range): BP systolic 106–120; BP diastolic 58–76; PULSE 46–65; RESP 20; TEMP 97.8–98.4; O2SAT 96–100
[2016-12-25] MEDS ORDERED: methylPREDNISolone SOD SUCC 40 MG/1 ML VIAL IV PUSH SCH
[2016-12-25] MEDS: RESP: ALBUTEROL 2.5 MG/IPRATROPIUM 0.5 MG NEB (SCH) NEB ×7 (00:01→23:15)
[2016-12-25] MEDS: INSULIN NovoLIN REGULAR SUPPLEMENTAL SCALE SQ SCH ×5 (01:08→23:48)
[2016-12-25] MEDS: methylPREDNISolone SOD SUCC 40 MG/1 ML VIAL IV PUSH SCH ×4 (01:09→23:48)
[2016-12-25] MEDS: VANCOMYCIN INJ 1,250 MG in SODIUM CHLOR 0.9% 250 ML INJ 250 ML IV SCH ×3 (02:41→23:51)
[2016-12-25] MEDS: RESP: BUDESONIDE 0.5 MG/2 ML NEB NEB SCH ×3 (03:57→19:42)
[2016-12-25 04:26] LABS: AUTOMATED NEUTROPHIL # 15.7 TH/MM3 (1.8-7.7); BASOPHIL # 0.1 TH/MM3 (0-0.2); BASOPHIL % 0.3 % (0.0-2.0); HEMATOCRIT 36.6 % (39.0-51.0); HEMO FLAGS DIFF FINAL; LYMPH % 6.1 % (9.0-44.0); MEAN CELL VOLUME 80.2 FL (80.0-100.0); MEAN CORPUSCULAR HGB CONC 31.2 % (32.0-36.0); MONO % 2.2 % (0.0-8.0); NEUT % 91.4 % (16.0-70.0); PLATELET COUNT 412 TH/MM3 (150-450); RED BLOOD COUNT 4.57 MIL/MM3 (4.50-5.90); RED CELL DISTRIBUTION WIDTH 15.8 % (11.6-17.2); WHITE BLOOD COUNT 17.2 TH/MM3 (4.0-11.0)
[2016-12-25 04:40] LABS: APTT (PATIENT) 26.8 SEC (24.3-30.1); PROTHROMBIN TIME - PATIENT 11.2 SEC (9.8-11.6)
[2016-12-25 04:51] LABS: ALT (GPT) 27 U/L (12-78); ANION GAP 10 MEQ/L (5-15); AST (GOT) 46 U/L (15-37); BICARBONATE 25.4 MEQ/L (21.0-32.0); BLOOD UREA NITROGEN 19 MG/DL (7-18); CHLORIDE 105 MEQ/L (98-107); GLOMERULAR FILTRATION RATE 81 ML/MIN (>89); MAGNESIUM 2.2 MG/DL (1.5-2.5); SODIUM (NA) 140 MEQ/L (136-145)
[2016-12-25 04:53] LABS: ALKALINE PHOSPHATASE 190 U/L (45-117); TOTAL BILIRUBIN ADULT 0.5 MG/DL (0.2-1.0)
[2016-12-25 04:56] LABS: BLOOD GAS BASE EXCESS -2.3 mmol/L (-2-2); BLOOD GAS CARBOXYHEMOGLOBIN 1.1 % (0-4); BLOOD GAS HCO3 22 mmol/L (22-26); BLOOD GAS METHEMOGLOBIN 0.8 % (0-2); BLOOD GAS O2 HGB SATURATION 98 % (90-100); BLOOD GAS OXYGEN CONTENT 16.1 Vol % (12.0-20.0); BLOOD GAS PCO2 37 mmHg (38-42); BLOOD GAS PO2 182 mmHg (61-120); BLOOD GAS TOTAL HGB 11.4 G/DL (12.0-16.0); CRITICAL VALUE NO; OXYGEN DEVICE VENTILATOR; TEMP CORR TO 98.6
[2016-12-25 04:57] LABS: DRAW SITE RT RADIAL; FIO2 50 %; NUMBER OF ARTERIAL PUNCTURES 1; STAT YES; ULNAR PULSE PRESENT; VENT SETTINGS PRVC / AC /
[2016-12-25] MEDS ORDERED: TERBUTALINE INJ 1 MG/ML AMP SQ PRN (06:45)
--- NOTE | 2016-12-25 06:45 | HHI.CCPN ---
Subjective Remarks/Hospital Course 61-year-old male. Date of admission 12/24/2016. Date of consultation 12/24/2016. Past medical history includes left cerebellar CVA Hepatitis C, CAD, hypertension, dyslipidemia, COPD, peripheral neuropathy, microcytic anemia, Tobacco Abuse and IVDU with a positive toxicology screen for cocaine who was brought to the ER by EMS secondary to complaints of SOB starting earlier tonight patient has been admitted 12/17 for NSTEMI and +E. Faecalis / bacteremia, s/p eval by ID, on Vanc however LEFT AMA 12/19/16 prior to completion of treatment. Re-admitted 12/21/16 w/ STEMI, s/p KIRSTIN 12/22/[address] Paredes, found to have AV Vegetation 7 x 10 mm on left coronary cusp, however LEFT AMA once again. Blood Cultures 12/22/16 negative x2. O2 sat 100% on RA, Afebrile. CBC at baseline. Chemistry essentially unremarkable. Trop 0.14, previously 0.25 on 12/21/16. CXR w/ small right effusion In ED, patient became more combative a short of breath requiring 100% nonrebreather. Patient was sent to room 1306 and was emergently intubated in the floor with 20 mg etomidate and 50 mg rocuronium. Subjective 12/25: Afebrile overnight. Arousable the ventilator and follows commands. Plan for MRI C-spine today. Tube feeds to be initiated. No bowel movement today. Objective Vital Signs Date Time Temp Pulse Resp B/P (MAP) Pulse Ox O2 Delivery O2 Flow Rate FiO2 12/25/16 06:00 55 12/25/16 05:05 100 40 12/25/16 04:00 98.1 20 120/76 (91) 12/24/16 17:25 Non-Rebreather 12/24/16 17:25 12.00 Intake and Output 12/25/16 12/25/16 12/26/16 08:00 16:00 00:00 Intake Total 1523 ml Output Total 2325 ml Balance -802 ml Result Diagram: 12/25/16 0410 12/25/16 041 Other Results Microbiology Date/Time Source Procedure Growth Status 12/24/16 20:20 Blood Peripheral Aerobic Blood Culture Pending Received 12/24/16 20:20 Blood Peripheral Anaerobic Blood Culture Pending Received 12/24/16 16:33 Sputum Expectorated Sputum Gram Stain Pending Received 12/24/16 16:33 Sputum Expectorated Sputum Sputum Culture Pending Received Imaging Last Impressions Chest X-Ray 12/24/16 1811 Signed Impressions: Service Date/Time: Saturday, December 24, 2016 18:12 - CONCLUSION: 1. Marked interval worsening in bilateral patchy airspace disease, right worse than left. 2. Possible small right-sided effusion. 3. Interval placement of a right IJ central venous catheter with the tip projecting over the central venous system. 4. Interval placement of an endotracheal tube with the tip appropriate position above the bindu. Walker Neri MD CT Angiography 12/24/16 0000 Signed Impressions: Service Date/Time: Saturday, December 24, 2016 21:10 - CONCLUSION: 1. Marked interval worsening of bilateral patchy airspace disease. 2. Enlarging pleural effusions. 3. No evidence of pulmonary embolism. 4. Stable position of support devices. Cholo Nixon MD Objective Remarks GENERAL: 61-year-old male, critically ill currently orotracheally intubated SKIN: Warm and dry with scattered nodular lesions involving left upper and bilateral lower extremities well-healed/crusted yellowish HEAD: Atraumatic. Normocephalic. EYES: Pupils equal and round around 2 mm bilaterally and reactive. No scleral icterus. No injection or drainage. ENT: No nasal bleeding or discharge. Mucous membranes pink and moist. Orotracheally intubated NECK: Trachea midline. No JVD. Right IJ is clean dry and intact without erythema CARDIOVASCULAR: Tachycardic, RR. S1, S2. No S4. Without murmur RESPIRATORY: Clear to auscultation. Breath sounds equal bilaterally. GASTROINTESTINAL: Abdomen soft, non-tender, nondistended. Hypoactive bowel sounds are appreciated MUSCULOSKELETAL: Extremities without significant peripheral edema. No obvious deformities. NEUROLOGICAL: Early following simple commands on the ventilator. Prior to intubation was awake and alert. Moving all 4 extremity spontaneously. Not any focal deficit Urinary Catheter: Yes Assessment to: Continue Winn insert reason: Prolonged Immobilization Vascular Central Line Catheter: Yes Assessment to: Continue Date of Insertion: Dec 24, 2016 Line: Central Venous Catheter Side: Right Location: Internal, Jugular A/P Assessment and Plan Neuro/Psych: Acute toxic metabolic encephalopathy secondary to hypoxia/severe sepsis Chronic pain syndrome Chronic opioid use Peripheral neuropathy Patient is currently on propofol at 25 mics grams per kilogram minutes/fentanyl drip at 100 an hour for sedation/analgesia while intubated Goal of RASS -2 Daily sedation vacation Patient is on hydromorphone 4 mg by mouth every 6 hours. For pain at home Patient is on gabapentin 100 mg by mouth 3 times a day at home for neuropath CV: NSTEMI - likely type II demand ischemia Chronic systolic heart failure Dyslipidemia Lactic acidosis Started on phenylephrine drip at 50 grams per minute due to hypotension. We' ll switched to norepinephrine due to bradycardia Currently on normal saline in the 100 cc an hour Continue aspirin 81 mg daily and clopidogrel 75 mg by mouth daily Home medications clonidine 0.1 mg by mouth twice a day for hypertension Home medication is atorvastatin 10 mg by mouth daily for dyslipidemia. Currently on pravastatin 20 mg daily KIRSTIN 12/22 revealed EF 40%. Global hypokinesis. Serial lactates until clear Resp: Acute hypoxemic hypercapnic respiratory failure secondary to underlying sepsis COPD PRVC 20/550///50 Ventilator bundle Albuterol/ipratropium aerosols every 4 hours with albuterol aerosols every 2 hours when necessary dyspnea Add budesonide 0.5/21 inhalation twice a day Methylprednisolone 40 mg IV every 8 hours Spontaneous breathing trials when clinically indicated GI: Hepatitis C Patient is currently nothing by mouth. Start Jevity 1.5 goal 55 cc an hour Famotidine 20 mg IV twice a day for GI prophylaxis Docusate sodium/senna 1 tablet twice a day for bowel regimen : Winn catheter has been placed for accurate I's and O's in a critically ill patient Endo: Hyperglycemia Sliding-scale insulin with Accu-Cheks to maintain euglycemia/low regimen with Novulin R Renal: Creatinine currently within normal limits Monitor urine output Accurate I's and O's Heme: Microcytic anemia Leukocytosis Monitor CBC daily No indication for transfusion of blood products at this time ID: Enterococcus faecalis aortic valve endocarditis MRSA wound infection Currently on vancomycin, gentamicin per infectious disease Pertinent cultures 12/24 - blood cultures 3 and sputum - pending 12/17 - leg - MRSA 12/17 - blood cultures x4 - Enterococcus faecalis FEN: Replace electrolytes as clinically indicated MSK: Osteoarthritis/osteoporosis PT evaluate and treat Access - Right IJ CVL day 2 placed 12/24 Prophylaxis - GI -famotidine - DVT - SCD/heparin subcutaneous Critical Care: The total critical care time was 35 minutes. Time to perform other separately billable procedures was not included in the critical care time. Leif Aldridge MD Dec 25, 2016 06:44
[2016-12-25] MEDS: PROPOFOL 1000 MG/100 ML INJ 100 ML IV PRN (07:31)
[2016-12-25] MEDS: NOREPINEPHRINE INJ 4 MG in SODIUM CHLOR 0.9% 250 ML INJ 246 ML IV PRN ×2 (07:31→19:47)
[2016-12-25] MEDS: CLOPIDOGREL 75 MG TAB PO SCH (08:04)
[2016-12-25] MEDS: DOCUSATE SODIUM 50 MG/SENNA 8.6 MG TAB PO SCH ×2 (08:04→19:49)
[2016-12-25] MEDS: ARTIFICIAL TEARS OPTH SOLN 15 ML BTL EACH EYE SCH ×3 (08:04→18:00)
[2016-12-25] MEDS: PRAVASTATIN SOD 40 MG TAB PO SCH (08:05)
[2016-12-25] MEDS: ASPIRIN 81 MG CHEW TAB CHEW SCH (08:05)
[2016-12-25] MEDS: GABAPENTIN 100 MG CAP PO SCH ×3 (08:05→18:27)
[2016-12-25] MEDS: SODIUM CHLORIDE 0.9% FLUSH 10 ML FLUSH IVF SCH (08:05)
[2016-12-25] MEDS: CHLORHEXIDINE 0.12% (ORAL KIT) 15 ML CUP MT SCH ×2 (08:05→19:50)
[2016-12-25] MEDS: SODIUM CHLORIDE 0.9% FLUSH 10 ML FLUSH IV FLUSH SCH ×4 (08:06→19:48)
[2016-12-25] MEDS: GENTAMICIN INJ 120 MG in SODIUM CHLORIDE 0.9% INJ 100 ML IV SCH ×2 (08:07→21:25)
[2016-12-25] MEDS: BENEPROTEIN POWDER 1 PACK G-TUBE SCH ×3 (08:07→18:00)
[2016-12-25] MEDS: FAMOTIDINE 20 MG/2 ML VIAL IV PUSH SCH ×2 (08:10→19:49)
[2016-12-25] MEDS: SODIUM CHLOR 0.9% 1000 ML INJ 1,000 ML IV SCH ×2 (08:16→19:50)
[2016-12-25] MEDS ORDERED: TIOTROPIUM BROMIDE 18 MCG INH INH SCH (09:00)
[2016-12-25] MEDS: MIDAZOLAM 100 MG/100 ML INJ 100 ML IV PRN ×2 (10:22→19:48)
[2016-12-25] MEDS: fentaNYL DRIP 250 ML IV PRN (10:31)
--- NOTE | 2016-12-25 11:19 | EKG ---
Date Performed: 12/24/2016 Time Performed: 19:47:03 PTAGE: 61 years EKG: Sinus rhythm WITH OCCASIONAL VENTRICULAR PREMATURE COMPLEXES WITH OCCASIONAL SUPRAVENTRICULAR PREMATURE COMPLEXES SEPTAL MYOCARDIAL INFARCTION , PROBABLY RECENT ACUTE MO PREVIOUS TRACING : 12/24/2016 00.35 Compared to prior tracing no significant change DOCTOR: Belkys Soares Interpretating Date/Time 12/25/2016 11:17:28
[2016-12-25] MEDS ORDERED: PHARMACY ORDERED LAB ONE ×4 (12:45→20:30)
[2016-12-25] MEDS: HEPARIN SODIUM - SQ 10,000 UNITS/ML VIAL SQ SCH ×2 (12:57→21:25)
--- NOTE | 2016-12-25 15:13 | HHI.IDPN ---
Subjective Subjective Remarks pt is now intubated 2/2 hypercapnic/hypoxic resp failure he is afebrile now, earlier had a fever up to 100.9 growing Staph epi from the blood and nl resp in the sputum Antibiotics vanco gentamycin Allergies: Coded Allergies: penicillin G (Unverified Allergy, Intermediate, SOB, RASH, 12/24/16) Penicillins (Verified Allergy, Unknown, 12/24/16) *MDRO Multi-Drug Resistant Organism (Verified Adverse Reaction, Unknown, ) MRSA (wound) - 12/20/2012; (leg) - 11/01/15 Objective . Vital Signs Date Time Temp Pulse Resp B/P (MAP) Pulse Ox O2 Delivery O2 Flow Rate FiO2 12/25/16 14:00 60 12/25/16 12:00 97.9 62 20 106/58 (74) 100 12/25/16 12:00 62 12/25/16 12:00 40 12/25/16 11:44 100 40 12/25/16 10:00 60 12/25/16 08:00 98.4 56 20 107/58 (74) 100 12/25/16 08:00 56 12/25/16 07:46 100 35 12/25/16 07:31 53 108/56 12/25/16 06:00 55 12/25/16 05:05 100 40 12/25/16 04:01 100 50 12/25/16 04:00 64 12/25/16 04:00 98.1 64 20 120/76 (91) 96 12/25/16 02:00 46 12/25/16 00:00 51 12/25/16 00:00 98.0 51 20 115/59 (77) 100 12/24/16 23:56 100 60 12/24/16 23:00 52 12/24/16 22:00 56 12/24/16 21:15 100 100 12/24/16 21:00 100 100 12/24/16 20:30 78 77/48 12/24/16 20:01 99 70 12/24/16 20:00 78 12/24/16 20:00 97.9 78 16 77/48 (58) 100 12/24/16 19:08 94 70 12/24/16 18:30 100.9 138 16 150/98 (115) 94 Manual Cuff/Auscultation 12/24/16 17:50 98 70 12/24/16 17:25 99 Non-Rebreather 12/24/16 17:25 98 12.00 12/24/16 17:14 28 160/90 (113) 89 12/24/16 17:13 136 27 171/98 (122) 88 12/24/16 16:29 99 Nasal Cannula 2.00 12/24/16 16:18 134 22 98 12/25/16 12/25/16 12/26/16 15:00 23:00 07:00 Intake Total 1814 ml Balance 1814 ml Intake IV Total 1814 ml . Laboratory Tests Test 12/24/16 02:15 12/25/16 04:10 White Blood Count 8.6 TH/MM3 17.2 TH/MM3 Red Blood Count 4.15 MIL/MM3 4.57 MIL/MM3 Hemoglobin 10.9 GM/DL 11.4 GM/DL Hematocrit 32.8 % 36.6 % Mean Corpuscular Volume 79.2 FL 80.2 FL Mean Corpuscular Hemoglobin 26.4 PG 25.0 PG Mean Corpuscular Hemoglobin Concent 33.3 % 31.2 % Red Cell Distribution Width 15.7 % 15.8 % Platelet Count 226 TH/MM3 412 TH/MM3 Mean Platelet Volume 8.0 FL 7.6 FL Neutrophils (%) (Auto) 67.1 % 91.4 % Lymphocytes (%) (Auto) 22.5 % 6.1 % Monocytes (%) (Auto) 8.6 % 2.2 % Eosinophils (%) (Auto) 1.2 % 0.0 % Basophils (%) (Auto) 0.6 % 0.3 % Neutrophils # (Auto) 5.7 TH/MM3 15.7 TH/MM3 Lymphocytes # (Auto) 1.9 TH/MM3 1.0 TH/MM3 Monocytes # (Auto) 0.7 TH/MM3 0.4 TH/MM3 Eosinophils # (Auto) 0.1 TH/MM3 0.0 TH/MM3 Basophils # (Auto) 0.1 TH/MM3 0.1 TH/MM3 CBC Comment DIFF FINAL DIFF FINAL Differential Comment Laboratory Tests Test 12/24/16 00:32 12/24/16 20:25 12/25/16 04:10 Blood Urea Nitrogen 17 MG/DL 19 MG/DL Creatinine 0.97 MG/DL 0.95 MG/DL Random Glucose 123 MG/DL 152 MG/DL Calcium Level 7.7 MG/DL 7.9 MG/DL Magnesium Level 2.0 MG/DL 2.2 MG/DL Sodium Level 138 MEQ/L 140 MEQ/L Potassium Level 3.8 MEQ/L 4.0 MEQ/L Chloride Level 106 MEQ/L 105 MEQ/L Carbon Dioxide Level 23.7 MEQ/L 25.4 MEQ/L Anion Gap 8 MEQ/L 10 MEQ/L Estimat Glomerular Filtration Rate 79 ML/MIN 81 ML/MIN Total Creatine Kinase 42 U/L 44 U/L 37 U/L Troponin I 0.14 NG/ML 0.52 NG/ML 0.52 NG/ML Total Protein 6.7 GM/DL Albumin 2.6 GM/DL Phosphorus Level 3.8 MG/DL Alkaline Phosphatase 190 U/L Aspartate Amino Transf (AST/SGOT) 46 U/L Alanine Aminotransferase (ALT/SGPT) 27 U/L Total Bilirubin 0.5 MG/DL Lactic Acid Level 3.3 mmol/L Microbiology Date/Time Source Procedure Growth Status 12/24/16 20:20 Blood Peripheral Aerobic Blood Culture - Preliminary NO GROWTH IN 1 DAY Resulted 12/24/16 20:20 Blood Peripheral Anaerobic Blood Culture - Final QNS - SEE AEROBE REPORT Resulted 12/24/16 00:57 Blood Peripheral Aerobic Blood Culture - Preliminary NO GROWTH IN 1 DAY Resulted 12/24/16 00:57 Anaerobic Blood Culture - Preliminary Staphylococcus Epidermidis Resulted 12/24/16 00:32 Blood Peripheral Aerobic Blood Culture - Preliminary NO GROWTH IN 1 DAY Resulted 12/24/16 00:32 Blood Peripheral Anaerobic Blood Culture - Preliminary NO GROWTH IN 1 DAY Resulted 12/24/16 16:33 Sputum Expectorated Sputum Gram Stain - Final Resulted 12/24/16 16:33 Sputum Expectorated Sputum Sputum Culture - Preliminary HEAVY GROWTH NORMAL RESPIRATORY TOÑA... Resulted Imaging Last Impressions Chest X-Ray 12/24/16 1811 Signed Impressions: Service Date/Time: Saturday, December 24, 2016 18:12 - CONCLUSION: 1. Marked interval worsening in bilateral patchy airspace disease, right worse than left. 2. Possible small right-sided effusion. 3. Interval placement of a right IJ central venous catheter with the tip projecting over the central venous system. 4. Interval placement of an endotracheal tube with the tip appropriate position above the bindu. Walker Neri MD CT Angiography 12/24/16 0000 Signed Impressions: Service Date/Time: Saturday, December 24, 2016 21:10 - CONCLUSION: 1. Marked interval worsening of bilateral patchy airspace disease. 2. Enlarging pleural effusions. 3. No evidence of pulmonary embolism. 4. Stable position of support devices. Cholo Nixon MD Physical Exam CONSTITUTIONAL/GENERAL: This is a thin undernourished deshevelled patient, in no apparent distress. now sedated[facility] TUBES/LINES/DRAINS: SKIN: No jaundice, Sacttered nodular lesions b/l LE and LUE and healing crusted - look better than lesions Skin temperature appropriate. Not diaphoretic. EYES: Pupils equal and round and reactive. ENT: H Oral mucosae without visible erythema, exudates, masses, or lesions. Poor dentition NECK: Trachea midline. CARDIOVASCULAR: Regular rate and rhythm without murmurs, gallops, or rubs. No JVD. Peripheral pulses symmetric. RESPIRATORY/CHEST: Symmetric, unlabored respirations. Clear to auscultation. Breath sounds equal bilaterally. No wheezes, rales, or rhonchi. GASTROINTESTINAL: Abdomen soft, non-tender, nondistended. No hepato-splenomegaly , or palpable masses. No guarding. Bowel sounds present. GENITOURINARY: Without palpable bladder distension. .Winn in place with clear urine MUSCULOSKELETAL: Extremities without clubbing, cyanosis, or edema. NEUROLOGICAL: sedated PSYCHIATRIC: unable to assess 2/2 sedation Assessment & Plan Remarks Enterococcus fecalis aortic valve endocarditis - admists to h/o IVDU ? H/o endocarditis, per pt account - not confirmed by recods Multipple skin lesions sugg of skin abscess HCV Neck pain Pulmonary infiltrate, hil;ar LAD High grade PCN alletrgy (throat edema, but treports tolerating Keflex OK) New bowel habit change and reportedly precancerous polips 4 yrs ago ? PNA Acute VDRF Staph epi bactermia, low grade 1/4: ? contamination is more likley Critically ill, unstable cont vancomycin + gentamycin fu repeat blood clx fu closely both vanco and gentamycin levels MRI C spine fu repeat blood clx add levaquin for PNA dw Dr Oly Donohue,Tiff Hyatt MD Dec 25, 2016 15:12
[2016-12-25] MEDS ORDERED: GADODIAMIDE PF 287 MG/ML 5 ML VIAL (for RAD MRI) IVCONTRAST ONE (17:13)
--- NOTE | 2016-12-25 17:34 | RADRPT ---
EXAM DATE/TIME: 12/25/2016 16:11 [facility] COMPARISON: No previous studies available for comparison. INDICATIONS : IVDA with endocarditis and neck pain. CONTRAST: 13 cc Omniscan (gadodiamide) IV MEDICAL HISTORY : Hepatitis C. CAD SURGICAL HISTORY : Appendectomy. Fusion, cervical. Cholecystectomy. ENCOUNTER: Subsequent ACUITY: 3 day PAIN SCORE: Nonresponsive. LOCATION: neck TECHNIQUE: Multiplanar, multisequence MRI examination of the cervical spine was performed. FINDINGS: VERTEBRAE: Normal vertebral body height. Homogeneous marrow signal. There is fusion with plate and screws anter iorly at C5-6. ALIGNMENT: No evidence of subluxation. CORD: Normal configuration and signal. POST FOSSA: The cerebellar tonsils are normal in position. POST-CONTRAST: No abnormal areas of enhancement are seen. C2-C3: The thecal sac has a normal configuration. There is no evidence of disc herniation or spinal canal stenosis. Uncovertebral spurring causing mild neural foraminal encroachment on the left. Right forame n is patent. C3-C4: Posterior disc osteophyte complex more eccentric to the left abuts the ventral cord and causing cord flattening. There is some narrowing of the left lateral recess and in conjunction with uncovertebral spurring causes moderate narrowing the left neural foramen. Mild narrowing of the right neural forame n. No significant canal stenosis. C4-C5: Mild broad-based posterior disc osteophyte complex slight eccentric to the left abuts the ventral the lizandro sac. There is some cord flattening. No significant canal stenosis. Uncovertebral spurring causes moderate bilateral neural frontal encroachment. C5-C6: Anterior fusion. The thecal sac has a normal configuration. There is no evidence of disc herniation or spinal canal stenosis. The neural foramina are patent bilaterally. C6-C7: Small posterior disc osteophyte complex abuts the ventral thecal sac. No canal stenosis. The neural f oramina are patent bilaterally. C7-T1: The thecal sac has a normal configuration. There is no evidence of disc herniation or spinal canal s tenosis. The neural foramina are patent bilaterally. CONCLUSION: 1. Posterior disc osteophyte complex at C3-4 causing cord flattening. No significant canal stenosis. 2. Mild broad-based posterior disc osteophyte complex slightly eccentric to left at C4-5. No canal st enosis. 3. Small posterior disc osteophyte complex C6-7 without canal stenosis. 4. Anterior fusion C5-6. 5. Uncovertebral hypertrophy causing scattered neural foraminal narrowing as above. Oracio Birmingham MD on December 25, 2016 at 17:26 Board Certified Radiologist. This report was verified electronically.
[2016-12-25] MEDS: LEVOFLOXACIN 750 MG PREMIX INJ 150 ML IV SCH (18:27)
[2016-12-26] VITALS (19 sets, daily range): BP systolic 100–119; BP diastolic 53–65; PULSE 64–78; RESP 20–22; TEMP 97.8–98.7; O2SAT 97–100
[2016-12-26] MEDS: fentaNYL DRIP 250 ML IV PRN ×3 (00:52→20:17)
[2016-12-26] MEDS: CHLORHEXIDINE GLUCONATE 2 % 1 PACK (2 CLOTHS) TOP SCH (02:20)
[2016-12-26] MEDS: RESP: ALBUTEROL 2.5 MG/IPRATROPIUM 0.5 MG NEB (SCH) NEB ×6 (03:06→23:26)
[2016-12-26] MEDS: SODIUM CHLOR 0.9% 1000 ML INJ 1,000 ML IV SCH ×2 (04:20→09:15)
[2016-12-26 04:51] LABS: AUTOMATED NEUTROPHIL # 8.2 TH/MM3 (1.8-7.7); BASOPHIL % 0.1 % (0.0-2.0); HEMATOCRIT 29.3 % (39.0-51.0); HEMO FLAGS DIFF FINAL; LYMPH % 4.2 % (9.0-44.0); LYMPHOCYTE # 0.4 TH/MM3 (1.0-4.8); MEAN CELL VOLUME 79.3 FL (80.0-100.0); MEAN CORPUSCULAR HEMOGLOBIN 25.6 PG (27.0-34.0); MEAN CORPUSCULAR HGB CONC 32.3 % (32.0-36.0); MONO % 3.1 % (0.0-8.0); NEUT % 92.6 % (16.0-70.0); PLATELET COUNT 221 TH/MM3 (150-450); REVIEW FLAG FINAL; WHITE BLOOD COUNT 8.9 TH/MM3 (4.0-11.0)
[2016-12-26 05:27] LABS: MAGNESIUM 2.1 MG/DL (1.5-2.5)
--- NOTE | 2016-12-26 05:35 | RADRPT ---
EXAM DATE/TIME: 12/26/2016 04:02 [facility] COMPARISON: CHEST SINGLE AP, December 24, 2016, 18:12. INDICATIONS : Respiratory failure. MEDICAL HISTORY : Hypertension. Hepatitis C. CVA. Substance abuse. SURGICAL HISTORY : Appendectomy. Cholecystectomy. ENCOUNTER: Subsequent ACUITY: 3 days PAIN SCORE: Non-responsive. LOCATION: chest FINDINGS: A single view of the chest demonstrates endotracheal tube in satisfactory position. NG coiled in stom ach. Right central line in superior vena cava. Mild basilar airspace disease and small effusions. Hea rt size within normal limits. CONCLUSION: 1. Small pleural effusions. Improved bilateral airspace disease since December 24. Endotracheal tube , nasogastric tube and right central line in satisfactory position. Brain Oropeza MD on December 26, 2016 at 5:32 Board Certified Radiologist. This report was verified electronically.
[2016-12-26] MEDS: INSULIN NovoLIN REGULAR SUPPLEMENTAL SCALE SQ SCH ×3 (06:00→18:00)
[2016-12-26] MEDS: HEPARIN SODIUM - SQ 10,000 UNITS/ML VIAL SQ SCH ×3 (07:01→21:50)
[2016-12-26] MEDS: RESP: BUDESONIDE 0.5 MG/2 ML NEB NEB SCH ×2 (07:37→19:48)
[2016-12-26] MEDS: CHLORHEXIDINE 0.12% (ORAL KIT) 15 ML CUP MT SCH ×2 (08:00→20:16)
[2016-12-26] MEDS: PRAVASTATIN SOD 40 MG TAB PO SCH (08:04)
[2016-12-26] MEDS: CLOPIDOGREL 75 MG TAB PO SCH (08:04)
[2016-12-26] MEDS: DOCUSATE SODIUM 50 MG/SENNA 8.6 MG TAB PO SCH ×2 (08:04→20:16)
[2016-12-26] MEDS: GENTAMICIN INJ 100 MG in SODIUM CHLORIDE 0.9% INJ 100 ML IV SCH ×2 (08:04→20:16)
[2016-12-26] MEDS: ASPIRIN 81 MG CHEW TAB CHEW SCH (08:04)
[2016-12-26] MEDS: methylPREDNISolone SOD SUCC 40 MG/1 ML VIAL IV PUSH SCH ×2 (08:04→15:51)
[2016-12-26] MEDS: GABAPENTIN 100 MG CAP PO SCH ×3 (08:04→17:49)
[2016-12-26] MEDS: FAMOTIDINE 20 MG/2 ML VIAL IV PUSH SCH ×2 (08:05→20:17)
[2016-12-26] MEDS: BENEPROTEIN POWDER 1 PACK G-TUBE SCH ×3 (08:05→17:49)
[2016-12-26] MEDS: ARTIFICIAL TEARS OPTH SOLN 15 ML BTL EACH EYE SCH ×3 (08:05→17:49)
[2016-12-26] MEDS: SODIUM CHLORIDE 0.9% FLUSH 10 ML FLUSH IVF SCH (08:05)
[2016-12-26] MEDS: SODIUM CHLORIDE 0.9% FLUSH 10 ML FLUSH IV FLUSH SCH ×4 (08:05→21:00)
--- NOTE | 2016-12-26 08:58 | PD.CARD.PN ---
Subjective Subjective Remarks intubated Objective Medications Current Medications Medications (Trade) Dose Ordered Sig/Yolanda Route Start Time Stop Time Status Last Admin Pharmacy Profile Note 0 ml @ 0 mls/hr UNSCH OTHER 12/24/16 03:30 (Ativan Inj) 1 mg Q2H PRN IV PUSH 12/24/16 03:30 12/24/16 16:34 Sodium Chloride 1,000 ml @ 100 mls/hr Q10H IV 12/24/16 03:29 12/25/16 19:50 (NS Flush) 2 ml UNSCH PRN IV FLUSH 12/24/16 03:30 (NS Flush) 2 ml BID IV FLUSH 12/24/16 09:00 12/26/16 08:05 (Zofran Inj) 4 mg Q6H PRN IVP 12/24/16 03:30 (Tylenol) 650 mg Q6H PRN PO 12/24/16 03:30 (Milk Of Magnesia Liq) 30 ml Q12H PRN PO 12/24/16 03:30 (Pravachol) 40 mg DAILY PO 12/24/16 09:00 12/26/16 08:04 (Nitroglycerin 2% Oint) 0.5 inch Q6HR PRN TOPICAL 12/24/16 03:45 Vancomycin HCl 1250 mg/Sodium Chloride 262.5 ml @ 250 mls/hr Q12H IV 12/24/16 13:00 12/25/16 23:51 (Narcan Inj) 0.4 mg UNSCH PRN IV 12/24/16 17:45 (Peridex 0.12% Liq) 15 ml BID@0800,2000 MT 12/24/16 20:00 12/26/16 08:00 Propofol 100 ml @ 1.89 mls/hr TITRATE PRN IV 12/24/16 17:45 12/25/16 07:31 Fentanyl Citrate 250 ml @ 5 mls/hr TITRATE PRN IV 12/24/16 17:45 12/26/16 00:52 (NS Flush) DAILY IVF 12/25/16 09:00 (NS Flush) UNSCH PRN IVF 12/24/16 18:15 Pharmacy Profile Note 0 ml @ 0 mls/hr UNSCH OTHER 12/24/16 18:45 (Duoneb Neb) 1 ampule Q4HR NEB NEB 12/24/16 20:00 12/26/16 07:37 (SoluMEDROL INJ) 40 mg Q8H IV PUSH 12/25/16 00:00 12/26/16 08:04 (NS Flush) 2 ml UNSCH PRN IV FLUSH 12/24/16 19:00 (NS Flush) 2 ml BID IV FLUSH 12/24/16 21:00 12/26/16 08:05 (Pepcid Inj) 20 mg Q12HR IV PUSH 12/24/16 21:00 12/26/16 08:05 (Tears Naturale Opth Soln) 1 drop TID EACH EYE 12/25/16 09:00 12/26/16 08:05 (Zofran Inj) 4 mg Q6H PRN IV PUSH 12/24/16 19:00 (Albuterol Neb) 2.5 mg Q2HR NEB PRN INH 12/24/16 19:00 Miscellaneous Information 1 Q361D XX 12/24/16 19:00 (Chlorhexidine 2% Cloth) 3 pack Taper DAILY@0400 TOP 12/25/16 04:00 12/21/17 03:59 (Chlorhexidine 2% Cloth) 3 pack UNSCH PRN TOP 12/24/16 19:00 (Nadine-Colace) 1 tab BID PO 12/24/16 21:00 12/26/16 08:04 (Milk Of Magnesia Liq) 30 ml Q12H PRN PO 12/24/16 19:00 (Senokot) 17.2 mg Q12H PRN PO 12/24/16 19:00 (Dulcolax Supp) 10 mg DAILY PRN RECTAL 12/24/16 19:00 (Lactulose Liq) 30 ml DAILY PRN PO 12/24/16 19:00 (D50w (Vial) Inj) 50 ml UNSCH PRN IV 12/24/16 19:00 (Glucagon Inj) 1 mg UNSCH PRN OTHER 12/24/16 19:00 (NovoLIN R SUPPLEMENTAL SCALE) 1 Q6HR SQ 12/25/16 00:00 12/25/16 01:08 (Plavix) 75 mg DAILY PO 12/25/16 09:00 12/26/16 08:04 (Neurontin) 100 mg TID PO 12/25/16 09:00 12/26/16 08:04 (Aspirin Chew) 81 mg DAILY CHEW 12/25/16 09:00 12/26/16 08:04 (Pulmicort Respule Neb) 0.5 mg Q12HR NEB NEB 12/24/16 20:00 12/26/16 07:37 (Heparin Inj) 5,000 units Q8HR SQ 12/25/16 14:00 12/26/16 07:01 Norepinephrine Bitartrate 4 mg/ Sodium Chloride 250 ml @ 7.5 mls/hr TITRATE PRN IV 12/25/16 06:45 12/25/16 19:47 (Brethine Inj) 1 mg UNSCH PRN SQ 12/25/16 06:45 (Beneprotein Powder) 1 pack TID G-TUBE 12/25/16 09:00 12/26/16 08:05 Midazolam HCl 100 ml @ 2 mls/hr TITRATE PRN IV 12/25/16 09:00 12/25/16 19:48 Levofloxacin/ Dextrose 150 ml @ 100 mls/hr Q24H IV 12/25/16 16:00 12/25/16 18:27 Miscellaneous Information SPECIFIC LAB TO BE MARGUERITE... ONCE ONCE .XX 12/26/16 12:45 12/26/16 12:46 Gentamicin Sulfate 100 mg/ Sodium Chloride 102.5 ml @ 200 mls/hr Q12H IV 12/26/16 08:00 12/26/16 08:04 Vital Signs / I&O Vital Signs Date Time Temp Pulse Resp B/P (MAP) Pulse Ox O2 Delivery O2 Flow Rate FiO2 12/26/16 07:32 100 40 12/26/16 06:00 64 12/26/16 04:28 100 40 12/26/16 04:00 64 12/26/16 04:00 98.0 64 20 103/59 (74) 100 12/26/16 02:00 72 12/26/16 01:09 100 40 12/26/16 00:00 72 12/26/16 00:00 97.8 72 22 116/60 (78) 100 12/25/16 22:12 100 40 12/25/16 22:00 65 12/25/16 20:00 62 12/25/16 20:00 97.8 62 20 111/59 (76) 100 12/25/16 19:47 63 116/59 12/25/16 19:40 100 40 12/25/16 18:00 61 12/25/16 16:00 61 12/25/16 16:00 97.9 61 20 113/63 (80) 100 12/25/16 14:00 60 12/25/16 12:00 97.9 62 20 106/58 (74) 100 12/25/16 12:00 62 12/25/16 12:00 40 12/25/16 11:44 100 40 12/25/16 10:00 60 I/O 12/25/16 12/25/16 12/25/16 12/26/16 12/26/16 12/26/16 07:00 15:00 23:00 07:00 15:00 23:00 Intake Total 1523 ml 1814 ml 277 ml 2140 ml Output Total 2325 ml 700 ml 550 ml Balance -802 ml 1814 ml -423 ml 1590 ml Intake Oral 0 ml IV Total 1523 ml 1814 ml 1672 ml Tube Feeding 77 ml 368 ml Tube Irrigant 100 ml Other 200 ml Output Urine Total 2175 ml 700 ml 550 ml Gastric Drainage Total 150 ml 0 ml Physical Exam on vent Chest few rhonchi CV S1S2 RRR. I can't hear his aortic regurgitation Ext no edema Laboratory Laboratory Tests Test 12/25/16 12:46 12/25/16 19:45 12/25/16 22:00 12/26/16 04:30 Vancomycin Level Trough 19.5 MCG/ML Gentamicin Level Trough 1.2 MCG/ML Gentamicin Level Peak 7.3 MCG/ML White Blood Count 8.9 TH/MM3 Red Blood Count 3.70 MIL/MM3 Hemoglobin 9.5 GM/DL Hematocrit 29.3 % Mean Corpuscular Volume 79.3 FL Mean Corpuscular Hemoglobin 25.6 PG Mean Corpuscular Hemoglobin Concent 32.3 % Red Cell Distribution Width 16.0 % Platelet Count 221 TH/MM3 Mean Platelet Volume 7.8 FL Neutrophils (%) (Auto) 92.6 % Lymphocytes (%) (Auto) 4.2 % Monocytes (%) (Auto) 3.1 % Eosinophils (%) (Auto) 0.0 % Basophils (%) (Auto) 0.1 % Neutrophils # (Auto) 8.2 TH/MM3 Lymphocytes # (Auto) 0.4 TH/MM3 Monocytes # (Auto) 0.3 TH/MM3 Eosinophils # (Auto) 0.0 TH/MM3 Basophils # (Auto) 0.0 TH/MM3 CBC Comment DIFF FINAL Differential Comment Lactic Acid Level 4.2 mmol/L Phosphorus Level 3.0 MG/DL Magnesium Level 2.1 MG/DL Troponin I 0.15 NG/ML Imaging Last 48 hours Impressions Chest X-Ray 12/26/16 0600 Signed Impressions: Service Date/Time: Monday, December 26, 2016 04:02 - CONCLUSION: 1. Small pleural effusions. Improved bilateral airspace disease since December 24. Endotracheal tube, nasogastric tube and right central line in satisfactory position. Brain Oropeza MD Cervical Spine MRI 12/25/16 0000 Signed Impressions: Service Date/Time: Sunday, December 25, 2016 16:11 - CONCLUSION: 1. Posterior disc osteophyte complex at C3-4 causing cord flattening. No significant canal stenosis. 2. Mild broad-based posterior disc osteophyte complex slightly eccentric to left at C4-5. No canal stenosis. 3. Small posterior disc osteophyte complex C6-7 without canal stenosis. 4. Anterior fusion C5-6. 5. Uncovertebral hypertrophy causing scattered neural foraminal narrowing as above. Oracio Birmingham MD Chest X-Ray 12/24/16 1811 Signed Impressions: Service Date/Time: Saturday, December 24, 2016 18:12 - CONCLUSION: 1. Marked interval worsening in bilateral patchy airspace disease, right worse than left. 2. Possible small right-sided effusion. 3. Interval placement of a right IJ central venous catheter with the tip projecting over the central venous system. 4. Interval placement of an endotracheal tube with the tip appropriate position above the bindu. Walker Neri MD Assessment and Plan Problem List: (1) Elevated troponin ICD Codes: R74.8 - Abnormal levels of other serum enzymes Plan: recent NSTEMI (2) Endocarditis of aortic valve ICD Codes: I35.8 - Other nonrheumatic aortic valve disorders Plan: cont antiobiotics (3) Hepatitis C ICD Codes: B19.20 - Viral hepatitis C Status: Chronic (4) IVDU (intravenous drug user) ICD Codes: F19.90 - Other psychoactive substance use, unspecified, uncomplicated (5) Noncompliance ICD Codes: Z91.19 - Patient's noncompliance with other medical treatment and regimen Plan: Severe. (6) Tobacco abuse ICD Codes: Z72.0 - Tobacco use Status: Acute Assessment and Plan Septic on IV antibiotics and pressors. I will be available prn. Ongoing drug use and extremely noncompliant - very poor prognosis. Manuel Paredes MD Dec 26, 2016 08:58
[2016-12-26] MEDS: MIDAZOLAM 100 MG/100 ML INJ 100 ML IV PRN ×2 (10:00→20:18)
--- NOTE | 2016-12-26 10:00 | HHI.CCPN ---
Subjective Remarks/Hospital Course 61-year-old male. Date of admission 12/24/2016. Date of consultation 12/24/2016. Past medical history includes left cerebellar CVA Hepatitis C, CAD, hypertension, dyslipidemia, COPD, peripheral neuropathy, microcytic anemia, Tobacco Abuse and IVDU with a positive toxicology screen for cocaine who was brought to the ER by EMS secondary to complaints of SOB starting earlier tonight patient has been admitted 12/17 for NSTEMI and +E. Faecalis 07/18 bacteremia, s/p eval by ID, on Vanc however LEFT AMA 12/19/16 prior to completion of treatment. Re-admitted 12/21/16 w/ STEMI, s/p KIRSTIN 12/22/[address] Paredes, found to have AV Vegetation 7 x 10 mm on left coronary cusp, however LEFT AMA once again. Blood Cultures 12/22/16 negative x2. O2 sat 100% on RA, Afebrile. CBC at baseline. Chemistry essentially unremarkable. Trop 0.14, previously 0.25 on 12/21/16. CXR w/ small right effusion In ED, patient became more combative a short of breath requiring 100% nonrebreather. Patient was sent to room 1306 and was emergently intubated in the floor with 20 mg etomidate and 50 mg rocuronium. Subjective 12/25: Afebrile overnight. Arousable the ventilator and follows commands. Plan for MRI C-spine today. Tube feeds to be initiated. No bowel movement today. 12/26: Remains sedated, orally intubated on mechanical ventilation. Objective Vital Signs Date Time Temp Pulse Resp B/P (MAP) Pulse Ox O2 Delivery O2 Flow Rate FiO2 12/26/16 07:32 100 40 12/26/16 06:00 64 12/26/16 04:00 98.0 20 103/59 (74) 12/24/16 17:25 Non-Rebreather 12/24/16 17:25 12.00 Intake and Output 12/26/16 12/26/16 12/27/16 08:00 16:00 00:00 Intake Total 2140 ml Output Total 550 ml Balance 1590 ml Result Diagram: 12/26/16 0430 12/26/16 0830 Imaging Last Impressions Chest X-Ray 12/24/16 1811 Signed Impressions: Service Date/Time: Saturday, December 24, 2016 18:12 - CONCLUSION: 1. Marked interval worsening in bilateral patchy airspace disease, right worse than left. 2. Possible small right-sided effusion. 3. Interval placement of a right IJ central venous catheter with the tip projecting over the central venous system. 4. Interval placement of an endotracheal tube with the tip appropriate position above the bindu. Walker Neri MD CT Angiography 12/24/16 0000 Signed Impressions: Service Date/Time: Saturday, December 24, 2016 21:10 - CONCLUSION: 1. Marked interval worsening of bilateral patchy airspace disease. 2. Enlarging pleural effusions. 3. No evidence of pulmonary embolism. 4. Stable position of support devices. Cholo Nixon MD Objective Remarks GENERAL: 61-year-old male, critically ill currently orotracheally intubated SKIN: Warm and dry with scattered nodular lesions involving left upper and bilateral lower extremities well-healed/crusted yellowish HEAD: Atraumatic. Normocephalic. EYES: Pupils equal and round around 2 mm bilaterally and reactive. No scleral icterus. No injection or drainage. ENT: No nasal bleeding or discharge. Mucous membranes pink and moist. Orotracheally intubated NECK: Trachea midline. No JVD. Right IJ is clean dry and intact without erythema CARDIOVASCULAR: Tachycardic, RR. S1, S2. No S4. Without murmur RESPIRATORY: Orally intubated on mechanical ventilation. Clear to auscultation. Breath sounds equal bilaterally. GASTROINTESTINAL: Abdomen soft, non-tender, nondistended. Hypoactive bowel sounds are appreciated MUSCULOSKELETAL: Extremities without significant peripheral edema. No obvious deformities. NEUROLOGICAL: Sedated, orally intubated on mechanical ventilation. (Prior to intubation was awake and alert. Moving all 4 extremities spontaneously. Not any focal deficit) Date of Insertion: Dec 24, 2016 Line: Central Venous Catheter Side: Right Location: Internal, Jugular A/P Assessment and Plan Neuro/Psych: Acute toxic metabolic encephalopathy secondary to hypoxia/severe sepsis Chronic pain syndrome Chronic opioid use Peripheral neuropathy Continue propofol and fentanyl gtt. for sedation/analgesia while intubated Goal of RASS -2 Daily sedation vacation Patient is on hydromorphone 4 mg by mouth every 6 hours. For pain at home Patient is on gabapentin 100 mg by mouth 3 times a day at home for neuropath CV: NSTEMI - likely type II demand ischemia Chronic systolic heart failure Dyslipidemia Lactic acidosis On Levophed for pressor support. Currently on normal saline in the 100 cc an hour Continue aspirin 81 mg daily and clopidogrel 75 mg by mouth daily Home medications clonidine 0.1 mg by mouth twice a day for hypertension Home medication is atorvastatin 10 mg by mouth daily for dyslipidemia. Currently on pravastatin 20 mg daily KIRSTIN 12/22 revealed EF 40%. Global hypokinesis. Serial lactates until clear Resp: Acute hypoxemic hypercapnic respiratory failure secondary to underlying sepsis COPD PRVC /04/20/49 Ventilator bundle Albuterol/ipratropium aerosols every 4 hours with albuterol aerosols every 2 hours when necessary dyspnea Add budesonide 0.5/21 inhalation twice a day Methylprednisolone 40 mg IV every 8 hours Spontaneous breathing trials when clinically indicated GI: Hepatitis C Continue Jevity 1.5 goal 55 cc an hour Famotidine 20 mg IV twice a day for GI prophylaxis Docusate sodium/senna 1 tablet twice a day for bowel regimen : Wnin catheter has been placed for accurate I's and O's in a critically ill patient Endo: Hyperglycemia Sliding-scale insulin with Accu-Cheks to maintain euglycemia/low regimen with Novulin R Renal: Creatinine currently within normal limits Monitor urine output Accurate I's and O's Heme: Microcytic anemia Leukocytosis Monitor CBC daily No indication for transfusion of blood products at this time ID: Enterococcus faecalis aortic valve endocarditis MRSA wound infection Currently on vancomycin, gentamicin per infectious disease Pertinent cultures 12/24 - blood cultures 3 and sputum - pending 12/17 - leg - MRSA 12/17 - blood cultures x4 - Enterococcus faecalis FEN: Replace electrolytes as clinically indicated MSK: Osteoarthritis/osteoporosis PT evaluate and treat Access - Right IJ CVL day 2 placed 12/24 Prophylaxis - GI -famotidine - DVT - SCD/heparin subcutaneous Critical Care: The total critical care time was 35 minutes. Time to perform other separately billable procedures was not included in the critical care time. Jacky Panda MD Dec 26, 2016 10:00
[2016-12-26] MEDS ORDERED: PHARMACY ORDERED LAB ONE (12:45)
[2016-12-26] MEDS: VANCOMYCIN INJ 1,250 MG in SODIUM CHLOR 0.9% 250 ML INJ 250 ML IV SCH (14:16)
[2016-12-26] MEDS: LEVOFLOXACIN 750 MG PREMIX INJ 150 ML IV SCH (15:51)
[2016-12-27] VITALS (19 sets, daily range): BP systolic 95–119; BP diastolic 53–60; PULSE 58–83; RESP 20; TEMP 97.6–99; O2SAT 95–100
[2016-12-27] MEDS: methylPREDNISolone SOD SUCC 40 MG/1 ML VIAL IV PUSH SCH ×3 (00:31→16:06)
[2016-12-27] MEDS: VANCOMYCIN INJ 1,250 MG in SODIUM CHLOR 0.9% 250 ML INJ 250 ML IV SCH ×2 (00:31→12:09)
[2016-12-27] MEDS: RESP: ALBUTEROL 2.5 MG/IPRATROPIUM 0.5 MG NEB (SCH) NEB ×5 (03:28→19:51)
[2016-12-27] MEDS: CHLORHEXIDINE GLUCONATE 2 % 1 PACK (2 CLOTHS) TOP SCH (04:00)
[2016-12-27] MEDS: HEPARIN SODIUM - SQ 10,000 UNITS/ML VIAL SQ SCH ×3 (04:59→20:19)
[2016-12-27] MEDS: INSULIN NovoLIN REGULAR SUPPLEMENTAL SCALE SQ SCH ×4 (06:00→17:36)
[2016-12-27] MEDS: MIDAZOLAM 100 MG/100 ML INJ 100 ML IV PRN ×2 (06:06→17:53)
[2016-12-27] MEDS ORDERED: PHARMACY ORDERED LAB ONE (07:45)
[2016-12-27] MEDS: SODIUM CHLOR 0.9% 1000 ML INJ 1,000 ML IV SCH ×2 (07:54→11:29)
[2016-12-27] MEDS: CHLORHEXIDINE 0.12% (ORAL KIT) 15 ML CUP MT SCH ×2 (08:00→20:19)
[2016-12-27] MEDS: fentaNYL DRIP 250 ML IV PRN ×2 (08:16→17:53)
[2016-12-27] MEDS: RESP: BUDESONIDE 0.5 MG/2 ML NEB NEB SCH ×2 (08:27→19:51)
[2016-12-27] MEDS: ARTIFICIAL TEARS OPTH SOLN 15 ML BTL EACH EYE SCH ×3 (09:00→17:36)
[2016-12-27] MEDS: BENEPROTEIN POWDER 1 PACK G-TUBE SCH ×3 (09:00→17:36)
[2016-12-27] MEDS: SODIUM CHLORIDE 0.9% FLUSH 10 ML FLUSH IVF SCH (09:00)
[2016-12-27] MEDS: SODIUM CHLORIDE 0.9% FLUSH 10 ML FLUSH IV FLUSH SCH ×4 (09:00→20:24)
[2016-12-27] MEDS: CLOPIDOGREL 75 MG TAB PO SCH (09:15)
[2016-12-27] MEDS: PRAVASTATIN SOD 40 MG TAB PO SCH (09:15)
[2016-12-27] MEDS: DOCUSATE SODIUM 50 MG/SENNA 8.6 MG TAB PO SCH ×2 (09:16→20:19)
[2016-12-27] MEDS: FAMOTIDINE 20 MG/2 ML VIAL IV PUSH SCH ×2 (09:16→20:19)
[2016-12-27] MEDS: GABAPENTIN 100 MG CAP PO SCH ×3 (09:16→17:36)
[2016-12-27] MEDS: ASPIRIN 81 MG CHEW TAB CHEW SCH (09:16)
[2016-12-27] MEDS: GENTAMICIN INJ 100 MG in SODIUM CHLORIDE 0.9% INJ 100 ML IV SCH ×2 (09:18→20:20)
[2016-12-27] MEDS: LORazepam 2 MG/ML VIAL IV PUSH PRN ×2 (13:57→17:36)
--- NOTE | 2016-12-27 15:13 | HHI.CCPN ---
Subjective Remarks/Hospital Course 61-year-old male. Date of admission 12/24/2016. Date of consultation 12/24/2016. Past medical history includes left cerebellar CVA Hepatitis C, CAD, hypertension, dyslipidemia, COPD, peripheral neuropathy, microcytic anemia, Tobacco Abuse and IVDU with a positive toxicology screen for cocaine who was brought to the ER by EMS secondary to complaints of SOB starting earlier tonight patient has been admitted 12/17 for NSTEMI and +E. Faecalis 07/18 bacteremia, s/p eval by ID, on Vanc however LEFT AMA 12/19/16 prior to completion of treatment. Re-admitted 12/21/16 w/ STEMI, s/p KIRSTIN 12/22/[address] Paredes, found to have AV Vegetation 7 x 10 mm on left coronary cusp, however LEFT AMA once again. Blood Cultures 12/22/16 negative x2. O2 sat 100% on RA, Afebrile. CBC at baseline. Chemistry essentially unremarkable. Trop 0.14, previously 0.25 on 12/21/16. CXR w/ small right effusion In ED, patient became more combative a short of breath requiring 100% nonrebreather. Patient was sent to room 1306 and was emergently intubated in the floor with 20 mg etomidate and 50 mg rocuronium. Subjective 12/25: Afebrile overnight. Arousable the ventilator and follows commands. Plan for MRI C-spine today. Tube feeds to be initiated. No bowel movement today. 12/26: Remains sedated, orally intubated on mechanical ventilation. 12/27: Sedated, arousable, orally intubated on mechanical ventilation. Objective Vital Signs Date Time Temp Pulse Resp B/P (MAP) Pulse Ox O2 Delivery O2 Flow Rate FiO2 12/27/16 11:16 100 30 12/27/16 10:00 70 12/27/16 08:00 97.6 20 105/60 (75) 12/24/16 17:25 Non-Rebreather 12/24/16 17:25 12.00 Intake and Output 12/27/16 12/27/16 12/28/16 08:00 16:00 00:00 Intake Total 2849.7 ml Output Total 950 ml Balance 1899.7 ml Result Diagram: 12/26/16 7080 12/27/16 3048 Imaging Last Impressions Chest X-Ray 12/24/16 1811 Signed Impressions: Service Date/Time: Saturday, December 24, 2016 18:12 - CONCLUSION: 1. Marked interval worsening in bilateral patchy airspace disease, right worse than left. 2. Possible small right-sided effusion. 3. Interval placement of a right IJ central venous catheter with the tip projecting over the central venous system. 4. Interval placement of an endotracheal tube with the tip appropriate position above the bindu. Walker Neri MD CT Angiography 12/24/16 0000 Signed Impressions: Service Date/Time: Saturday, December 24, 2016 21:10 - CONCLUSION: 1. Marked interval worsening of bilateral patchy airspace disease. 2. Enlarging pleural effusions. 3. No evidence of pulmonary embolism. 4. Stable position of support devices. Cholo Nixon MD Objective Remarks GENERAL: 61-year-old male, critically ill currently orotracheally intubated SKIN: Warm and dry with scattered nodular lesions involving left upper and bilateral lower extremities well-healed/crusted yellowish HEAD: Atraumatic. Normocephalic. EYES: Pupils equal and round around 2 mm bilaterally and reactive. No scleral icterus. No injection or drainage. ENT: No nasal bleeding or discharge. Mucous membranes pink and moist. Orotracheally intubated NECK: Trachea midline. No JVD. Right IJ is clean dry and intact without erythema CARDIOVASCULAR: Tachycardic, RR. S1, S2. No S4. Without murmur RESPIRATORY: Orally intubated on mechanical ventilation. Clear to auscultation. Breath sounds equal bilaterally. GASTROINTESTINAL: Abdomen soft, non-tender, nondistended. Hypoactive bowel sounds are appreciated MUSCULOSKELETAL: Extremities without significant peripheral edema. No obvious deformities. NEUROLOGICAL: Sedated, orally intubated on mechanical ventilation. Arouses on lightening sedation (Prior to intubation was awake and alert. Moving all 4 extremities spontaneously. No focal deficit grossly) Date of Insertion: Dec 24, 2016 Line: Central Venous Catheter Side: Right Location: Internal, Jugular A/P Assessment and Plan Neuro/Psych: Acute toxic metabolic encephalopathy secondary to hypoxia/severe sepsis Chronic pain syndrome Chronic opioid use Peripheral neuropathy Continue propofol and fentanyl gtt. for sedation/analgesia while intubated Goal of RASS -2 Daily sedation vacation Patient is on hydromorphone 4 mg by mouth every 6 hours. For pain at home Patient is on gabapentin 100 mg by mouth 3 times a day at home for neuropath CV: NSTEMI - likely type II demand ischemia Chronic systolic heart failure Dyslipidemia Lactic acidosis Off Levophed KVO IV fluids on 12/27 Continue aspirin 81 mg daily and clopidogrel 75 mg by mouth daily Home medications clonidine 0.1 mg by mouth twice a day for hypertension Home medication is atorvastatin 10 mg by mouth daily for dyslipidemia. Currently on pravastatin 20 mg daily KIRSTIN 12/22 revealed EF 40%. Global hypokinesis. Serial lactates until clear Resp: Acute hypoxemic hypercapnic respiratory failure secondary to underlying sepsis COPD PRVC 20/550/04/20/49 Ventilator bundle Albuterol/ipratropium aerosols every 4 hours with albuterol aerosols every 2 hours when necessary dyspnea Add budesonide 0.5/21 inhalation twice a day Methylprednisolone 40 mg IV every 8 hours Spontaneous breathing trials when clinically indicated GI: Hepatitis C Continue Jevity 1.5 goal 55 cc an hour Famotidine 20 mg IV twice a day for GI prophylaxis Docusate sodium/senna 1 tablet twice a day for bowel regimen : Winn catheter has been placed for accurate I's and O's in a critically ill patient Endo: Hyperglycemia Sliding-scale insulin with Accu-Cheks to maintain euglycemia/low regimen with Novulin R Renal: Creatinine currently within normal limits Monitor urine output Accurate I's and O's Heme: Microcytic anemia Leukocytosis Monitor CBC daily No indication for transfusion of blood products at this time ID: Enterococcus faecalis aortic valve endocarditis MRSA wound infection Currently on vancomycin, gentamicin per infectious disease Pertinent cultures 12/24 - blood cultures 3 and sputum - pending 12/17 - leg - MRSA 12/17 - blood cultures x4 - Enterococcus faecalis FEN: Replace electrolytes as clinically indicated MSK: Osteoarthritis/osteoporosis PT evaluate and treat Access - Right IJ CVL placed 12/24 Prophylaxis - GI -famotidine - DVT - SCD/heparin subcutaneous Critical Care: The total critical care time was 35 minutes. Time to perform other separately billable procedures was not included in the critical care time. Jacky Panda MD Dec 27, 2016 15:13
[2016-12-27] MEDS: LEVOFLOXACIN 750 MG PREMIX INJ 150 ML IV SCH (16:06)
--- NOTE | 2016-12-27 17:38 | HHI.IDPN ---
Subjective Subjective Remarks remains afebrile but not tolerating weaning at all growing Enterococcus in one out out of 4 blood clx Antibiotics vanco gentamycin Allergies: Coded Allergies: penicillin G (Unverified Allergy, Intermediate, SOB, RASH, 12/24/16) Penicillins (Verified Allergy, Unknown, 12/24/16) Objective . Vital Signs Date Time Temp Pulse Resp B/P (MAP) Pulse Ox O2 Delivery O2 Flow Rate FiO2 12/27/16 15:47 99 35 12/27/16 11:16 100 30 12/27/16 10:00 70 12/27/16 08:20 100 35 12/27/16 08:00 64 12/27/16 08:00 97.6 64 20 105/60 (75) 100 12/27/16 06:00 62 12/27/16 04:35 95 40 12/27/16 04:00 65 12/27/16 04:00 98.7 63 20 95/54 (68) 100 12/27/16 02:00 70 12/27/16 01:20 100 40 12/27/16 00:00 99.0 68 20 119/60 (79) 99 12/27/16 00:00 75 12/26/16 22:15 100 40 12/26/16 22:00 72 12/26/16 20:00 98.7 68 20 119/60 (79) 99 12/26/16 20:00 68 12/26/16 19:12 100 40 12/26/16 18:00 70 12/27/16 12/27/16 12/28/16 15:00 23:00 07:00 Intake Total 605.7 ml Balance 605.7 ml IV Total 605.7 ml . Laboratory Tests Test 12/26/16 04:30 White Blood Count 8.9 TH/MM3 Red Blood Count 3.70 MIL/MM3 Hemoglobin 9.5 GM/DL Hematocrit 29.3 % Mean Corpuscular Volume 79.3 FL Mean Corpuscular Hemoglobin 25.6 PG Mean Corpuscular Hemoglobin Concent 32.3 % Red Cell Distribution Width 16.0 % Platelet Count 221 TH/MM3 Mean Platelet Volume 7.8 FL Neutrophils (%) (Auto) 92.6 % Lymphocytes (%) (Auto) 4.2 % Monocytes (%) (Auto) 3.1 % Eosinophils (%) (Auto) 0.0 % Basophils (%) (Auto) 0.1 % Neutrophils # (Auto) 8.2 TH/MM3 Lymphocytes # (Auto) 0.4 TH/MM3 Monocytes # (Auto) 0.3 TH/MM3 Eosinophils # (Auto) 0.0 TH/MM3 Basophils # (Auto) 0.0 TH/MM3 CBC Comment DIFF FINAL Differential Comment Laboratory Tests Test 12/26/16 04:30 12/26/16 08:30 12/27/16 05:08 Lactic Acid Level 4.2 mmol/L Phosphorus Level 3.0 MG/DL Magnesium Level 2.1 MG/DL Troponin I 0.15 NG/ML Creatinine 0.90 MG/DL 0.61 MG/DL Estimat Glomerular Filtration Rate 86 ML/MIN 134 ML/MIN Microbiology Date/Time Source Procedure Growth Status 12/24/16 20:20 Blood Peripheral Aerobic Blood Culture - Preliminary NO GROWTH IN 3 DAYS Resulted 12/24/16 20:20 Blood Peripheral Anaerobic Blood Culture - Final QNS - SEE AEROBE REPORT Resulted Imaging Last Impressions Chest X-Ray 12/26/16 0600 Signed Impressions: Service Date/Time: Monday, December 26, 2016 04:02 - CONCLUSION: 1. Small pleural effusions. Improved bilateral airspace disease since December 24. Endotracheal tube, nasogastric tube and right central line in satisfactory position. Brain Oropeza MD Cervical Spine MRI 12/25/16 0000 Signed Impressions: Service Date/Time: Sunday, December 25, 2016 16:11 - CONCLUSION: 1. Posterior disc osteophyte complex at C3-4 causing cord flattening. No significant canal stenosis. 2. Mild broad-based posterior disc osteophyte complex slightly eccentric to left at C4-5. No canal stenosis. 3. Small posterior disc osteophyte complex C6-7 without canal stenosis. 4. Anterior fusion C5-6. 5. Uncovertebral hypertrophy causing scattered neural foraminal narrowing as above. Oracio Birmingham MD CT Angiography 12/24/16 0000 Signed Impressions: Service Date/Time: Saturday, December 24, 2016 21:10 - CONCLUSION: 1. Marked interval worsening of bilateral patchy airspace disease. 2. Enlarging pleural effusions. 3. No evidence of pulmonary embolism. 4. Stable position of support devices. Cholo Nixon MD Physical Exam CONSTITUTIONAL/GENERAL: This is a thin undernourished deshevelled patient, in no apparent distress. now sedated, int'd on mech vent'n TUBES/LINES/DRAINS: SKIN: No jaundice, Skin temperature appropriate. Not diaphoretic. EYES: Pupils equal and round and reactive. ENT: H Oral mucosae without visible erythema, exudates, masses, or lesions. Poor dentition NECK: Trachea midline. CARDIOVASCULAR: Regular rate and rhythm without murmurs, gallops, or rubs. No JVD. Peripheral pulses symmetric. RESPIRATORY/CHEST: Symmetric, unlabored respirations. Clear to auscultation. Breath sounds equal bilaterally. No wheezes, rales, or rhonchi. GASTROINTESTINAL: Abdomen soft, non-tender, nondistended. No hepato-splenomegaly , or palpable masses. GENITOURINARY: Without palpable bladder distension. .Winn in place with clear urine MUSCULOSKELETAL: Extremities without clubbing, cyanosis, or edema. NEUROLOGICAL: sedated, opens eyes to voice PSYCHIATRIC: unable to assess Assessment & Plan Remarks Enterococcus fecalis aortic valve endocarditis - admists to h/o IVDU ? H/o endocarditis, per pt account - not confirmed by recods Multipple skin lesions sugg of skin abscess HCV Neck pain, MRI w/o e/o infx Pulmonary infiltrate, hil;ar LAD High grade PCN alletrgy (throat edema, but treports tolerating Keflex OK) New bowel habit change and reportedly precancerous polips 4 yrs ago ? PNA Acute VDRF - noah 2/2 COPD exacerbation Staph epi bactermia, low grade 1/4: ? contamination is more noah Critically ill, unstable cont vancomycin + gentamycin repeat blood clx fu closely both vanco and gentamycin levels fu repeat blood clx cont levaquin Tiff Donohue MD Dec 27, 2016 17:38
[2016-12-28] VITALS (15 sets, daily range): BP systolic 105–135; BP diastolic 55–78; PULSE 54–118; RESP 14–20; TEMP 98.1–98.7; O2SAT 94–100
[2016-12-28] MEDS: methylPREDNISolone SOD SUCC 40 MG/1 ML VIAL IV PUSH SCH ×3 (00:17→15:15)
[2016-12-28] MEDS: VANCOMYCIN INJ 1,250 MG in SODIUM CHLOR 0.9% 250 ML INJ 250 ML IV SCH ×2 (00:17→13:41)
[2016-12-28] MEDS: RESP: ALBUTEROL 2.5 MG/IPRATROPIUM 0.5 MG NEB (SCH) NEB ×5 (00:20→15:36)
[2016-12-28] MEDS: SODIUM CHLOR 0.9% 1000 ML INJ 1,000 ML IV SCH ×2 (02:08→11:29)
[2016-12-28] MEDS: CHLORHEXIDINE GLUCONATE 2 % 1 PACK (2 CLOTHS) TOP SCH (04:00)
[2016-12-28] MEDS: fentaNYL DRIP 250 ML IV PRN (04:52)
[2016-12-28] MEDS: MIDAZOLAM 100 MG/100 ML INJ 100 ML IV PRN (04:53)
[2016-12-28] MEDS: INSULIN NovoLIN REGULAR SUPPLEMENTAL SCALE SQ SCH ×4 (06:00→18:00)
[2016-12-28 06:16] LABS: HEMATOCRIT 27.7 % (39.0-51.0); MEAN CELL VOLUME 79.6 FL (80.0-100.0); MEAN CORPUSCULAR HGB CONC 31.4 % (32.0-36.0); PLATELET COUNT 238 TH/MM3 (150-450); RED BLOOD COUNT 3.48 MIL/MM3 (4.50-5.90); RED CELL DISTRIBUTION WIDTH 16.1 % (11.6-17.2); WHITE BLOOD COUNT 5.3 TH/MM3 (4.0-11.0)
[2016-12-28 06:17] LABS: HEMO FLAGS AUTO DIFF
[2016-12-28] MEDS: HEPARIN SODIUM - SQ 10,000 UNITS/ML VIAL SQ SCH ×3 (06:20→20:41)
[2016-12-28 06:44] LABS: ANION GAP 5 MEQ/L (5-15); AST (GOT) 29 U/L (15-37); BICARBONATE 28.8 MEQ/L (21.0-32.0); BLOOD UREA NITROGEN 23 MG/DL (7-18); CHLORIDE 103 MEQ/L (98-107); GLOMERULAR FILTRATION RATE 165 ML/MIN (>89); POTASSIUM 4.3 MEQ/L (3.5-5.1); SODIUM (NA) 137 MEQ/L (136-145)
[2016-12-28 06:46] LABS: ALT (GPT) 20 U/L (12-78)
[2016-12-28 06:48] LABS: ALKALINE PHOSPHATASE 98 U/L (45-117); TOTAL BILIRUBIN ADULT 0.3 MG/DL (0.2-1.0)
[2016-12-28] MEDS: CHLORHEXIDINE 0.12% (ORAL KIT) 15 ML CUP MT SCH ×2 (08:00→20:41)
[2016-12-28] MEDS: RESP: BUDESONIDE 0.5 MG/2 ML NEB NEB SCH ×2 (08:14→20:48)
[2016-12-28] MEDS: GENTAMICIN INJ 100 MG in SODIUM CHLORIDE 0.9% INJ 100 ML IV SCH ×2 (08:18→20:41)
[2016-12-28] MEDS: CLOPIDOGREL 75 MG TAB PO SCH (08:18)
[2016-12-28] MEDS: GABAPENTIN 100 MG CAP PO SCH ×3 (08:18→18:18)
[2016-12-28] MEDS: ASPIRIN 81 MG CHEW TAB CHEW SCH (08:19)
[2016-12-28] MEDS: PRAVASTATIN SOD 40 MG TAB PO SCH (08:19)
[2016-12-28] MEDS: FAMOTIDINE 20 MG/2 ML VIAL IV PUSH SCH ×2 (08:19→20:41)
[2016-12-28] MEDS: DOCUSATE SODIUM 50 MG/SENNA 8.6 MG TAB PO SCH ×2 (08:19→20:41)
[2016-12-28] MEDS: SODIUM CHLORIDE 0.9% FLUSH 10 ML FLUSH IV FLUSH SCH ×4 (08:20→20:48)
[2016-12-28] MEDS: SODIUM CHLORIDE 0.9% FLUSH 10 ML FLUSH IVF SCH (08:20)
[2016-12-28] MEDS: ARTIFICIAL TEARS OPTH SOLN 15 ML BTL EACH EYE SCH ×3 (08:20→18:00)
[2016-12-28] MEDS: BENEPROTEIN POWDER 1 PACK G-TUBE SCH ×2 (09:00→13:00)
[2016-12-28 09:01] LABS: NEUTROPHIL # MANUAL DIFF 4.7 TH/MM3 (1.8-7.7); PLATELET ESTIMATE SMEAR NORMAL (NORMAL); PLATELET MORPHOLOGY NORMAL (NORMAL); POLYS (SEG NEUTROPHILS) 88 % (16-70); SCAN/DIFF FINAL DIFF MANUAL; WBC DIFF SAMPLE 100
[2016-12-28 09:02] LABS: OVALOCYTES 1+ (NORMAL)
--- NOTE | 2016-12-28 09:39 | HHI.CCPN ---
Subjective Remarks/Hospital Course 61-year-old male. Date of admission 12/24/2016. Date of consultation 12/24/2016. Past medical history includes left cerebellar CVA Hepatitis C, CAD, hypertension, dyslipidemia, COPD, peripheral neuropathy, microcytic anemia, Tobacco Abuse and IVDU with a positive toxicology screen for cocaine who was brought to the ER by EMS secondary to complaints of SOB starting earlier tonight patient has been admitted 12/17 for NSTEMI and +E. Faecalis 07/18 bacteremia, s/p eval by ID, on Vanc however LEFT AMA 12/19/16 prior to completion of treatment. Re-admitted 12/21/16 w/ STEMI, s/p KIRSTIN 12/22/[address] Paredes, found to have AV Vegetation 7 x 10 mm on left coronary cusp, however LEFT AMA once again. Blood Cultures 12/22/16 negative x2. O2 sat 100% on RA, Afebrile. CBC at baseline. Chemistry essentially unremarkable. Trop 0.14, previously 0.25 on 12/21/16. CXR w/ small right effusion In ED, patient became more combative a short of breath requiring 100% nonrebreather. Patient was sent to room 1306 and was emergently intubated in the floor with 20 mg etomidate and 50 mg rocuronium. Subjective 12/25: Afebrile overnight. Arousable the ventilator and follows commands. Plan for MRI C-spine today. Tube feeds to be initiated. No bowel movement today. 12/26: Remains sedated, orally intubated on mechanical ventilation. 12/27: Sedated, arousable, orally intubated on mechanical ventilation. 12/28: Sedated, arousable, orally intubated on mechanical ventilation. Objective Vital Signs Date Time Temp Pulse Resp B/P (MAP) Pulse Ox O2 Delivery O2 Flow Rate FiO2 12/28/16 08:06 96 35 12/28/16 06:00 55 12/28/16 04:00 98.4 20 105/55 (72) 12/24/16 17:25 Non-Rebreather 12/24/16 17:25 12.00 Intake and Output 12/28/16 12/28/16 12/29/16 08:00 16:00 00:00 Intake Total 815 ml Output Total 2000 ml Balance -1185 ml Result Diagram: 12/28/16 0600 12/28/16 0600 Imaging Last Impressions Chest X-Ray 12/24/16 1811 Signed Impressions: Service Date/Time: Saturday, December 24, 2016 18:12 - CONCLUSION: 1. Marked interval worsening in bilateral patchy airspace disease, right worse than left. 2. Possible small right-sided effusion. 3. Interval placement of a right IJ central venous catheter with the tip projecting over the central venous system. 4. Interval placement of an endotracheal tube with the tip appropriate position above the bindu. Walker Neri MD CT Angiography 12/24/16 0000 Signed Impressions: Service Date/Time: Saturday, December 24, 2016 21:10 - CONCLUSION: 1. Marked interval worsening of bilateral patchy airspace disease. 2. Enlarging pleural effusions. 3. No evidence of pulmonary embolism. 4. Stable position of support devices. Cholo Nixon MD Objective Remarks GENERAL: 61-year-old male, critically ill currently orotracheally intubated SKIN: Warm and dry with scattered nodular lesions involving left upper and bilateral lower extremities well-healed/crusted yellowish HEAD: Atraumatic. Normocephalic. EYES: Pupils equal and round around 2 mm bilaterally and reactive. No scleral icterus. No injection or drainage. ENT: No nasal bleeding or discharge. Mucous membranes pink and moist. Orotracheally intubated NECK: Trachea midline. No JVD. Right IJ is clean dry and intact without erythema CARDIOVASCULAR: Tachycardic, RR. S1, S2. No S4. Without murmur RESPIRATORY: Orally intubated on mechanical ventilation. Clear to auscultation. Breath sounds equal bilaterally. GASTROINTESTINAL: Abdomen soft, non-tender, nondistended. Hypoactive bowel sounds are appreciated MUSCULOSKELETAL: Extremities without significant peripheral edema. No obvious deformities. NEUROLOGICAL: Sedated, orally intubated on mechanical ventilation. Arouses on lightening sedation (Prior to intubation was awake and alert. Moving all 4 extremities spontaneously. No focal deficit grossly) Date of Insertion: Dec 24, 2016 Line: Central Venous Catheter Side: Right Location: Internal, Jugular A/P Assessment and Plan Neuro/Psych: Acute toxic metabolic encephalopathy secondary to hypoxia/severe sepsis Chronic pain syndrome Chronic opioid use Peripheral neuropathy Continue propofol and fentanyl gtt. for sedation/analgesia while intubated. Daily sedation vacation for C Pap trials Goal of RASS -2 Daily sedation vacation Patient is on hydromorphone 4 mg by mouth every 6 hours. For pain at home Patient is on gabapentin 100 mg by mouth 3 times a day at home for neuropath CV: NSTEMI - likely type II demand ischemia Chronic systolic heart failure Dyslipidemia Lactic acidosis Off Levophed KVO IV fluids on 12/27 Continue aspirin 81 mg daily and clopidogrel 75 mg by mouth daily Home medications clonidine 0.1 mg by mouth twice a day for hypertension Home medication is atorvastatin 10 mg by mouth daily for dyslipidemia. Currently on pravastatin 20 mg daily KIRSTIN 12/22 revealed EF 40%. Global hypokinesis. Serial lactates until clear Resp: Acute hypoxemic hypercapnic respiratory failure secondary to underlying sepsis COPD PRVC 20/550/04/20/34 Ventilator bundle Albuterol/ipratropium aerosols every 4 hours with albuterol aerosols every 2 hours when necessary dyspnea Add budesonide 0.5/21 inhalation twice a day Methylprednisolone 40 mg IV every 8 hours Spontaneous breathing trials to decide extubation GI: Hepatitis C Continue Jevity 1.5 goal 55 cc an hour Famotidine 20 mg IV twice a day for GI prophylaxis Docusate sodium/senna 1 tablet twice a day for bowel regimen : Winn catheter has been placed for accurate I's and O's in a critically ill patient Endo: Hyperglycemia Sliding-scale insulin with Accu-Cheks to maintain euglycemia/low regimen with Novulin R Renal: Creatinine currently within normal limits Monitor urine output Accurate I's and O's Heme: Microcytic anemia Leukocytosis Monitor CBC daily No indication for transfusion of blood products at this time ID: Enterococcus faecalis aortic valve endocarditis MRSA wound infection Currently on vancomycin, gentamicin per infectious disease Pertinent cultures 12/24 - blood cultures 3 and sputum - pending 12/17 - leg - MRSA 12/17 - blood cultures x4 - Enterococcus faecalis FEN: Replace electrolytes as clinically indicated MSK: Osteoarthritis/osteoporosis PT evaluate and treat Access - Right IJ CVL placed 12/24 Prophylaxis - GI -famotidine - DVT - SCD/heparin subcutaneous Critical Care: The total critical care time was 35 minutes. Time to perform other separately billable procedures was not included in the critical care time. Jacky Panda MD Dec 28, 2016 09:38
[2016-12-28] MEDS ORDERED: PHARMACY ORDERED LAB ONE (12:45)
[2016-12-28] MEDS: LORazepam 2 MG/ML VIAL IV PUSH PRN ×3 (13:41→22:03)
[2016-12-28] MEDS: LEVOFLOXACIN 750 MG PREMIX INJ 150 ML IV SCH (15:14)
--- NOTE | 2016-12-28 16:26 | RADRPT ---
EXAM DATE/TIME: 12/28/2016 15:47 [facility] COMPARISON: CHEST SINGLE AP, December 26, 2016, 4:02. INDICATIONS : Respiratory distress. MEDICAL HISTORY : Hypertension. Hepatitis C. CVA. Substance abuse. SURGICAL HISTORY : Appendectomy. Cholecystectomy. ENCOUNTER: Subsequent ACUITY: 4 - 6 days PAIN SCORE: Non-responsive. LOCATION: Bilateral chest FINDINGS: A single view of the chest demonstrates diffuse infiltrates bilaterally right greater the left partic ularly in the right lung base. The endotracheal tube and nasogastric have been removed. Right IJ cent ral venous catheter in good position.. The cardiomediastinal contours are unremarkable. Osseous str uctures are intact. CONCLUSION: Worsening infiltrate right lower lobe. Diffuse perihilar vascular congestion. Both clearly worse than the previous study Beck Vazquez MD on December 28, 2016 at 16:24 Board Certified Radiologist. This report was verified electronically.
[2016-12-28] MEDS ORDERED: FUROSEMIDE 40 MG/4 ML VIAL IV PUSH ONE ×2 (16:33→17:15)
[2016-12-28] MEDS: HYDROmorphone HCL 4 MG TAB PO PRN ×2 (16:56→22:03)
[2016-12-28] MEDS ORDERED: LORazepam 2 MG/ML VIAL IV ONE (17:15)
[2016-12-29] VITALS (12 sets, daily range): BP systolic 102–158; BP diastolic 50–75; PULSE 66–89; RESP 14–30; TEMP 97.7–98.7; O2SAT 79–100
[2016-12-29] MEDS: VANCOMYCIN 1,000 MG/NS 250 ML IV SCH ×4 (01:00→13:09)
[2016-12-29] MEDS: CHLORHEXIDINE GLUCONATE 2 % 1 PACK (2 CLOTHS) TOP SCH (04:00)
[2016-12-29] MEDS: HYDROmorphone HCL 4 MG TAB PO PRN ×3 (04:09→16:28)
[2016-12-29] MEDS: RESP: ALBUTEROL 2.5 MG/3 ML NEB (PRN) INH ×3 (04:19→21:50)
[2016-12-29] MEDS: HEPARIN SODIUM - SQ 10,000 UNITS/ML VIAL SQ SCH ×3 (05:06→21:06)
[2016-12-29] MEDS: LORazepam 2 MG/ML VIAL IV PUSH PRN ×2 (05:09→08:00)
[2016-12-29] MEDS: INSULIN NovoLIN REGULAR SUPPLEMENTAL SCALE SQ SCH ×5 (06:00→23:51)
[2016-12-29] MEDS ORDERED: FUROSEMIDE 40 MG/4 ML VIAL IV PUSH ONE (08:00)
[2016-12-29] MEDS: CHLORHEXIDINE 0.12% (ORAL KIT) 15 ML CUP MT SCH ×2 (08:00→20:00)
[2016-12-29] MEDS: methylPREDNISolone SOD SUCC 40 MG/1 ML VIAL IV PUSH SCH ×3 (08:41→21:07)
[2016-12-29] MEDS: RESP: BUDESONIDE 0.5 MG/2 ML NEB NEB SCH ×2 (08:41→21:50)
[2016-12-29] MEDS: FAMOTIDINE 20 MG/2 ML VIAL IV PUSH SCH (08:41)
[2016-12-29] MEDS: GENTAMICIN INJ 100 MG in SODIUM CHLORIDE 0.9% INJ 100 ML IV SCH ×2 (08:41→21:04)
[2016-12-29] MEDS: CLOPIDOGREL 75 MG TAB PO SCH (08:42)
[2016-12-29] MEDS: DOCUSATE SODIUM 50 MG/SENNA 8.6 MG TAB PO SCH ×2 (08:42→21:06)
[2016-12-29] MEDS: GABAPENTIN 100 MG CAP PO SCH ×3 (08:42→17:58)
[2016-12-29] MEDS: PRAVASTATIN SOD 40 MG TAB PO SCH (08:42)
[2016-12-29] MEDS: ASPIRIN 81 MG CHEW TAB CHEW SCH (08:42)
[2016-12-29] MEDS: SODIUM CHLORIDE 0.9% FLUSH 10 ML FLUSH IV FLUSH SCH ×4 (09:00→21:04)
[2016-12-29] MEDS: ARTIFICIAL TEARS OPTH SOLN 15 ML BTL EACH EYE SCH ×3 (09:00→17:58)
[2016-12-29] MEDS: SODIUM CHLORIDE 0.9% FLUSH 10 ML FLUSH IVF SCH (09:00)
[2016-12-29] MEDS: SODIUM CHLOR 0.9% 1000 ML INJ 1,000 ML IV SCH (11:29)
--- NOTE | 2016-12-29 12:27 | HHI.PR ---
Subjective Remarks The patient stated that he wanted to get up and work with therapy. He said he has been eating okay. He said he is a little constipated. He said his breathing was overall better. He has not been sleeping well at night. He says he has been anxious and having more shortness of breath during panic attacks. Discussed with nursing at bedside. Objective Vitals Vital Signs Date Time Temp Pulse Resp B/P (MAP) Pulse Ox O2 Delivery O2 Flow Rate FiO2 12/29/16 11:17 30 12/29/16 10:00 86 12/29/16 08:00 98.0 84 28 130/70 (90) 90 12/29/16 08:00 85 12/29/16 07:10 92 Nasal Cannula 6.00 12/29/16 06:00 80 12/29/16 04:00 82 12/29/16 04:00 98.6 82 26 128/65 (86) 95 12/29/16 02:00 89 12/29/16 00:00 82 12/29/16 00:00 98.7 82 14 133/64 (87) 98 12/28/16 22:00 80 12/28/16 20:00 100 12/28/16 20:00 98.7 100 19 122/76 (91) 94 12/28/16 18:00 103 12/28/16 16:00 118 12/28/16 16:00 98.6 118 20 135/78 (97) 99 12/28/16 14:00 93 I/O 12/28/16 12/28/16 12/28/16 12/29/16 12/29/16 12/29/16 07:00 15:00 23:00 07:00 15:00 23:00 Intake Total 815 ml 443 ml 1277 ml 650 ml Output Total 2000 ml 3500 ml 2250 ml Balance -1185 ml 443 ml -2223 ml -1600 ml Intake Oral 240 ml 400 ml IV Total 443 ml 817 ml 250 ml Tube Feeding 695 ml 100 ml Tube Irrigant 120 ml 120 ml Output Urine Total 2000 ml 3500 ml 2250 ml Result Diagram: 12/28/16 0600 12/28/16 0600 Imaging Last Impressions Chest X-Ray 12/28/16 0000 Signed Impressions: Service Date/Time: December 15:47 - CONCLUSION: Worsening infiltrate right lower lobe. Diffuse perihilar vascular congestion. Both clearly worse than the previous study Beck Vazquez MD Cervical Spine MRI 12/25/16 0000 Signed Impressions: Service Date/Time: Sunday, December 25, 2016 16:11 - CONCLUSION: 1. Posterior disc osteophyte complex at C3-4 causing cord flattening. No significant canal stenosis. 2. Mild broad-based posterior disc osteophyte complex slightly eccentric to left at C4-5. No canal stenosis. 3. Small posterior disc osteophyte complex C6-7 without canal stenosis. 4. Anterior fusion C5-6. 5. Uncovertebral hypertrophy causing scattered neural foraminal narrowing as above. Oracio Birmingham MD CT Angiography 12/24/16 0000 Signed Impressions: Service Date/Time: Saturday, December 24, 2016 21:10 - CONCLUSION: 1. Marked interval worsening of bilateral patchy airspace disease. 2. Enlarging pleural effusions. 3. No evidence of pulmonary embolism. 4. Stable position of support devices. Cholo Nixon MD Objective Remarks GENERAL: Appears thin and weak SKIN: Warm and dry with scattered nodular lesions involving left upper and bilateral lower extremities, well-healed/crusted yellowish HEAD: Atraumatic. Normocephalic EYES: Pupils equal and round around 2 mm bilaterally and reactive. No scleral icterus. No injection or drainage ENT: No nasal bleeding or discharge. Mucous membranes pink and moist. Orotracheally intubated NECK: Trachea midline. No JVD. Right IJ is clean dry and intact without erythema CARDIOVASCULAR: Tachycardic, RR. S1, S2. No S4. Without murmur RESPIRATORY: Coarse breath sounds, crackles at the bases GASTROINTESTINAL: Abdomen soft, non-tender, nondistended. Bowel sounds are appreciated MUSCULOSKELETAL: Extremities without significant peripheral edema. No obvious deformities NEUROLOGICAL: Awake and alert. Moves upper and lower extremities PSYCH: Slightly flattened affect Date of Insertion: Dec 24, 2016 Line: Central Venous Catheter Side: Right Location: Internal, Jugular A/P Problem List: (1) Endocarditis of aortic valve ICD Code: I35.8 - Other nonrheumatic aortic valve disorders (2) Elevated troponin ICD Code: R74.8 - Abnormal levels of other serum enzymes (3) Noncompliance ICD Code: Z91.19 - Patient's noncompliance with other medical treatment and regimen (4) Cocaine abuse ICD Code: F14.10 - Cocaine abuse, uncomplicated (5) IVDU (intravenous drug user) ICD Code: F19.90 - Other psychoactive substance use, unspecified, uncomplicated (6) Tobacco abuse ICD Code: Z72.0 - Tobacco use Status: Acute Assessment and Plan Acute hypoxemic hypercapnic respiratory failure/ Acute systolic CHF exacerbation Secondary to underlying sepsis, COPD and CHF. KIRSTIN 12/22 revealed EF 40%. Global hypokinesis. S/p intubation/ extubation. Currently on 6L NC and satting in the high 90s. - Albuterol/ipratropium aerosols every 4 hours with albuterol aerosols every 2 hours when necessary dyspnea. - Add budesonide 0.5/21 inhalation twice a day. - Methylprednisolone 40 mg IV every 8 hours. Wean to BID. - PT/ OT. - IS, encourage ambulation. - wean down oxygen as tolerated. - Lasix 40 mg IV BID. NSTEMI Likely type II demand ischemia. Off Levophed. - Continue aspirin 81 mg daily and clopidogrel 75 mg by mouth daily. Also on a statin. - cardiology following. Consider cath if stable. Acute toxic metabolic encephalopathy Secondary to hypoxemia/ severe sepsis. S/p intubation/ extubation. - seems resolved. Anemia Microcytic. - will obtain iron studies, B12, folate and Hemoccult. - follow CBC and transfuse as needed. Malnutrition/ Constipation The pt is tolerating a diet. Was previously on tube feeds. - Famotidine for GI prophylaxis. - add Miralax as needed. Endocarditis/ Leg wound infection/ Bacteremia The pt has left the hospital AMA several times while being treated. Enterococcus faecalis aortic valve endocarditis; MRSA wound infection. ID following. - Currently on vancomycin, gentamicin per infectious disease. Chronic pain syndrome/ Peripheral neuropathy Patient is on hydromorphone 4 mg by mouth every 6 hours and gabapentin 100 mg by mouth 3 times a day at home. - continue home meds. PPx: Heparin Discharge Planning Awaiting clinical improvement Matti Chavez DO Dec 29, 2016 12:27
[2016-12-29] MEDS ORDERED: POLYETHYLENE GLYCOL 17 GM PKG PO ONE (13:55)
[2016-12-29 14:27] LABS: TRANSFERRIN IRON PROFILE 204 MG/DL (200-360)
[2016-12-29 14:55] LABS: FERRITIN 196 NG/ML (26-388)
--- NOTE | 2016-12-29 14:56 | HHI.IDPN ---
Subjective Subjective Remarks remains afebrile extubated growing Enterococcus in one out out of 4 blood clx repeat BC neg 04/16 Antibiotics vanco gentamycin Allergies: Coded Allergies: penicillin G (Unverified Allergy, Intermediate, SOB, RASH, 12/24/16) Penicillins (Verified Allergy, Unknown, 12/24/16) Objective . Vital Signs Date Time Temp Pulse Resp B/P (MAP) Pulse Ox O2 Delivery O2 Flow Rate FiO2 12/29/16 14:00 78 12/29/16 12:00 86 12/29/16 12:00 98.4 84 25 125/62 (83) 100 12/29/16 11:17 30 12/29/16 10:00 86 12/29/16 08:00 98.0 84 28 130/70 (90) 90 12/29/16 08:00 85 12/29/16 07:10 92 Nasal Cannula 6.00 12/29/16 06:00 80 12/29/16 04:00 82 12/29/16 04:00 98.6 82 26 128/65 (86) 95 12/29/16 02:00 89 12/29/16 00:00 82 12/29/16 00:00 98.7 82 14 133/64 (87) 98 12/28/16 22:00 80 12/28/16 20:00 100 12/28/16 20:00 98.7 100 19 122/76 (91) 94 12/28/16 18:00 103 12/28/16 16:00 118 12/28/16 16:00 98.6 118 20 135/78 (97) 99 . Laboratory Tests Test 12/28/16 06:00 White Blood Count 5.3 TH/MM3 Red Blood Count 3.48 MIL/MM3 Hemoglobin 8.7 GM/DL Hematocrit 27.7 % Mean Corpuscular Volume 79.6 FL Mean Corpuscular Hemoglobin 25.0 PG Mean Corpuscular Hemoglobin Concent 31.4 % Red Cell Distribution Width 16.1 % Platelet Count 238 TH/MM3 Mean Platelet Volume 7.3 FL CBC Comment AUTO DIFF Differential Total Cells Counted 100 Neutrophils % (Manual) 88 % Lymphocytes % 9 % Monocytes % 3 % Neutrophils # (Manual) 4.7 TH/MM3 Differential Comment FINAL DIFF MANUAL Platelet Estimate NORMAL Platelet Morphology Comment NORMAL Ovalocytes 1+ Laboratory Tests Test 12/28/16 06:00 12/29/16 13:30 Blood Urea Nitrogen 23 MG/DL Creatinine 0.51 MG/DL Random Glucose 91 MG/DL Total Protein 5.1 GM/DL Albumin 2.2 GM/DL Calcium Level 8.3 MG/DL Alkaline Phosphatase 98 U/L Aspartate Amino Transf (AST/SGOT) 29 U/L Alanine Aminotransferase (ALT/SGPT) 20 U/L Total Bilirubin 0.3 MG/DL Sodium Level 137 MEQ/L Potassium Level 4.3 MEQ/L Chloride Level 103 MEQ/L Carbon Dioxide Level 28.8 MEQ/L Anion Gap 5 MEQ/L Estimat Glomerular Filtration Rate 165 ML/MIN Iron Level 24 MCG/DL Total Iron Binding Capacity 286 MCG/DL Percent Iron Saturation 8.4 % Microbiology Date/Time Source Procedure Growth Status 12/28/16 06:26 Blood Peripheral Aerobic Blood Culture - Preliminary NO GROWTH IN 1 DAY Resulted 12/28/16 06:26 Blood Peripheral Anaerobic Blood Culture - Preliminary NO GROWTH IN 1 DAY Resulted Imaging Last Impressions Chest X-Ray 12/28/16 0000 Signed Impressions: Service Date/Time: December 15:47 - CONCLUSION: Worsening infiltrate right lower lobe. Diffuse perihilar vascular congestion. Both clearly worse than the previous study Beck Vazquez MD Cervical Spine MRI 12/25/16 0000 Signed Impressions: Service Date/Time: Sunday, December 25, 2016 16:11 - CONCLUSION: 1. Posterior disc osteophyte complex at C3-4 causing cord flattening. No significant canal stenosis. 2. Mild broad-based posterior disc osteophyte complex slightly eccentric to left at C4-5. No canal stenosis. 3. Small posterior disc osteophyte complex C6-7 without canal stenosis. 4. Anterior fusion C5-6. 5. Uncovertebral hypertrophy causing scattered neural foraminal narrowing as above. Oracio Birmingham MD CT Angiography 12/24/16 0000 Signed Impressions: Service Date/Time: Saturday, December 24, 2016 21:10 - CONCLUSION: 1. Marked interval worsening of bilateral patchy airspace disease. 2. Enlarging pleural effusions. 3. No evidence of pulmonary embolism. 4. Stable position of support devices. Cholo Nixon MD Physical Exam CONSTITUTIONAL/GENERAL: awake alert, , in no apparent distress. now sedated, [facility] TUBES/LINES/DRAINS: SKIN: No jaundice, Skin temperature appropriate. Not diaphoretic. EYES: Pupils equal and round and reactive. No nystagmus ENT: Hearing OK Oral mucosae without visible erythema, exudates, masses, or lesions. Poor dentition NECK: Trachea midline. CARDIOVASCULAR: Regular rate and rhythm without murmurs, gallops, or rubs. No JVD. Peripheral pulses symmetric. RESPIRATORY/CHEST: Symmetric, unlabored respirations. Clear to auscultation. GASTROINTESTINAL: Abdomen soft, non-tender, nondistended. No hepato-splenomegaly , or palpable masses. GENITOURINARY: Without palpable bladder distension. .Winn in place with clear urine MUSCULOSKELETAL: Extremities without clubbing, cyanosis, or edema. NEUROLOGICAL: awake, alert, follows commands, clear speech PSYCHIATRIC: calm, coperative Assessment & Plan Remarks Enterococcus fecalis aortic valve endocarditis - admists to h/o IVDU ? H/o endocarditis, per pt account - not confirmed by recods Multipple skin lesions sugg of skin abscess HCV Neck pain, MRI w/o e/o infx Pulmonary infiltrate, hil;ar LAD High grade PCN alletrgy (throat edema, but treports tolerating Keflex OK) New bowel habit change and reportedly precancerous polips 4 yrs ago ? PNA Acute VDRF - noah 2/2 COPD exacerbation - resolved extubated Staph epi bactermia, low grade 1/4: ? contamination is more noah Pt is now stable cont vancomycin + gentamycin x 6 weeks from 1st negative blood clx I highly doubt compliance in this pt who left AMA multiple times before fu repeat blood clx untill final fu closely both vanco and gentamycin levels fu for nepghro and mic and vestibular tox cont levaquin x1 week Tiff Donohue MD Dec 29, 2016 14:56
[2016-12-29] MEDS: LEVOFLOXACIN 750 MG TAB PO SCH (16:17)
[2016-12-29] MEDS: LORazepam 1 MG TAB PO PRN (18:12)
[2016-12-29] MEDS: FUROSEMIDE 40 MG/4 ML VIAL IV PUSH SCH (21:05)
[2016-12-29] MEDS: FAMOTIDINE 20 MG TAB PO SCH (21:06)
[2016-12-30] VITALS: BP 104/60; PULSE 73; RESP 20; TEMP 98.2; O2SAT 94
[2016-12-30] MEDS: HYDROmorphone HCL 4 MG TAB PO PRN ×2 (00:15→06:32)
[2016-12-30 04:00] VITALS: BP 101/53; PULSE 63; RESP 18; TEMP 97.3; O2SAT 97
[2016-12-30] MEDS: CHLORHEXIDINE GLUCONATE 2 % 1 PACK (2 CLOTHS) TOP SCH (04:00)
[2016-12-30] MEDS: LORazepam 1 MG TAB PO PRN (05:00)
[2016-12-30] MEDS: HEPARIN SODIUM - SQ 10,000 UNITS/ML VIAL SQ SCH ×2 (05:00→13:06)
[2016-12-30] MEDS: INSULIN NovoLIN REGULAR SUPPLEMENTAL SCALE SQ SCH ×2 (05:01→12:00)
[2016-12-30] MEDS ORDERED: PHARMACY ORDERED LAB ONE ×2 (07:45→12:45)
[2016-12-30 08:00] VITALS: BP 112/57; PULSE 64; PULSE 71; RESP 20; TEMP 97.9; O2SAT 98
[2016-12-30] MEDS: CHLORHEXIDINE 0.12% (ORAL KIT) 15 ML CUP MT SCH (08:00)
[2016-12-30] MEDS: ARTIFICIAL TEARS OPTH SOLN 15 ML BTL EACH EYE SCH ×2 (09:00→13:00)
[2016-12-30] MEDS: RESP: ALBUTEROL 2.5 MG/3 ML NEB (PRN) INH (09:34)
[2016-12-30] MEDS: RESP: BUDESONIDE 0.5 MG/2 ML NEB NEB SCH (09:34)
[2016-12-30 09:38] VITALS: O2SAT 99
[2016-12-30] MEDS: LEVOFLOXACIN 750 MG TAB PO SCH (10:06)
[2016-12-30] MEDS: FUROSEMIDE 40 MG/4 ML VIAL IV PUSH SCH (10:06)
[2016-12-30] MEDS: GABAPENTIN 100 MG CAP PO SCH ×2 (10:06→13:05)
[2016-12-30] MEDS: methylPREDNISolone SOD SUCC 40 MG/1 ML VIAL IV PUSH SCH (10:06)
[2016-12-30] MEDS: PRAVASTATIN SOD 40 MG TAB PO SCH (10:06)
[2016-12-30] MEDS: FAMOTIDINE 20 MG TAB PO SCH (10:07)
[2016-12-30] MEDS: CLOPIDOGREL 75 MG TAB PO SCH (10:07)
[2016-12-30] MEDS: ASPIRIN 81 MG CHEW TAB CHEW SCH (10:07)
[2016-12-30] MEDS: DOCUSATE SODIUM 50 MG/SENNA 8.6 MG TAB PO SCH (10:07)
[2016-12-30] MEDS: SODIUM CHLORIDE 0.9% FLUSH 10 ML FLUSH IV FLUSH SCH ×2 (10:08)
[2016-12-30] MEDS: SODIUM CHLORIDE 0.9% FLUSH 10 ML FLUSH IVF SCH (10:08)
[2016-12-30 10:32] LABS: HEMATOCRIT 33.6 % (39.0-51.0); MEAN CELL VOLUME 77.5 FL (80.0-100.0); MEAN CORPUSCULAR HEMOGLOBIN 25.3 PG (27.0-34.0); MEAN CORPUSCULAR HGB CONC 32.7 % (32.0-36.0); PLATELET COUNT 244 TH/MM3 (150-450); RED BLOOD COUNT 4.33 MIL/MM3 (4.50-5.90); RED CELL DISTRIBUTION WIDTH 16.4 % (11.6-17.2); REVIEW FLAG FINAL
[2016-12-30] MEDS: GENTAMICIN INJ 100 MG in SODIUM CHLORIDE 0.9% INJ 100 ML IV SCH (10:54)
[2016-12-30] MEDS ORDERED: HYDROmorphone HCL 4 MG TAB PO PRN (11:45)
[2016-12-30] MEDS ORDERED: ACETAMINOPHEN/HYDROcodone 325 MG/5 MG TAB PO PRN (11:45)
--- NOTE | 2016-12-30 11:47 | HHI.PR ---
Subjective Remarks Patient has no complaints except being weak. He is very anxious to go home today. He has no other concerns. Remains afebrile. Objective Vitals Vital Signs Date Time Temp Pulse Resp B/P (MAP) Pulse Ox O2 Delivery O2 Flow Rate FiO2 12/30/16 09:38 99 Nasal Cannula 2.00 12/30/16 08:00 97.9 71 20 112/57 (75) 98 12/30/16 04:00 97.3 63 18 101/53 (69) 97 12/30/16 00:00 98.2 73 20 104/60 (75) 94 12/29/16 21:51 95 Nasal Cannula 2.00 12/29/16 20:00 Nasal Cannula 2.00 12/29/16 20:00 66 12/29/16 20:00 98.6 72 20 102/50 (67) 95 12/29/16 16:00 98.1 88 30 128/62 (84) 79 12/29/16 16:00 80 12/29/16 14:00 78 12/29/16 12:00 86 12/29/16 12:00 98.4 84 25 125/62 (83) 100 I/O 12/29/16 12/29/16 12/29/16 12/30/16 12/30/16 12/30/16 06:59 14:59 22:59 06:59 14:59 22:59 Intake Total 650 ml 120 ml Output Total 2250 ml 3600 ml Balance -1600 ml -3480 ml Intake Oral 400 ml 120 ml IV Total 250 ml Output Urine Total 2250 ml 3600 ml # Bowel Movements 1 Result Diagram: 12/30/16 0803 12/30/16 0803 Objective Remarks GENERAL: in NAD CARDIOVASCULAR: Regular rate and rhythm without murmurs, gallops, or rubs. RESPIRATORY: Breath sounds equal bilaterally. No accessory muscle use. GASTROINTESTINAL: Abdomen soft, non-tender, nondistended. MUSCULOSKELETAL: No cyanosis, or edema. BACK: Nontender without obvious deformity. No CVA tenderness. Medications and IVs Current Medications Sodium Chloride (NS Flush) 2 ml UNSCH PRN IVF FLUSH AFTER USING IV ACCESS; Start 12/24/16 at 01:00; Stop 12/24/16 at 03:40; Status DC Vancomycin HCl 1000 mg/Sodium Chloride 250 ml @ 250 mls/hr ONCE ONCE IV Last administered on 12/24/16 01:14; Start 12/24/16 at 01:00; Stop 12/24/16 at 01:59 ; Status DC Sodium Chloride 1,000 ml @ 999 mls/hr BOLUS ONCE IV Last administered on 12/24 03:41; Start 12/24/16 at 03:30; Stop 12/24/16 at 04:30; Status DC Pharmacy Profile Note 0 ml @ 0 mls/hr UNSCH OTHER ; Start 12/24/16 at 03:30 Lorazepam (Ativan Inj) 1 mg Q2H PRN IV PUSH AGITATION/WITHDRAWAL Last administered on 12/29/16 08:00; Start 12/24/16 at 03:30; Stop 12/29/16 at 13:47 ; Status DC Sodium Chloride 1,000 ml @ 30 mls/hr Q24H IV Last administered on 12/28/16 11 :29; Start 12/24/16 at 03:29; Stop 12/29/16 at 13:42; Status DC Sodium Chloride (NS Flush) 2 ml UNSCH PRN IV FLUSH FLUSH AFTER USING IV ACCESS ; Start 12/24/16 at 03:30 Sodium Chloride (NS Flush) 2 ml BID IV FLUSH Last administered on 12/30/16 10: 08; Start 12/24/16 at 09:00 Ondansetron HCl (Zofran Inj) 4 mg Q6H PRN IVP NAUSEA OR VOMITING; Start at 03:30 Acetaminophen (Tylenol) 650 mg Q6H PRN PO FEVER/PAIN SCALE 1 TO 2; Start at 03:30 Oxycodone HCl (Roxicodone) 10 mg Q4H PRN PO PAIN SCALE 6 TO 10 Last administered on 12/24/16 16:03; Start 12/24/16 at 03:30; Stop 12/24/16 at 18:46 ; Status DC Oxycodone HCl (Roxicodone) 5 mg Q4H PRN PO PAIN SCALE 3 TO 5; Start 12/24/16 at 03:30; Stop 12/24/16 at 18:46; Status DC Senna/Docusate Sodium (Nadine-Colace) 1 tab BID PO Last administered on 08:50; Start 12/24/16 at 09:00; Stop 12/24/16 at 16:28; Status DC Magnesium Hydroxide (Milk Of Magnesia Liq) 30 ml Q12H PRN PO MILD - MODERATE CONSTIPATION; Start 12/24/16 at 03:30 Sennosides (Senokot) 17.2 mg Q12H PRN PO MODERATE - SEVERE CONSTIPATION; Start 12/24/16 at 03:30; Stop 12/24/16 at 16:28; Status DC Bisacodyl (Dulcolax Supp) 10 mg DAILY PRN RECTAL SEVERE CONSITIPATION; Start at 03:30; Stop 12/24/16 at 16:28; Status DC Lactulose (Lactulose Liq) 30 ml DAILY PRN PO SEVERE CONSITIPATION; Start at 03:30; Stop 12/24/16 at 16:28; Status DC Aspirin (Ecotrin Ec) 81 mg DAILY PO Last administered on 12/24/16 08:50; Start 12/24/16 at 09:00; Stop 12/25/16 at 06:43; Status DC Pravastatin Sodium (Pravachol) 40 mg DAILY PO Last administered on 12/30/16 10 :06; Start 12/24/16 at 09:00 Nitroglycerin (Nitroglycerin 2% Oint) 0.5 inch Q6HR PRN TOPICAL CHEST PAIN; Start 12/24/16 at 03:45 Heparin Sodium (Porcine) (Heparin Inj) 5,000 units Q12HR SQ Last administered on 12/24/16 23:07; Start 12/24/16 at 09:00; Stop 12/25/16 at 06:43; Status DC Sodium Chloride 500 ml @ 500 mls/hr BOLUS ONCE IV Last administered on 04:12; Start 12/24/16 at 04:00; Stop 12/24/16 at 04:59; Status DC Vancomycin HCl 1250 mg/Sodium Chloride 262.5 ml @ 250 mls/hr Q12H IV Last administered on 12/28/16 13:41; Start 12/24/16 at 13:00; Stop 12/28/16 at 14:43 ; Status DC Miscellaneous Information SPECIFIC LAB TO BE ... ONCE ONCE .XX Last administered on 9/11/17at 12:45; Start 12/25/16 at 12:45; Stop 12/25/16 at 12:46 ; Status DC Methylprednisolone Sodium Succinate (SoluMEDROL INJ) 125 mg ONCE ONCE IV PUSH ; Start 12/24/16 at 18:00; Stop 12/24/16 at 18:01; Status DC Lorazepam (Ativan Inj) 1 mg ONCE ONCE IV PUSH ; Start 12/24/16 at 16:30; Stop 12/24/16 at 17:13; Status DC Albuterol/ Ipratropium (Duoneb Neb) 1 ampule Q6HR WHILE AWAKE NEB NEB ; Start 12/24/16 at 20:00; Stop 12/24/16 at 20:00; Status DC Albuterol/ Ipratropium (Duoneb Neb) 1 ampule Q2HR NEB PRN NEB SOB/WHEEZING Last administered on 12/24/16t 16:26; Start 12/24/16 at 16:30; Stop 12/24/16 at 18:46; Status DC Budesonide/ Formoterol Fumarate (Symbicort 160-4.5 Inh) 2 puff Q12HR INH ; Start 12/24/16 at 21:00; Stop 12/24/16 at 21:00; Status DC Tiotropium Jefferson (Spiriva Inh) 18 mcg DAILY INH ; Start 12/25/16 at 09:00; Stop 12/25/16 at 09:00; Status DC Guaifenesin (Mucinex Er) 600 mg BID PO ; Start 12/24/16 at 21:00; Stop 12/24/16 at 21:00; Status DC Methylprednisolone Sodium Succinate (SoluMEDROL INJ) 20 mg Q8H IV PUSH ; Start 12/25/16 at 00:00; Stop 12/25/16 at 00:00; Status DC Furosemide (Lasix Inj) 40 mg ONCE ONCE IV PUSH ; Start 12/24/16 at 17:30; Stop 12/24/16 at 17:31; Status DC Furosemide (Lasix Inj) 40 mg STK-MED ONCE .ROUTE ; Start 12/24/16 at 17:24; Stop 12/24/16 at 17:25; Status DC Etomidate (Amidate Inj) 20 mg STK-MED ONCE .ROUTE ; Start 12/24/16 at 17:35; Stop 12/24/16 at 17:36; Status DC Rocuronium Jefferson (Zemuron Inj) 100 mg STK-MED ONCE .ROUTE ; Start 12/24/16 at 17:35; Stop 12/24/16 at 17:36; Status DC Naloxone HCl (Narcan Inj) 0.4 mg UNSCH PRN IV SEE LABEL COMMENTS; Start at 17:45 Etomidate (Amidate Inj) 40 mg ONCE ONCE IV PUSH Last administered on 18:45; Start 12/24/16 at 17:45; Stop 12/24/16 at 18:22; Status DC Rocuronium Jefferson (Zemuron Inj) 100 mg BOLUS ONCE IV Last administered on 18:30; Start 12/24/16 at 17:45; Stop 12/24/16 at 19:13; Status DC Chlorhexidine Gluconate (Peridex 0.12% Liq) 15 ml BID@0800,2000 MT Last administered on 12/28/16 20:41; Start 12/24/16 at 20:00 Propofol 100 ml @ 1.89 mls/hr TITRATE PRN IV SEDATION Last administered on 07:31; Start 12/24/16 at 17:45; Stop 12/28/16 at 14:33; Status DC Fentanyl Citrate 250 ml @ 5 mls/hr TITRATE PRN IV SEDATION Last administered on 12/28/16 04:52; Start 12/24/16 at 17:45; Stop 12/28/16 at 14:33; Status DC Phenylephrine HCl 160 mg/Dextrose 500 ml @ 7.5 mls/hr TITRATE PRN IV Blood pressure management Last administered on 12/24/16 20:30; Start 12/24/16 at 17: 45; Stop 12/25/16 at 06:43; Status DC Terbutaline Sulfate (Brethine Inj) 1 mg UNSCH PRN SQ For Extravasation; Start 12/24/16 at 17:45; Stop 12/25/16 at 06:43; Status DC Etomidate (Amidate Inj) 20 mg STK-MED ONCE .ROUTE ; Start 12/24/16 at 17:39; Stop 12/24/16 at 17:40; Status DC Sodium Chloride (NS Flush) DAILY IVF Last administered on 12/30/16 10:08; Start 12/25/16 at 09:00 Sodium Chloride (NS Flush) UNSCH PRN IVF SEE PROTOCOL; Start 12/24/16 at 18:15 Pharmacy Profile Note 0 ml @ 0 mls/hr UNSCH OTHER ; Start 12/24/16 at 18:45 Pharmacy Profile Note 0 ml @ 0 mls/hr UNSCH OTHER ; Start 12/24/16 at 18:45; Status UNV Albuterol/ Ipratropium (Duoneb Neb) 1 ampule Q4HR NEB NEB Last administered on 12/28/16 15:36; Start 12/24/16 at 20:00; Stop 12/28/16 at 19:59; Status DC Methylprednisolone Sodium Succinate (SoluMEDROL INJ) 40 mg Q8H IV PUSH Last administered on 12/29/16 08:41; Start 12/25/16 at 00:00; Stop 12/29/16 at 13:42 ; Status DC Sodium Chloride (NS Flush) 2 ml UNSCH PRN IV FLUSH FLUSH AFTER USING IV ACCESS ; Start 12/24/16 at 19:00 Sodium Chloride (NS Flush) 2 ml BID IV FLUSH Last administered on 12/30/16 10: 08; Start 12/24/16 at 21:00 Famotidine (Pepcid Inj) 20 mg Q12HR IV PUSH Last administered on 12/29/16 08: 41; Start 12/24/16 at 21:00; Stop 12/29/16 at 13:42; Status DC Artificial Tears (Tears Naturale Opth Soln) 1 drop TID EACH EYE Last administered on 12/30/16 09:00; Start 12/25/16 at 09:00 Ondansetron HCl (Zofran Inj) 4 mg Q6H PRN IV PUSH NAUSEA OR VOMITING; Start 01/30 at 19:00 Albuterol Sulfate (Albuterol Neb) 2.5 mg Q2HR NEB PRN INH SOB/WHEEZING Last administered on 12/30/16 09:34; Start 12/24/16 at 19:00 Miscellaneous Information 1 Q361D XX ; Start 12/24/16 at 19:00 Chlorhexidine Gluconate (Chlorhexidine 2% Cloth) Taper DAILY@04 TOP ; Start 03/02 at 04:00; Stop 12/21/17 at 03:59 Chlorhexidine Gluconate (Chlorhexidine 2% Cloth) 3 pack UNSCH PRN TOP HYGIENIC CARE; Start 12/24/16 at 19:00 Senna/Docusate Sodium (Nadine-Colace) 1 tab BID PO Last administered on 10:07; Start 12/24/16 at 21:00 Magnesium Hydroxide (Milk Of Magnesia Liq) 30 ml Q12H PRN PO MILD - MODERATE CONSTIPATION; Start 12/24/16 at 19:00 Sennosides (Senokot) 17.2 mg Q12H PRN PO MODERATE - SEVERE CONSTIPATION; Start 12/24/16 at 19:00 Bisacodyl (Dulcolax Supp) 10 mg DAILY PRN RECTAL SEVERE CONSITIPATION; Start at 19:00 Lactulose (Lactulose Liq) 30 ml DAILY PRN PO SEVERE CONSITIPATION; Start at 19:00 Dextrose (D50w (Vial) Inj) 50 ml UNSCH PRN IV HYPOGLYCEMIA-SEE COMMENTS; Start 12/24/16 at 19:00 Glucagon (Glucagon Inj) 1 mg UNSCH PRN OTHER HYPOGLYCEMIA-SEE COMMENTS; Start 12/24/16 at 19:00 Insulin Human Regular (NovoLIN R SUPPLEMENTAL SCALE) 1 Q6HR SQ Last administered on 12/29/16 18:00; Start 12/25/16 at 00:00 Clopidogrel Bisulfate (Plavix) 75 mg DAILY PO Last administered on 12/30/16 10 :07; Start 12/25/16 at 09:00 Gabapentin (Neurontin) 100 mg TID PO Last administered on 12/30/16 10:06; Start 12/25/16 at 09:00 Aspirin (Aspirin Chew) 81 mg DAILY CHEW Last administered on 12/30/16 10:07; Start 12/25/16 at 09:00 Budesonide (Pulmicort Respule Neb) 0.5 mg Q12HR NEB NEB Last administered on 09:34; Start 12/24/16 at 20:00 Gentamicin Sulfate 130 mg/ Sodium Chloride 103.25 ml @ 200 mls/ hr NOW ONCE IV Last administered on 12/24/16 20:21; Start 12/24/16 at 20:00; Stop at 20:30; Status DC Gentamicin Sulfate 120 mg/ Sodium Chloride 103 ml @ 200 mls/hr Q12H IV Last administered on 12/25/16 21:25; Start 12/25/16 at 08:00; Stop 12/25/16 at 23:34 ; Status DC Iohexol (Omnipaque 350 Inj) 85 ml STK-MED ONCE IVCONTRAST Last administered on 12/24/16 21:13; Start 12/24/16 at 21:13; Stop 12/24/16 at 21:14; Status DC Heparin Sodium (Porcine) (Heparin Inj) 5,000 units Q8HR SQ Last administered on 12/30/16 05:00; Start 12/25/16 at 14:00 Norepinephrine Bitartrate 4 mg/ Sodium Chloride 250 ml @ 7.5 mls/hr TITRATE PRN IV Blood pressure management Last administered on 12/25/16 19:47; Start 03/02 at 06:45 Terbutaline Sulfate (Brethine Inj) 1 mg UNSCH PRN SQ For Extravasation; Start 12/25/16 at 06:45 Protein (Beneprotein Powder) 1 pack TID G-TUBE Last administered on 12/28/16 09:00; Start 12/25/16 at 09:00; Stop 12/28/16 at 14:40; Status DC Midazolam HCl 100 ml @ 2 mls/hr TITRATE PRN IV SEDATION Last administered on 04:53; Start 12/25/16 at 09:00; Stop 12/28/16 at 14:33; Status DC Miscellaneous Information SPECIFIC LAB TO BE MARGUERITE... ONCE ONCE .XX ; Start 12/25 at 15:15; Stop 12/25/16 at 15:15; Status DC Miscellaneous Information SPECIFIC LAB TO BE MARGUERITE... ONCE ONCE .XX Last administered on 12/25/16 19:30; Start 12/25/16 at 19:30; Stop 12/25/16 at 19:31 ; Status DC Miscellaneous Information SPECIFIC LAB TO BE MARGUERITE... ONCE ONCE .XX Last administered on 12/25/16 21:58; Start 12/25/16 at 20:30; Stop 12/25/16 at 20:31 ; Status DC Levofloxacin/ Dextrose 150 ml @ 100 mls/hr Q24H IV Last administered on 15:14; Start 12/25/16 at 16:00; Stop 12/29/16 at 14:58; Status DC Miscellaneous Information SPECIFIC LAB TO BE MARGUERITE... ONCE ONCE .XX Last administered on 12/26/16 12:45; Start 12/26/16 at 12:45; Stop 12/26/16 at 12:46 ; Status DC Gadodiamide (Omniscan Pf Inj) 13 ml STK-MED ONCE IVCONTRAST Last administered on 12/25/16 17:13; Start 12/25/16 at 17:13; Stop 12/25/16 at 17:14; Status DC Gentamicin Sulfate 100 mg/ Sodium Chloride 102.5 ml @ 200 mls/hr Q12H IV Last administered on 12/30/16 10:54; Start 12/26/16 at 08:00 Miscellaneous Information SPECIFIC LAB TO BE MARGUERITE... ONCE ONCE .XX Last administered on 12/27/16 07:45; Start 12/27/16 at 07:45; Stop 12/27/16 at 07:46 ; Status DC Miscellaneous Information SPECIFIC LAB TO BE MARGUERITE... ONCE ONCE .XX Last administered on 12/28/16 12:45; Start 12/28/16 at 12:45; Stop 12/28/16 at 12:46 ; Status DC Hydromorphone HCl (Dilaudid) 4 mg Q6HR PRN PO pain scale 5-10 Last administered on 12/30/16 06:32; Start 12/28/16 at 14:45 Vancomycin HCl 1000 mg/Sodium Chloride 250 ml @ 250 mls/hr Q12H IV Last administered on 12/30/16 00:00; Start 12/29/16 at 01:00 Miscellaneous Information SPECIFIC LAB TO BE MARGUERITE... ONCE ONCE .XX ; Start 12/30 at 12:45; Stop 12/30/16 at 12:46 Furosemide (Lasix Inj) 40 mg STAT ONCE IV PUSH Last administered on 12/28/16 17:09; Start 12/28/16 at 16:33; Stop 12/28/16 at 16:34; Status DC Fentanyl Citrate (fentaNYL INJ) 100 mcg STK-MED ONCE .ROUTE Last administered on 12/28/16 17:10; Start 12/28/16 at 15:54; Stop 12/28/16 at 15:55; Status DC Fentanyl Citrate (fentaNYL INJ) 100 mcg NOW ONCE IV ; Start 12/28/16 at 17:15; Stop 12/28/16 at 17:16; Status DC Lorazepam (Ativan Inj) 2 mg NOW ONCE IV ; Start 12/28/16 at 17:15; Stop at 17:16; Status DC Furosemide (Lasix Inj) 40 mg NOW ONCE IV PUSH ; Start 12/28/16 at 17:15; Stop 12/28/16 at 17:16; Status DC Furosemide (Lasix Inj) 40 mg NOW ONCE IV PUSH Last administered on 12/29/16 08:30; Start 12/29/16 at 08:00; Stop 12/29/16 at 08:01; Status DC Furosemide (Lasix Inj) 40 mg Q12H IV PUSH Last administered on 12/30/16 10:06 ; Start 12/29/16 at 20:00 Methylprednisolone Sodium Succinate (SoluMEDROL INJ) 40 mg BID IV PUSH Last administered on 12/30/16 10:06; Start 12/29/16 at 21:00 Famotidine (Pepcid) 20 mg BID PO Last administered on 12/30/16 10:07; Start at 21:00 Polyethylene Glycol (Miralax) 17 gm ONCE ONCE PO Last administered on 15:25; Start 12/29/16 at 13:55; Stop 12/29/16 at 13:56; Status DC Lorazepam (Ativan) 1 mg Q8H PRN PO Anxiety Last administered on 12/30/16 05:00 ; Start 12/29/16 at 14:00 Levofloxacin (Levaquin) 750 mg DAILY PO Last administered on 12/30/16 10:06; Start 12/29/16 at 16:00; Stop 01/01/17 at 15:59 Miscellaneous Information SPECIFIC LAB TO BE ... ONCE ONCE .XX ; Start 12/30 at 07:45; Stop 12/30/16 at 07:46; Status DC Date of Insertion: Dec 24, 2016 Line: Central Venous Catheter Side: Right Location: Internal, Jugular A/P Problem List: (1) Endocarditis of aortic valve ICD Code: I35.8 - Other nonrheumatic aortic valve disorders (2) Elevated troponin ICD Code: R74.8 - Abnormal levels of other serum enzymes (3) Noncompliance ICD Code: Z91.19 - Patient's noncompliance with other medical treatment and regimen (4) Cocaine abuse ICD Code: F14.10 - Cocaine abuse, uncomplicated (5) IVDU (intravenous drug user) ICD Code: F19.90 - Other psychoactive substance use, unspecified, uncomplicated (6) Tobacco abuse ICD Code: Z72.0 - Tobacco use Status: Acute Assessment and Plan Acute hypoxemic hypercapnic respiratory failure/ Acute systolic CHF exacerbation Secondary to underlying sepsis, COPD and CHF. KIRSTIN 12/22 revealed EF 40%. Global hypokinesis. S/p intubation/ extubation. Currently on 6L NC and satting in the high 90s. - Albuterol/ipratropium aerosols every 4 hours with albuterol aerosols every 2 hours when necessary dyspnea. - Add budesonide 0.5/21 inhalation twice a day. - DC Solu-Medrol. Start prednisone. - PT/ OT. - IS, encourage ambulation. - Patient off oxygen. - Decrease Lasix 20 mg IV twice a day. NSTEMI Likely type II demand ischemia. Off Levophed. - Continue aspirin 81 mg daily and clopidogrel 75 mg by mouth daily. Also on a statin. - cardiology following. Consider cath if stable. Acute toxic metabolic encephalopathy Secondary to hypoxemia/ severe sepsis. S/p intubation/ extubation. - seems resolved. Anemia Microcytic. - will obtain iron studies, B12, folate and Hemoccult. - follow CBC and transfuse as needed. Malnutrition/ Constipation The pt is tolerating a diet. Was previously on tube feeds. - Famotidine for GI prophylaxis. - on Miralax as needed. Endocarditis/ Leg wound infection/ Bacteremia The pt has left the hospital AMA several times while being treated. Enterococcus faecalis aortic valve endocarditis; MRSA wound infection. ID following. - Currently on vancomycin, gentamicin per infectious disease. Chronic pain syndrome/ Peripheral neuropathy There is no indication for IV pain medication. Will wean off IV pain medication and start oral medication. This can be follow-up as outpatient. - continue home meds. PPx: Heparin Van,Zoya Liv MD Dec 30, 2016 11:47
[2016-12-30 12:00] VITALS: BP 110/57; PULSE 87; RESP 20; TEMP 98.1; O2SAT 97
[2016-12-30 12:36] LABS: GENTAMICIN TROUGH 0.9 MCG/ML (0.0-2.0)
[2016-12-30 13:06] LABS: VANCOMYCIN TROUGH 22.3 MCG/ML (5.0-10.0)
[2016-12-30] MEDS: VANCOMYCIN 1,000 MG/NS 250 ML IV SCH ×4 (13:07)
[2016-12-30] MEDS ORDERED: FUROSEMIDE 20 MG/2 ML VIAL IV PUSH SCH (18:00)
[2016-12-31] MEDS ORDERED: predniSONE 50 MG TAB PO SCH (09:00)
[2017-01-01] MEDS ORDERED: PHARMACY ORDERED LAB ONE (08:45)
--- NOTE | 2017-01-24 19:49 | HHI.DS ---
Discharge Summary Admission Date Dec 24, 2016 at 03:27 Discharge Date: Jan 29, 2017 Admitting Diagnosis SBE (1) Endocarditis of aortic valve ICD Code: I35.8 - Other nonrheumatic aortic valve disorders Diagnosis: Principal (2) Noncompliance ICD Code: Z91.19 - Patient's noncompliance with other medical treatment and regimen Diagnosis: Principal (3) Cocaine abuse ICD Code: F14.10 - Cocaine abuse, uncomplicated Diagnosis: Principal (4) IVDU (intravenous drug user) ICD Code: F19.90 - Other psychoactive substance use, unspecified, uncomplicated Diagnosis: Secondary (5) Tobacco abuse ICD Code: Z72.0 - Tobacco use Diagnosis: Secondary Status: Acute (6) Altered mental status ICD Code: R41.82 - Altered mental status Diagnosis: Principal Status: Acute (7) Gram-positive cocci bacteremia ICD Code: R78.81 - Bacteremia Diagnosis: Principal (8) Non-ST elevation CO (NSTEMI) ICD Code: I21.4 - Non-ST elevation (NSTEMI) myocardial infarction Diagnosis: Principal (9) MRSA (methicillin resistant Staphylococcus aureus) ICD Code: A49.02 - MRSA (methicillin resistant Staphylococcus aureus) Diagnosis: Principal Status: Chronic Procedures see hospital course Brief History - From Admission This is a 61-year-old male with a PMH of Hepatitis C, CAD, Tobacco Abuse and IVDU who was brought to the ER by EMS secondary to complaints of SOB starting earlier tonight. Denies fever, chills, cough or chest pain. Multiple admits recently for similar complaints, however LEFT AMA during each hospitalization. Admitted 12/17/16 for NSTEMI and Sepsis/PNA, Blood Cultures 12/17/16 +E. Faecalis 4/ 4, s/p eval by ID, on Vanc however LEFT AMA 12/19/16 prior to completion of treatment. Re-admitted 12/21/16 w/ STEMI, s/p KIRSTIN 12/22/[address] Paredes, found to have AV Vegetation, however LEFT AMA once again. Blood Cultures 12/22/16 negative x2. Previous Urine Drug Screen +Cocaine however denies ingestion. Urine Drug Screen from [facility] pending. On arrival, BP 109/56, HR 91, O2 sat 100% on RA, Afebrile. CBC at baseline. Chemistry essentially unremarkable. Trop 0.14, previously 0.25 on 12/21/16. CXR w/ small right effusion. Imaging Last Impressions Chest X-Ray 12/28/16 0000 Signed Impressions: Service Date/Time: December 15:47 - CONCLUSION: Worsening infiltrate right lower lobe. Diffuse perihilar vascular congestion. Both clearly worse than the previous study Beck Vazquez MD Cervical Spine MRI 12/25/16 0000 Signed Impressions: Service Date/Time: Sunday, December 25, 2016 16:11 - CONCLUSION: 1. Posterior disc osteophyte complex at C3-4 causing cord flattening. No significant canal stenosis. 2. Mild broad-based posterior disc osteophyte complex slightly eccentric to left at C4-5. No canal stenosis. 3. Small posterior disc osteophyte complex C6-7 without canal stenosis. 4. Anterior fusion C5-6. 5. Uncovertebral hypertrophy causing scattered neural foraminal narrowing as above. Oracio Birmingham MD CT Angiography 12/24/16 0000 Signed Impressions: Service Date/Time: Saturday, December 24, 2016 21:10 - CONCLUSION: 1. Marked interval worsening of bilateral patchy airspace disease. 2. Enlarging pleural effusions. 3. No evidence of pulmonary embolism. 4. Stable position of support devices. Cholo Nixon MD PE at Discharge GENERAL: in NAD CARDIOVASCULAR: Regular rate and rhythm without murmurs, gallops, or rubs. RESPIRATORY: Breath sounds equal bilaterally. No accessory muscle use. GASTROINTESTINAL: Abdomen soft, non-tender, nondistended. MUSCULOSKELETAL: No cyanosis, or edema. BACK: Nontender without obvious deformity. No CVA tenderness. Pt update on day of discharge received page from nurse stating patient left AMA because he was taken off IV pain medication. see progress note from day of discharge. Hospital Course Acute hypoxemic hypercapnic respiratory failure/ Acute systolic CHF exacerbation Secondary to underlying sepsis, COPD and CHF. KIRSTIN 12/22 revealed EF 40%. Global hypokinesis. -patient was intubated and extubated and gradually weaned off oxygen with treatment below. - patient was put on Albuterol/ipratropium aerosols every 4 hours with albuterol aerosols every 2 hours when necessary dyspnea. Later budesonide 0.5/ 21 inhalation twice a day was added. -He was also put on solumedrol and was wean off onto oral prednisone. -for CHF he was treated with IV lasix. -he was weaned off of oxygen during hospital course. NSTEMI Likely type II demand ischemia. -patient was put on Levophed. - he was put on aspirin 81 mg daily and clopidogrel 75 mg by mouth daily. Also on a statin. - cardiology was consulted and stated cath if stable. Acute toxic metabolic encephalopathy Secondary to hypoxemia/ severe sepsis. -underlying caused treated which resolved encephalopathy Anemia Microcytic. - studies obtained Malnutrition/ Constipation -was initially TF until he was. - Famotidine for GI prophylaxis. - on Miralax as needed. Endocarditis/ Leg wound infection/ Bacteremia The pt has left the hospital AMA several times while being treated. Enterococcus faecalis aortic valve endocarditis; MRSA wound infection. ID consulted. - was put on vancomycin, gentamicin per infectious disease. Patient left AMA and did not complete treatment. Chronic pain syndrome/ Peripheral neuropathy -patient was put on IV pain medication initially. He was later weaned off since this was chronic pain in which he left AMA. Pt Condition on Discharge: Stable Discharge Disposition: Disch w/ Home Health Serv (left against medical advice) Discharge Time: <= 30 minutes Zoya Wilkerson MD Jan 24, 2017 19:49
== END 2016-12-30 14:50 | disposition left against medical advice (07) | DRG 871 ==
LOC: NEPE 00:26 → NEDA 03:27 → NEPFCDU 05:10 → N03A 17:41 → N04A 12-29 19:00
PROVIDERS: ADMIT Family Medicine; ATTEND Family Medicine
PROC: 02HV33Z Insertion of Infusion Device into Superior Vena Cava, Percutaneous Approach (ICD-10-PCS; principal; 2016-12-24)
PROC: 5A1945Z Respiratory Ventilation, 24-96 Consecutive Hours (ICD-10-PCS; 2016-12-24)
PROC: 0BH17EZ Insertion of Endotracheal Airway into Trachea, Via Natural or Artificial Opening (ICD-10-PCS; 2016-12-24)
PROC: B543ZZA Ultrasonography of Right Jugular Veins, Guidance (ICD-10-PCS; 2016-12-24)
DX: A41.9 Sepsis, unspecified organism (principal); J96.01 Acute respiratory failure with hypoxia; I21.4 Non-ST elevation (NSTEMI) myocardial infarction; I33.0 Acute and subacute infective endocarditis; G92 Toxic encephalopathy; I50.23 Acute on chronic systolic (congestive) heart failure; J18.9 Pneumonia, unspecified organism; J96.02 Acute respiratory failure with hypercapnia; I11.0 Hypertensive heart disease with heart failure; I50.22 Chronic systolic (congestive) heart failure; E87.2 Acidosis; J44.1 Chronic obstructive pulmonary disease with (acute) exacerbation; E46 Unspecified protein-calorie malnutrition; L02.419 Cutaneous abscess of limb, unspecified; J44.0 Chronic obstructive pulmonary disease with (acute) lower respiratory infection; D50.9 Iron deficiency anemia, unspecified; R65.20 Severe sepsis without septic shock; G89.4 Chronic pain syndrome; E78.5 Hyperlipidemia, unspecified; G62.9 Polyneuropathy, unspecified; I35.8 Other nonrheumatic aortic valve disorders; I25.10 Atherosclerotic heart disease of native coronary artery without angina pectoris; K59.00 Constipation, unspecified; S81.802A Unspecified open wound, left lower leg, initial encounter; R73.9 Hyperglycemia, unspecified; B95.62 Methicillin resistant Staphylococcus aureus infection as the cause of diseases classified elsewhere; B19.20 Unspecified viral hepatitis C without hepatic coma; M81.0 Age-related osteoporosis without current pathological fracture; M19.90 Unspecified osteoarthritis, unspecified site; F17.210 Nicotine dependence, cigarettes, uncomplicated; F41.0 Panic disorder [episodic paroxysmal anxiety]; F14.10 Cocaine abuse, uncomplicated; Z68.21 Body mass index [BMI] 21.0-21.9, adult; Z79.891 Long term (current) use of opiate analgesic; Z86.14 Personal history of Methicillin resistant Staphylococcus aureus infection; Z86.73 Personal history of transient ischemic attack (TIA), and cerebral infarction without residual deficits; Z88.0 Allergy status to penicillin; Z91.19 Patient's noncompliance with other medical treatment and regimen
CPT/HCPCS: 31500; 36556; 36600; 71010; 71275; 72156; 76937; 80048; 80053; 80170; 80202; 80307; 82550; 82565; 82607; 82728; 82746; 82805; 82948; 83540; 83550; 83605; 83735; 84100; 84484; 85007; 85025; 85027; 85610; 85730; 86403; 87040; 87070; 87077; 87186; 87205; 87641; 93005; 94002; 94003; 94640; 94664; 96365; A9579; J1580; J1644; J1940; J1956; J2060; J2250; J2370; J2920; J3010; J3370; J7030; J7040; J7050; J7060; J7613; J7626; Q9967

== ENCOUNTER 2016-12-30 20:13 | Emergency (ER) | payer MEDICARE, MEDICAID ==
[~2016-12-30 20:13] MED LIST changes: -SUBO8MIS SL
[2016-12-30 20:18] VITALS: BP 71/41; PULSE 89; RESP 16; TEMP 98.3; O2SAT 97
[2016-12-30 20:34] VITALS: BP 80/48; PULSE 80; RESP 17; O2SAT 97
[2016-12-30] MEDS ORDERED: SODIUM CHLORID 0.9% 500 ML INJ 500 ML IV ONE (20:45)
--- NOTE | 2016-12-30 20:45 | PD ---
HPI Chief Complaint: Cardiac Complaint Time Seen by Provider: 20:19 Travel History International Travel<30 days: No Contact w/Intl Traveler<30days: No Traveled to known affect area: No History of Present Illness HPI 61-year-old male presents to the emergency department via EMS for IV antibiotics. The patient had left AMA today. He states this was due to inadequate pain management. The patient had left AMA on 2 other occasions as well. Patient was admitted for endocarditis of the aortic valve, elevated troponin, noncompliance, cocaine abuse, IV drug use. Patient states he has not used IV drugs in approximately months. Patient is being treated with gentamicin , vancomycin per infectious disease. Apparently, the patient pulled out his Winn catheter with the balloon intact earlier today. The patient also left AMA on 12/19 after being admitted for community acquired pneumonia, skin infection of the legs. He is also diagnosed with an STEMI at that time. He was also then seen back on 12/21 and STEMI alert was called at that time. However , due to positive blood cultures, he was not taken to the [facility]. He was treated medically. He had a KIRSTIN done on 12/22 which showed aortic valve vegetation. According to the last from infectious disease, the patient was to get vancomycin and gentamicin for 6 weeks from first negative blood culture. PFSH Past Medical History Hx Anticoagulant Therapy: Yes (PLAVIX) Arthritis: No Asthma: No Autoimmune Disease: No Blood Disorders: No Anxiety: No Depression: No Heart Rhythm Problems: Yes Cancer: No Cardiovascular Problems: Yes (CHEST PAIN WITH NEW ST ELEVATION (12/21/16)) High Cholesterol: No Chemotherapy: No Chest Pain: Yes Congestive Heart Failure: No Cirrhosis: Yes COPD: No Cerebrovascular Accident: Yes Diabetes: No Diminished Hearing: No Endocrine: No Gastrointestinal Disorders: Yes GERD: No Glaucoma: No Genitourinary: No Headaches: Yes Hepatitis: Yes (HEP-C) Hiatal Hernia: No Immune Disorder: No Implanted Vascular Access Dvce: No Musculoskeletal: Yes (WEAK IN LEGS) Neurologic: Yes (PAIN IN NECK REGION) Psychiatric: No Reproductive: No Respiratory: Yes (HE IS SOB WITH EXERTION; CURRENTLY HAS VIRAL PNA (12/21/16)) Integumentary: Yes (easily compromised) Immunizations Current: No Migraines: Yes Myocardial Infarction: Yes Pneumonia: Yes (VIRAL PNA) Radiation Therapy: No Seizures: No Sickle Cell Disease: No Sleep Apnea: No Thyroid Disease: No Ulcer: No Tetanus Vaccination: > 5 Years Influenza Vaccination: Yes Past Surgical History Appendectomy: Yes Body Medical Devices: METAL , SCREWS IN C5, C6 Cardiac Surgery: No Cholecystectomy: Yes Ear Surgery: No Endocrine Surgery: No Eye Surgery: Yes Genitourinary Surgery: No Neurologic Surgery: Yes (c5-c6 discectomy and plating ) Oral Surgery: No Pacemaker: No Thoracic Surgery: No Other Surgery: Yes (APPENDIX OUT. CERVICAL 3456 OLAF AND FUSION) Social History Alcohol Use: No Tobacco Use: Yes (4-5 CIGARS A DAY ) Substance Use: No (COCAINE BUT DENIES ANY RECENT USE) Allergies-Medications (Allergen,Severity, Reaction): Coded Allergies: penicillin G (Unverified Allergy, Intermediate, SOB, RASH, 12/30/16) Penicillins (Verified Allergy, Unknown, 12/30/16) Reported Meds & Prescriptions Reported Meds & Active Scripts Active Reported Atorvastatin (Atorvastatin Calcium) 10 Mg Tab 10 Mg PO HS Clonidine (Clonidine HCl) 0.1 Mg Tab 0.1 Mg PO BID Dilaudid (Hydromorphone HCl) 4 Mg Tab 4 Mg PO Q6H PRN Plavix (Clopidogrel Bisulfate) 75 Mg Tab 75 Mg PO DAILY Gabapentin 100 Mg Cap 100 Mg PO TID Review of Systems Except as stated in HPI: all other systems reviewed are Neg Physical Exam Narrative GENERAL: Thin male patient, afebrile. SKIN: Focused skin assessment warm/dry. Patient has scabs noted to bilateral lower extremities, but no evidence of infection. No erythema or drainage. HEAD: Normocephalic. Atraumatic. EYES: No scleral icterus. No injection or drainage. NECK: Supple, trachea midline. No JVD or lymphadenopathy. CARDIOVASCULAR: Regular rate and rhythm without murmurs, gallops, or rubs. RESPIRATORY: Breath sounds equal bilaterally. No accessory muscle use. Lungs sounds clear to auscultation. GASTROINTESTINAL: Abdomen soft, non-tender, nondistended. MUSCULOSKELETAL: No cyanosis, or edema. BACK: Nontender without obvious deformity. No CVA tenderness. Data Data Last Documented VS Vital Signs Date Time Temp Pulse Resp B/P (MAP) Pulse Ox O2 Delivery O2 Flow Rate FiO2 12/30/16 22:00 59 14 94/41 (58) 99 Room Air 12/30/16 20:18 98.3 Orders Orders Sodium Chlorid 0.9% 500 Ml Inj (Ns 500 M (12/30/16 20:45) Basic Metabolic Panel (Bmp) (12/30/16 21:00) Complete Blood Count With Diff (12/30/16 21:00) Lactic Acid Sepsis Protocol (12/30/16 21:00) Electrocardiogram (12/30/16 20:26) Admit Order (Ed Use Only) (12/30/16 22:05) Labs Laboratory Tests Test 12/30/16 21:13 White Blood Count 12.1 TH/MM3 Red Blood Count 4.81 MIL/MM3 Hemoglobin 12.4 GM/DL Hematocrit 37.3 % Mean Corpuscular Volume 77.5 FL Mean Corpuscular Hemoglobin 25.8 PG Mean Corpuscular Hemoglobin Concent 33.2 % Red Cell Distribution Width 16.6 % Platelet Count 302 TH/MM3 Mean Platelet Volume 8.0 FL Neutrophils (%) (Auto) 83.2 % Lymphocytes (%) (Auto) 9.7 % Monocytes (%) (Auto) 6.7 % Eosinophils (%) (Auto) 0.0 % Basophils (%) (Auto) 0.4 % Neutrophils # (Auto) 10.0 TH/MM3 Lymphocytes # (Auto) 1.2 TH/MM3 Monocytes # (Auto) 0.8 TH/MM3 Eosinophils # (Auto) 0.0 TH/MM3 Basophils # (Auto) 0.0 TH/MM3 CBC Comment DIFF FINAL Differential Comment Blood Urea Nitrogen 37 MG/DL Creatinine 1.20 MG/DL Random Glucose 119 MG/DL Calcium Level 8.9 MG/DL Sodium Level 136 MEQ/L Potassium Level 3.8 MEQ/L Chloride Level 93 MEQ/L Carbon Dioxide Level 32.4 MEQ/L Anion Gap 11 MEQ/L Estimat Glomerular Filtration Rate 62 ML/MIN Lactic Acid Level 2.7 mmol/L [facility] Medical Decision Making Medical Screen Exam Complete: Yes Emergency Medical Condition: Yes Medical Record Reviewed: Yes Differential Diagnosis Endocarditis versus noncompliance versus IV drug use versus pneumonia Narrative Course 61-year-old male presents back to the emergency department after leaving AMA today. He was diagnosed with endocarditis of the aortic valve with a history of IV drug use. Patient was to get 6 weeks of gentamicin and vancomycin. He left stating that he was getting inadequate pain relief. Patient is hypotensive on arrival. He is given normal saline 500 mL bolus. EKG shows sinus rhythm, heart rate 88, disease, marked T-wave abnormalities in V1, V2, V3. CBC, BMP, lactic acid ordered and pending. CBC shows leukocytosis 12.1, neutrophil percentage 83.2. BMP shows elevated BUN of 37. Lactic acid is 2.7. Dr. Calhoun accepted admission. Dr. Calhoun spoke to patient as the patient is continuously asking for pain medications. She instructed him that he is here for IV antibiotics. Patient is hypotensive and that pain medications are not indicated at this time. The patient decided he would leave AGAINST MEDICAL ADVICE. Patient is aware of risks of leaving AMA up to and including . AMA: The risks of leaving against medical advice without further evaluation treatment were discussed with the patient. These risks include cardiac dysfunction, cardiac dysrhythmia, possible heart attack, possible stroke or . The patient indicated understanding of these risks and appeared to have the capacity to make this decision. Diagnosis Primary Impression: Endocarditis of aortic valve Disposition: 07 AGAINST MEDICAL ADVICE Alejandrina Shearer Dec 30, 2016 20:45
[2016-12-30 21:00] VITALS: BP 85/50; PULSE 68; RESP 19; O2SAT 98
[2016-12-30 21:27] VITALS: BP 90/52; PULSE 65; RESP 12; O2SAT 98
[2016-12-30 21:34] LABS: BASOPHIL % 0.4 % (0.0-2.0); HEMATOCRIT 37.3 % (39.0-51.0); HEMO FLAGS DIFF FINAL; LYMPH % 9.7 % (9.0-44.0); LYMPHOCYTE # 1.2 TH/MM3 (1.0-4.8); MEAN CELL VOLUME 77.5 FL (80.0-100.0); MEAN CORPUSCULAR HEMOGLOBIN 25.8 PG (27.0-34.0); MEAN CORPUSCULAR HGB CONC 33.2 % (32.0-36.0); MONO % 6.7 % (0.0-8.0); NEUT % 83.2 % (16.0-70.0); PLATELET COUNT 302 TH/MM3 (150-450); RED BLOOD COUNT 4.81 MIL/MM3 (4.50-5.90); RED CELL DISTRIBUTION WIDTH 16.6 % (11.6-17.2); WHITE BLOOD COUNT 12.1 TH/MM3 (4.0-11.0)
[2016-12-30 21:57] LABS: BICARBONATE 32.4 MEQ/L (21.0-32.0); POTASSIUM 3.8 MEQ/L (3.5-5.1)
[2016-12-30 22:00] VITALS: BP 94/41; PULSE 59; RESP 14; O2SAT 99
--- NOTE | 2016-12-30 22:18 | PD ---
Data Data Last Documented VS Vital Signs Date Time Temp Pulse Resp B/P (MAP) Pulse Ox O2 Delivery O2 Flow Rate FiO2 12/30/16 22:00 59 14 94/41 (58) 99 Room Air 12/30/16 20:18 98.3 Orders Orders Sodium Chlorid 0.9% 500 Ml Inj (Ns 500 M (12/30/16 20:45) Basic Metabolic Panel (Bmp) (12/30/16 21:00) Complete Blood Count With Diff (12/30/16 21:00) Lactic Acid Sepsis Protocol (12/30/16 21:00) Electrocardiogram (12/30/16 20:26) Admit Order (Ed Use Only) (12/30/16 22:05) Labs Laboratory Tests Test 12/30/16 21:13 White Blood Count 12.1 TH/MM3 Red Blood Count 4.81 MIL/MM3 Hemoglobin 12.4 GM/DL Hematocrit 37.3 % Mean Corpuscular Volume 77.5 FL Mean Corpuscular Hemoglobin 25.8 PG Mean Corpuscular Hemoglobin Concent 33.2 % Red Cell Distribution Width 16.6 % Platelet Count 302 TH/MM3 Mean Platelet Volume 8.0 FL Neutrophils (%) (Auto) 83.2 % Lymphocytes (%) (Auto) 9.7 % Monocytes (%) (Auto) 6.7 % Eosinophils (%) (Auto) 0.0 % Basophils (%) (Auto) 0.4 % Neutrophils # (Auto) 10.0 TH/MM3 Lymphocytes # (Auto) 1.2 TH/MM3 Monocytes # (Auto) 0.8 TH/MM3 Eosinophils # (Auto) 0.0 TH/MM3 Basophils # (Auto) 0.0 TH/MM3 CBC Comment DIFF FINAL Differential Comment Blood Urea Nitrogen 37 MG/DL Creatinine 1.20 MG/DL Random Glucose 119 MG/DL Calcium Level 8.9 MG/DL Sodium Level 136 MEQ/L Potassium Level 3.8 MEQ/L Chloride Level 93 MEQ/L Carbon Dioxide Level 32.4 MEQ/L Anion Gap 11 MEQ/L Estimat Glomerular Filtration Rate 62 ML/MIN Lactic Acid Level 2.7 mmol/L [facility] Supervised Visit with FELECIA: Yes Narrative Course The history, exam, and medical decision-making in the associated midlevel provider note were completed with my assistance. I reviewed and agree with the findings presented. I attest that I had a [id number] encounter with the patient on the same day, and personally performed and documented my assessment and findings in the medical record. *My assessment and Findings: This is a 61-year-old male who has a history of endocarditis and aortic valve who presents to the emergency department having left AGAINST MEDICAL ADVICE earlier today requesting admission for IV antibiotics. He has a worsening EKG with deep T-wave inversions in Q waves in the anterior leads. A STEMI was called on him several days ago and he was not taken to the catheterization lab because of suspected that all the symptoms are secondary to infectious endocarditis. He was posted for admission and he spoke to Dr. Calhoun. Ultimately the patient decided again to leave against medical advice. Diagnosis Primary Impression: Endocarditis of aortic valve Disposition: 07 AGAINST MEDICAL ADVICE Janet Bolden MD Dec 30, 2016 22:18
[2016-12-30 23:26] LABS: LACTIC ACID GHOST NOT REPORTABLE
--- NOTE | 2016-12-31 12:52 | EKG ---
Date Performed: 12/30/2016 Time Performed: 20:26:09 PTAGE: 61 years EKG: Sinus rhythm WITH OCCASIONAL VENTRICULAR PREMATURE COMPLEXES MARKED T-WAVE ABNORMALITY, CONSIDER ANTEROLATERAL IS CHEMIA MODERATE T-WAVE ABNORMALITY, CONSIDER INFERIOR ISCHEMIA ABNORMAL ECG PREVIOUS TRACING : 12/24/2016 19.47 Compared to previous tracing, T wave changes are now more pronounced. DOCTOR: Arnie Kidd Interpretating Date/Time 12/31/2016 12:51:14
== END 2016-12-30 22:34 | disposition left against medical advice (07) ==
LOC: NEPC 20:13 → UNDOADMIN 22:07 → NEDA 22:07
DX: I38 Endocarditis, valve unspecified (principal); F14.10 Cocaine abuse, uncomplicated; K74.60 Unspecified cirrhosis of liver; B19.20 Unspecified viral hepatitis C without hepatic coma; I25.2 Old myocardial infarction; F17.290 Nicotine dependence, other tobacco product, uncomplicated; Z79.899 Other long term (current) drug therapy; Z86.73 Personal history of transient ischemic attack (TIA), and cerebral infarction without residual deficits; Z79.02 Long term (current) use of antithrombotics/antiplatelets
CPT/HCPCS: 80048; 83605; 85025; 93005; 96360; 99285; J7040